=== PATIENT | male | born 1960 | race Caucasian/White ===

== ENCOUNTER 2021-05-17 10:43 | Outpatient (REF) | payer OTHER, SELFPAY ==
[2021-05-17 10:46] LABS: MANUAL DIFF FLAG NO
[2021-05-17 10:52] LABS: Basophils Percent Auto 0.8 % (0-2); Eosinophils Absolute Auto 0.2 X10*3/uL (0.0-0.4); Eosinophils Percent Auto 2.9 % (0-4); Hematocrit 44.5 % (42.0-52.0); Hemoglobin 14.9 g/dl (14.0-18.0); Imm Gran Abs Auto 0.01 X10*3/uL (0.00-0.03); Imm Gran Pct Auto 0.2 % (0.0-0.4); Lymphocytes Absolute Auto 1.5 X10*3/uL (1.2-4.9); Mean Corpuscular HGB Conc 33.5 g/dl (31.0-36.0); Mean Corpuscular Volume 86.6 fL (80.0-98.0); Monocytes Absolute Auto 0.5 X10*3/uL (0.1-1.2); Monocytes Percent Auto 9.7 % (2-11); Neutrophils Absolute Auto 2.9 x10*3/uL (2.0-8.3); Neutrophils Percent Auto 56.4 % (45-73); Platelet Count 217 X10*3/uL (160-400); Red Blood Count 5.14 X10*6/uL (4.60-5.80); Red Cell Distribution Width 12.1 % (11.0-16.0); White Blood Count 5.1 X10*3/uL (4.8-10.8)
[2021-05-17 11:00] LABS: Appearance Urine CLEAR; Color Urine YELLOW; Glucose Urine UA NEG (NEG); Leukocyte Esterase Urine NEG (NEG); Nitrite Urine NEG (NEG); Specific Gravity - Urine 1.025 (1.005-1.025); Urine Blood NEG (NEG); Urine Ketones NEG (NEG); Urine Protein NEG (NEG-TRACE)
[2021-05-17 11:36] LABS: Alanine Aminotransferase 26 U/L (0-40); Albumin Level 4.3 g/dL (3.5-5.0); Alkaline Phosphatase 67 U/L (39-117); Anion Gap 10 (12-20); Aspartate Amino Transferase 21 U/L (5-37); Bilirubin Total 0.9 mg/dL (0.0-1.0); Blood Urea Nitrogen 13 mg/dL (9-16); Calcium 9.3 mg/dL (8.4-10.2); Carbon Dioxide 29 mmol/L (22-29); Chloride 108 mmol/L (96-108); Cholesterol 242 mg/dL; Estimated Glomerular Filt Rate > 60; Glucose Fasting 98 mg/dL (60-99); HDL Cholesterol 54 mg/dL; LDL Cholesterol Calculated 166 mg/dl; Sodium 143 mmol/L (135-145); Total Protein 7.2 g/dL (6.5-8.0); Triglycerides 113 mg/dL
[2021-05-17 11:45] LABS: PSA,Total (Free>4and<10) 0.66 ng/mL (0.00-4.00)
== END 2021-05-17 10:44 | disposition home or self-care (01) ==
LOC: HO.LNP 10:43
PROVIDERS: Visit Provider Internal Medicine
DX: Z00.00 Encounter for general adult medical examination without abnormal findings (principal); Z12.5 Encounter for screening for malignant neoplasm of prostate; I10 Essential (primary) hypertension; E78.00 Pure hypercholesterolemia, unspecified
CPT/HCPCS: 80053; 80061; 81003; 84153; 85025

== ENCOUNTER 2021-12-17 10:46 | Day surgery (SDC) | payer OTHER, SELFPAY ==
[2021-12-10 15:34] VITALS: BMI 30.8
[2021-12-10 15:38] VITALS: BMI 30.4
--- NOTE | 2021-12-14 08:49 | HO.ANESPROP2 ---
Documented by User: Candice Lange NP 12/14/21 08:50 HPI - Anesthesia Eval Consult details Narrative: 61yo M for Colonoscopy [facility] Past Medical History Medical History Seasonal allergies Surgical History Surgical History (Updated 12/10/21 @ 15:32 by Celsa Forman RN) H/O colonoscopy Hx of left inguinal hernia repair Hx of right inguinal hernia repair Social History Social History (Updated 12/10/21 @ 15:33 by Celsa Forman RN) Household Members: Spouse Are you a primary child day care provider to a significant other at home: No Do you presently have visiting nurse or other home services: No Patient Tobacco Use Status: Former Tobacco user Quit Date: as teenager Tobacco use type: Cigarette Use of substances other than those prescribed or required for medical reasons: No Have you been hit, kicked, punched, or otherwise hurt by someone within the past year? If so, by whom?: No Are you DNR?: No Advance Directives: No Advance Directives Information Provided: Yes (brochure mailed) Advance Directives on File: No Recently lost weight without trying: No Eating poorly because of decreased appetite: No Nutrition Risks: No Nutritional Risk Poor oral hygiene: No Meds Allergies Allergy/AdvReac Type Severity Reaction Status Date / Time ENVIRONMENTAL Allergy Intermediate HAYFEVER Uncoded 01/20/20 15:42 Home Medications Medication Instructions Recorded Confirmed Last Taken Type omega 8-rqn-xmz-fish oil 1,200 mg 1 cap PO DAILY 12/10/21 12/10/21 12/10/21 History (144 mg-216 mg) capsule (Fish Oil) Exam Exam Date and Time: December 14, 2021 0849 Height,Weight and Vital Signs: Height 5 ft 9 in Weight 93.44 kg Pertinent Lab Results Pertinent Lab Results: Laboratory Tests 05/17/21 05/17/21 07:30 07:30 WBC 5.1 Hgb 14.9 Hct 44.5 Plt Count 217 Sodium 143 Potassium 4.0 Chloride 108 Carbon Dioxide 29 BUN 13 Creatinine 1.07 Assessment and Plan Assessment Anesthesia Assessment: Chart Reviewed Documented by User: Vince Peck MD 12/17/21 12:01 [facility] Past Medical History Medical History Seasonal allergies Family History Family history of problems with anesthesia: No Surgical History Surgical History (Updated 12/10/21 @ 15:32 by Celsa Forman RN) H/O colonoscopy Hx of left inguinal hernia repair Hx of right inguinal hernia repair History of Problems with Anesthesia: No Social History Social History (Updated 12/10/21 @ 15:33 by Celsa Forman RN) Household Members: Spouse Are you a primary child day care provider to a significant other at home: No Do you presently have visiting nurse or other home services: No Patient Tobacco Use Status: Former Tobacco user Quit Date: as teenager Tobacco use type: Cigarette Use of substances other than those prescribed or required for medical reasons: No Have you been hit, kicked, punched, or otherwise hurt by someone within the past year? If so, by whom?: No Are you DNR?: No Advance Directives: No Advance Directives Information Provided: Yes (brochure mailed) Advance Directives on File: No Recently lost weight without trying: No Eating poorly because of decreased appetite: No Nutrition Risks: No Nutritional Risk Poor oral hygiene: No Meds Allergies Allergy/AdvReac Type Severity Reaction Status Date / Time ENVIRONMENTAL Allergy Intermediate HAYFEVER Uncoded 01/20/20 15:42 Home Medications Medication Instructions Recorded Confirmed Last Taken Type omega 2-wcx-yzy-fish oil 1,200 mg 1 cap PO DAILY 12/10/21 12/10/21 12/10/21 History (144 mg-216 mg) capsule (Fish Oil) Exam Airway Mallampati Class: II TM Dist: >3cm Neck ROM: Full Loose/Missing/Broken Teeth: No Heart: rrr Lungs: clear Assessment and Plan Final Anesthetic Review Family History of Problems with Anesthesia: No History of Problems with Anesthesia: No NPO: Yes ASA Class: I Final Preanesthetic Review: No Changes in Pt Med Stat, Meds/Allgs Chart Reviewed, Consent Obtained/Reviewed and Anes Risks/Benef Reviewed Patient Risk: Low Procedure Risk: Low Anesthetic Plan Anesthetic Plan: MAC: Disposition: Standard PACU
[2021-12-17 11:03] VITALS: BP 148/85; PULSE 70; RESP 17; TEMP 36.6; O2SAT 97
[2021-12-17] MEDS: Lactated Ringers 1,000 ML 100 ML IVCONT (11:25)
[2021-12-17 12:13] VITALS: BP 128/74; PULSE 64; RESP 16; TEMP 36.9; O2SAT 97
--- NOTE | 2021-12-17 12:56 | PM.OP ---
Brief Operative Note Date of Service: 12/17/21 Pre-op diagnosis: Screening Post-op diagnosis: other (Diverticulosis) Procedure: Colonoscopy to the cecum and TI Surgeon: Chilo Bennett Anesthesia: MAC Was an Corporation Secretary used for this Procedure?: No Estimated blood loss (mL): 0 Pathology: none sent Condition: stable Disposition: PACU
[2021-12-17 12:58] VITALS: BP 119/72; PULSE 67; RESP 20; TEMP 36.9; O2SAT 97
--- NOTE | 2021-12-17 23:16 | OP_ITS ---
SURGEON: Chilo Bennett MD INDICATIONS: The patient presents for evaluation of personal history of tubular adenoma of the colon and colorectal cancer screening. Full consent obtained from him for this, including risks of bleeding and perforation. PREOPERATIVE DIAGNOSIS: POSTOPERATIVE DIAGNOSIS: PROCEDURE PERFORMED: Colonoscopy to cecum and terminal ileum. ESTIMATED BLOOD LOSS: COMPLICATIONS: ANESTHESIA: Monitored anesthesia care. ASSISTANTS: SPECIMENS: PREOPERATIVE DIAGNOSES: Colorectal cancer screening and personal history of tubular adenoma of the colon. POSTOPERATIVE DIAGNOSES: Colorectal cancer screening and personal history of tubular adenoma of the colon, diverticulosis, internal hemorrhoids. DESCRIPTION OF PROCEDURE: The patient was placed in the left lateral decubitus position. The digital rectal exam revealed no abnormalities. The Olympus video pediatric colonoscope was entered into the rectum and advanced easily to the cecum. Once in the cecum, I did identify normal-appearing cecal pouch with appendiceal orifice and a normal-appearing ileocecal valve. The terminal ileum was cannulated and appeared normal. Scope was withdrawn back in the colon. The entire cecum and ileocecal valve appeared normal. The scope was slowly withdrawn assessing all mucosal surfaces carefully. Preparation was excellent. I did not visualize any sign of polyps, colitis, nor angiodysplasia. There was a mild amount of sigmoid diverticulosis. In the rectum, scope was retroflexed visualizing internal hemorrhoids, but no other pathology. The rectal mucosa appeared normal. Scope was straightened and withdrawn from the patient. He tolerated the procedure well and was returned to recovery area in stable condition. IMPRESSION: 1. Mild sigmoid diverticulosis. 2. Internal hemorrhoids. PLAN: I would recommend a repeat colonoscopy in 5 years for further surveillance. He will, otherwise, see me on a p.r.n. basis. MD DORCAS Gallardo/YING / [id number]
== END 2021-12-17 13:43 | disposition home or self-care (01) ==
PROVIDERS: PCP Internal Medicine; Visit Provider Internal Medicine
PROC: 0DJD8ZZ Inspection of Lower Intestinal Tract, Via Natural or Artificial Opening Endoscopic (ICD-10-PCS; CPT 45378; principal; 2021-12-17 12:00)
DX: Z12.11 Encounter for screening for malignant neoplasm of colon (principal); Z86.010 Personal history of colon polyps; K57.30 Diverticulosis of large intestine without perforation or abscess without bleeding; K64.8 Other hemorrhoids; J30.2 Other seasonal allergic rhinitis; Z79.899 Other long term (current) drug therapy; Z87.891 Personal history of nicotine dependence
CPT/HCPCS: 45378

== ENCOUNTER → 2022-07-01 08:06 | Outpatient (BNVA) | payer SELFPAY | PROVIDERS: PCP Internal Medicine; Visit Provider Internal Medicine | DX: Z02.79 Encounter for issue of other medical certificate (principal) ==

== ENCOUNTER 2022-07-08 11:12 | Outpatient (REF) | payer SELFPAY ==
[2022-07-08 11:19] LABS: MANUAL DIFF FLAG NO
[2022-07-08 11:33] LABS: Basophils Absolute Auto 0.1 X10*3/uL (0.0-0.2); Basophils Percent Auto 0.9 % (0-2); Eosinophils Absolute Auto 0.2 X10*3/uL (0.0-0.4); Eosinophils Percent Auto 3.8 % (0-4); Hematocrit 45.8 % (42.0-52.0); Hemoglobin 15.1 g/dl (14.0-18.0); Imm Gran Abs Auto 0.01 X10*3/uL (0.00-0.03); Imm Gran Pct Auto 0.2 % (0.0-0.4); Lymphocytes Absolute Auto 1.7 X10*3/uL (1.2-4.9); Lymphocytes Percent Auto 30.5 % (20-40); Mean Corpuscular Hemoglobin 28.5 pg (27.0-33.0); Mean Corpuscular Volume 86.6 fL (80.0-98.0); Mean Platelet Volume 11.9 fL (9.4-12.4); Monocytes Absolute Auto 0.5 X10*3/uL (0.1-1.2); Monocytes Percent Auto 8.8 % (2-11); Neutrophils Absolute Auto 3.1 x10*3/uL (2.0-8.3); Neutrophils Percent Auto 55.8 % (45-73); Platelet Count 213 X10*3/uL (160-400); Red Blood Count 5.29 X10*6/uL (4.60-5.80); Red Cell Distribution Width 12.8 % (11.0-16.0); White Blood Count 5.5 X10*3/uL (4.8-10.8)
[2022-07-08 12:01] LABS: Alanine Aminotransferase 30 U/L (0-40); Albumin Level 4.2 g/dL (3.5-5.0); Alkaline Phosphatase 66 U/L (39-117); Anion Gap 11 (12-20); Aspartate Amino Transferase 22 U/L (5-37); Blood Urea Nitrogen 18 mg/dL (9-16); Calcium 8.9 mg/dL (8.4-10.2); Carbon Dioxide 26 mmol/L (22-29); Chloride 107 mmol/L (96-108); Cholesterol 266 mg/dL; Estimated Glomerular Filt Rate > 60; Glucose Fasting 98 mg/dL (60-99); HDL Cholesterol 54 mg/dL; LDL Cholesterol Calculated 196 mg/dl; Sodium 140 mmol/L (135-145); Total Protein 6.8 g/dL (6.5-8.0); Triglycerides 84 mg/dL
[2022-07-08 12:16] LABS: PSA,Total (Free>4and<10) 0.81 ng/mL (0.00-4.00)
== END 2022-07-08 11:13 | disposition home or self-care (01) ==
LOC: HO.LNP 11:12
PROVIDERS: Visit Provider Internal Medicine
DX: Z00.00 Encounter for general adult medical examination without abnormal findings (principal); Z12.5 Encounter for screening for malignant neoplasm of prostate; E78.00 Pure hypercholesterolemia, unspecified; I10 Essential (primary) hypertension
CPT/HCPCS: 80053; 80061; 84153; 85025

== ENCOUNTER 2023-01-13 10:39 | Outpatient (REF) | payer OTHER, SELFPAY ==
[2023-01-13 11:29] LABS: Cholesterol 227 mg/dL (<200); HDL Cholesterol 52 mg/dL (>40); LDL Cholesterol Calculated 157 mg/dL (<100); Triglycerides 94 mg/dL (<150)
[2023-01-13 11:31] LABS: Alanine Aminotransferase 17 U/L (0-40); Alkaline Phosphatase 60 U/L (39-117); Aspartate Amino Transferase 16 U/L (5-37); Bilirubin Direct 0.2 mg/dL (0.0-0.5); Bilirubin Total 0.6 mg/dL (0.0-1.0); Total Protein 6.8 g/dL (6.5-8.0)
[2023-01-13 11:57] LABS: Reflex LDLD? No
== END 2023-01-13 10:40 | disposition home or self-care (01) ==
LOC: HO.LNP 10:39
PROVIDERS: PCP Internal Medicine; Visit Provider Internal Medicine
DX: E78.00 Pure hypercholesterolemia, unspecified (principal)
CPT/HCPCS: 80061; 80076

== ENCOUNTER 2023-07-11 11:53 | Outpatient (REF) | payer OTHER, SELFPAY ==
[2023-07-11 11:57] LABS: MANUAL DIFF FLAG NO
[2023-07-11 12:27] LABS: Basophils Absolute Auto 0.1 X10*3/uL (0.0-0.2); Eosinophils Absolute Auto 0.2 X10*3/uL (0.0-0.4); Eosinophils Percent Auto 3.6 % (0-4); Hemoglobin 15.1 g/dl (14.0-18.0); Imm Gran Abs Auto 0.02 X10*3/uL (0.00-0.03); Imm Gran Pct Auto 0.4 % (0.0-0.4); Lymphocytes Absolute Auto 1.7 X10*3/uL (1.2-4.9); Lymphocytes Percent Auto 31.7 % (20-40); Mean Corpuscular HGB Conc 33.6 g/dl (31.0-36.0); Mean Corpuscular Volume 86.5 fL (80.0-98.0); Mean Platelet Volume 11.4 fL (9.4-12.4); Monocytes Absolute Auto 0.5 X10*3/uL (0.1-1.2); Monocytes Percent Auto 9.6 % (2-11); Neutrophils Absolute Auto 2.8 x10*3/uL (2.0-8.3); Neutrophils Percent Auto 53.7 % (45-73); Platelet Count 217 X10*3/uL (160-400); White Blood Count 5.2 X10*3/uL (4.8-10.8)
[2023-07-11 12:29] LABS: Appearance Urine Clear; Color Urine Yellow; Glucose Urine UA Negative (Negative); Leukocyte Esterase Urine Negative (Negative); Nitrite Urine Negative (Negative); PH 6.5 (5.0-9.0); Specific Gravity - Urine 1.015 (1.005-1.025); Urine Blood Negative (Negative); Urine Ketones Negative (Negative); Urine Protein Negative (Neg-Trace)
[2023-07-11 12:35] LABS: Bacteria Urine None Seen (None Seen); Hyaline Casts Urine 0-2 /LPF (0-2); RBC Urine 0-2 /HPF (0-2); Squamous Epithelial Cell Urine 0-2 /HPF (0-2); WBC Urine 0-5 /HPF (0-5)
[2023-07-11 12:39] LABS: Estimated Average Glucose 105 mg/dL; Hemoglobin A1c % 5.3 % (<6.0)
[2023-07-11 12:48] LABS: Alanine Aminotransferase 23 U/L (0-40); Albumin Level 4.2 g/dL (3.5-5.0); Alkaline Phosphatase 71 U/L (39-117); Anion Gap 10 (12-20); Aspartate Amino Transferase 21 U/L (5-37); Bilirubin Total 0.9 mg/dL (0.0-1.0); Blood Urea Nitrogen 11 mg/dL (9-16); Carbon Dioxide 27 mmol/L (22-29); Chloride 106 mmol/L (96-108); Cholesterol 246 mg/dL (<200); Estimated Glomerular Filt Rate > 60; Glucose Fasting 93 mg/dL (60-99); HDL Cholesterol 52 mg/dL (>40); LDL Cholesterol Calculated 170 mg/dL (<100); Potassium 3.7 mmol/L (3.3-5.1); Sodium 139 mmol/L (135-145); Total Protein 7.1 g/dL (6.5-8.0); Triglycerides 121 mg/dL (<150)
[2023-07-11 13:06] LABS: PSA,Total (Free>4and<10) 0.97 ng/mL (0.00-4.00)
[2023-07-11 13:09] LABS: Creatinine Urine 144.49 mg/dL; Microalbum/Creatinine Ratio Ur 5.5 ug/mg cr (<30)
== END 2023-07-11 11:54 | disposition home or self-care (01) ==
LOC: HO.LNP 11:53
PROVIDERS: Visit Provider Internal Medicine
DX: Z00.00 Encounter for general adult medical examination without abnormal findings (principal); Z12.5 Encounter for screening for malignant neoplasm of prostate; I10 Essential (primary) hypertension; E78.00 Pure hypercholesterolemia, unspecified
CPT/HCPCS: 80053; 80061; 81001; 82043; 82570; 83036; 84153; 85025

== ENCOUNTER 2023-10-08 20:52 | Inpatient (IN) | payer OTHER, SELFPAY ==
--- NOTE | 2023-10-08 | ECG_ITS ---
Test Reason : CHEST PAIN Blood Pressure : / mmHG Vent. Rate : 067 BPM Atrial Rate : 067 BPM P-R Int : 142 ms QRS Dur : 092 ms QT Int : 428 ms P-R-T Axes : 058 -25 003 degrees QTc Int : 452 ms Normal sinus rhythm Normal ECG No previous ECGs available Referred By: Generic ED Physician Electronically Signed By:ALISA MCKEON MD
--- NOTE | ~2023-10-08 | US_ITS ---
EXAMINATION: US ABDOMEN LIMITED CLINICAL INFORMATION: Epigastric pain. COMPARISON: None available. TECHNIQUE: Real-time imaging of the gallbladder and common bile duct. FINDINGS: GALLBLADDER: The gallbladder is distended, measuring approximately 12 cm in length. Gallbladder wall thickness is at the upper limits of normal measuring 0.3 cm. Proximal gallstone identified which appears impacted at the gallbladder neck. Sonographic Dia sign is reportedly positive. COMMON BILE DUCT: Normal in caliber measuring 0.5 cm in diameter. Incidentally noted right hepatic cyst measuring up to 1.8 cm. US/US abdomen limited IMPRESSION: Distended gallbladder with gallstone, which appears impacted at the gallbladder neck. Sonographic Dia sign is reportedly positive. Findings are suspicious for acute cholecystitis in the proper clinical setting.
--- NOTE | ~2023-10-08 | XR_ITS ---
EXAMINATION: XR CHEST CLINICAL INFORMATION: Chest pain COMPARISON: None available. TECHNIQUE: Frontal view of the chest was obtained. FINDINGS: The cardiac and mediastinal contours are normal. The lungs are clear. No pleural effusion or pneumothorax. Degenerative changes of the spine. XR/XR chest 1V IMPRESSION: No evidence for acute disease in the chest.
--- NOTE | ~2023-10-08 | CT_ITS ---
EXAMINATION: CT ABDOMEN AND PELVIS WITH CONTRAST CLINICAL INFORMATION: Abdominal pain COMPARISON: None available. TECHNIQUE: Multidetector volumetric images were obtained from the superior aspect of the liver through the pubic symphysis following administration 85 mL of Omnipaque 350 intravenous contrast. Sagittal and coronal reformatted images were obtained on the technologist's workstation. Oral contrast: No This CT examination was performed using dose optimization techniques as appropriate, variously including the following: *Automated exposure control *Adjustment of mA and/or kV according to patient size (this includes techniques or standardized protocols for targeted exams where dose is matched to indication/reason for exam; i.e. extremities or head) *Use of iterative reconstruction technique DLP: 598 mGy-cm FINDINGS: LUNG BASES: The visualized lung bases are unremarkable. LIVER, GALLBLADDER, AND BILIARY TREE: The liver is normal in size, shape, and attenuation. Several scattered hepatic cysts are present, measuring up to approximately 6.3 cm in the left lobe. No biliary ductal dilatation is present. Proximal gallstones are present, and there is slight pericholecystic stranding which could reflect mild sequelae of acute cholecystitis. PANCREAS: Unremarkable. SPLEEN: Unremarkable. ADRENAL GLANDS: Unremarkable. KIDNEYS AND URETERS: Bilateral nephrograms are symmetric. No hydronephrosis or obstructing calculus identified. BLADDER: Unremarkable. GASTROINTESTINAL TRACT: Assessment for wall thickening in some segments of the colon is limited due to luminal collapse, though no significant pericolonic stranding is seen to strongly suggest a colitis. No evidence of bowel obstruction. The appendix is unremarkable. No free fluid or free air is seen. ABDOMINAL WALL: No significant hernia is appreciated. LYMPH NODES: Normal. VASCULAR: Scattered atherosclerotic calcification. PELVIC VISCERA: Unremarkable. OSSEOUS STRUCTURES: Mild degenerative changes in the spine. CT/CT abdomen pelvis w IV con IMPRESSION: Cholelithiasis with slight pericholecystic stranding which could reflect mild sequelae of acute cholecystitis in the proper clinical setting. Consider further evaluation with ultrasound.
--- NOTE | 2023-10-08 20:54 | ED_ITS ---
HPI - General Adult General Chief complaint: Chest Pain Stated complaint: Chest pain Time Seen by Provider: 10/08/23 21:31 Related Data Home Medications ?Medication ?Instructions ?Recorded ?Confirmed omega 4-pxi-izz-fish oil 1,200 mg 1 cap PO DAILY 12/10/21 12/10/21 (144 mg-216 mg) capsule (Fish Oil) Allergies Allergy/AdvReac Type Severity Reaction Status Date / Time ENVIRONMENTAL Allergy Intermediate HAYFEVER Uncoded 10/08/23 21:03 [facility] Past Medical History Medical History Seasonal allergies Surgical History Hx of left inguinal hernia repair Hx of right inguinal hernia repair H/O colonoscopy Social History Social History Household Members: Spouse Are you a primary healthcare corporate account director to a significant other at home: No Do you presently have visiting nurse or other home services: No Patient Tobacco Use Status: Former Tobacco user Tobacco use type: Cigarette Smoked in Last 30 Days: No Use of substances other than those prescribed or required for medical reasons: No Advance Directives: No Advance Directives Information Provided: No Do you have a plan to hurt others: No Plan Physical Exam ED Vital Signs: Vital Signs - 24 hr 10/08/23 21:01 10/08/23 21:26 10/08/23 23:47 Temperature 97.2 F 98.2 F 98.1 F Pulse Rate 57 54 64 Respiratory Rate 24 H 16 18 Blood Pressure 177/96 H 163/73 H 187/87 H Pulse Oximetry 95 98 99 Oxygen Delivery Method Room Air Room Air 10/09/23 01:48 10/09/23 03:47 Temperature 98.1 F 98.3 F Pulse Rate 63 66 Respiratory Rate 14 15 Blood Pressure 175/86 H 173/79 H Pulse Oximetry 98 95 Oxygen Delivery Method Room Air Room Air BMI result Body Mass Index 28.1 Course Course Course Narrative: This is a rapid medical exam performed by Krunal Temple NP: Additional HPI, ROS, PE not included below will be deferred to primary provider. Patient is a 62-year-old male presenting to the ED with complaint of chest pain, states it starts in the front and radiates through to the back, felt lightheaded. Has had similar episodes before but this is the most severe. Started on his way home from work around 5pm. Actively vomiting in triage. Worse after mowing the lawn and eating dinner. BP 177/96 in triage. Plan: EKG, labs, CXR Medications Administered Discontinued Medications Generic Name Dose Route Start Last Admin Trade Name Robyn PRN Reason Stop Dose Admin Hydromorphone HCl 0.5 mg 10/08/23 23:42 10/08/23 23:48 Hydromorphone Hcl 0.5 Mg/0.5 Ml Syringe IVPUSH 10/08/23 23:43 0.5 mg ONCE ONE Administration Protocol Hydromorphone HCl 0.5 mg 10/09/23 01:32 10/09/23 01:40 Hydromorphone Hcl 0.5 Mg/0.5 Ml Syringe IVPUSH 10/09/23 01:33 0.5 mg ONCE ONE Administration Protocol Sodium Chloride 1,000 mls @ 999 mls/hr 10/08/23 22:15 10/08/23 23:50 Ns IV 10/08/23 23:15 Infused .Q1H1M MARIANNE Infusion Ceftriaxone Sodium 2 gm/ 50 mls @ 100 mls/hr 10/09/23 03:50 10/09/23 04:47 Sodium Chloride IV 10/09/23 04:19 Infused ONCE ONE Infusion Iohexol 85 ml 10/08/23 22:22 10/08/23 22:22 Iohexol 350 Mg/Ml 100 Ml Infus..Btl IV 10/08/23 22:23 85 ml ONCE ONE Administration Metoclopramide HCl 10 mg 10/09/23 01:32 10/09/23 01:40 Metoclopramide Hcl 10 Mg/2 Ml Vial IVPUSH 10/09/23 01:33 10 mg ONCE ONE Administration Ondansetron HCl 4 mg 10/08/23 22:07 10/08/23 22:11 Ondansetron Hcl 4 Mg/2 Ml Vial IVPUSH 10/08/23 22:08 4 mg ONCE ONE Administration Ondansetron HCl 4 mg 10/08/23 23:43 10/08/23 23:48 Ondansetron Hcl 4 Mg/2 Ml Vial IVPUSH 10/08/23 23:44 4 mg ONCE ONE Administration Medical Decision Making Lab Data 10/08/23 21:10 10/08/23 21:10 Labs: Lab Results 10/08/23 Range/Units 21:10 WBC 7.8 (4.8-10.8) X10*3/uL RBC 5.06 (4.60-5.80) X10*6/uL Hgb 14.9 (14.0-18.0) g/dl Hct 41.6 L (42.0-52.0) % MCV 82.2 (80.0-98.0) fL MCH 29.4 (27.0-33.0) pg MCHC 35.8 (31.0-36.0) g/dl RDW 12.4 (11.0-16.0) % Plt Count 227 (160-400) X10*3/uL MPV 11.0 (9.4-12.4) fL Immature Gran % (Auto) 0.1 (0.0-0.4) % Neut % (Auto) 61.7 (45-73) % Lymph % (Auto) 28.0 (20-40) % [place] % (Auto) 6.9 (2-11) % Eos % (Auto) 2.3 (0-4) % Baso % (Auto) 1.0 (0-2) % Lymph # (Auto) 2.2 (1.2-4.9) X10*3/uL [place] # (Auto) 0.5 (0.1-1.2) X10*3/uL Eos # (Auto) 0.2 (0.0-0.4) X10*3/uL Baso # (Auto) 0.1 (0.0-0.2) X10*3/uL Abs Immat Gran (auto) 0.01 (0.00-0.03) X10*3/uL Absolute Neuts (auto) 4.8 (2.0-8.3) x10*3/uL Absolute Nucleated RBC 0.000 (0.0-0.012) X10*3/uL Nucleated RBC % (auto) 0.0 (0.0-0.2) /100WBC PT 11.7 (11.1-13.3) SEC INR 1.0 (0.9-1.1) Sodium 142 (135-145) mmol/L Potassium 3.7 (3.3-5.1) mmol/L Chloride 109 H (96-108) mmol/L Carbon Dioxide 19 L (22-29) mmol/L Anion Gap 18 (12-20) BUN 14 (9-16) mg/dL Creatinine 1.26 (0.5-1.4) mg/dL Estim Creat Clear Calc 65.2 Estimated GFR 58 Random Glucose 163 H (60-115) mg/dL Calcium 9.4 (8.4-10.2) mg/dL Total Bilirubin 0.5 (0.0-1.0) mg/dL AST 18 (5-37) U/L ALT 21 (0-40) U/L Alkaline Phosphatase 70 (39-117) U/L Troponin I High Sens < 2.7 (<3.5-35.0) ng/L Total Protein 7.4 (6.5-8.0) g/dL Albumin 4.4 (3.5-5.0) g/dL Lipase 49 (8-78) U/L Discharge Plan Discharge Clinical Impression: Acute cholecystitis Patient Disposition: Admitted As Inpatient Print Language: Malawian
[2023-10-08 21:01] VITALS: BP 177/96; PULSE 57; RESP 24; TEMP 36.2; O2SAT 95; BMI 28.1
[2023-10-08 21:15] LABS: MANUAL DIFF FLAG NO
[2023-10-08 21:20] LABS: Basophils Absolute Auto 0.1 X10*3/uL (0.0-0.2); Eosinophils Absolute Auto 0.2 X10*3/uL (0.0-0.4); Eosinophils Percent Auto 2.3 % (0-4); Hematocrit 41.6 % (42.0-52.0); Hemoglobin 14.9 g/dl (14.0-18.0); Imm Gran Abs Auto 0.01 X10*3/uL (0.00-0.03); Imm Gran Pct Auto 0.1 % (0.0-0.4); Lymphocytes Absolute Auto 2.2 X10*3/uL (1.2-4.9); Mean Corpuscular HGB Conc 35.8 g/dl (31.0-36.0); Mean Corpuscular Hemoglobin 29.4 pg (27.0-33.0); Mean Corpuscular Volume 82.2 fL (80.0-98.0); Monocytes Absolute Auto 0.5 X10*3/uL (0.1-1.2); Monocytes Percent Auto 6.9 % (2-11); Neutrophils Absolute Auto 4.8 x10*3/uL (2.0-8.3); Neutrophils Percent Auto 61.7 % (45-73); Platelet Count 227 X10*3/uL (160-400); Red Blood Count 5.06 X10*6/uL (4.60-5.80); Red Cell Distribution Width 12.4 % (11.0-16.0); White Blood Count 7.8 X10*3/uL (4.8-10.8)
[2023-10-08 21:26] VITALS: BP 163/73; PULSE 54; RESP 16; TEMP 36.8; O2SAT 98
[2023-10-08 21:28] LABS: Prothrombin Time 11.7 SEC (11.1-13.3)
[2023-10-08 21:36] LABS: Alanine Aminotransferase 21 U/L (0-40); Albumin Level 4.4 g/dL (3.5-5.0); Alkaline Phosphatase 70 U/L (39-117); Anion Gap 18 (12-20); Aspartate Amino Transferase 18 U/L (5-37); Bilirubin Total 0.5 mg/dL (0.0-1.0); Blood Urea Nitrogen 14 mg/dL (9-16); Calcium 9.4 mg/dL (8.4-10.2); Carbon Dioxide 19 mmol/L (22-29); Chloride 109 mmol/L (96-108); Creatinine Clr Calc Pharmacy 65.2; Estimated Glomerular Filt Rate 58; Glucose Random 163 mg/dL (60-115); Potassium 3.7 mmol/L (3.3-5.1); Sodium 142 mmol/L (135-145); Total Protein 7.4 g/dL (6.5-8.0)
[2023-10-08 21:50] LABS: Troponin-I High Sensitivity < 2.7 ng/L (<3.5-35.0)
--- NOTE | 2023-10-08 22:06 | ED_ITS ---
HPI - Chest Pain General Chief Complaint: Chest Pain Stated Complaint: Chest pain Time Seen by Provider: 10/08/23 21:31 History of Present Illness HPI narrative: Patient is a 62 old presented today with having epigastric pain radiating to the back. The pain started at approximately 17:00 today. It got better got worse again there has no change with food positive nausea vomiting. No abdominal surgery in the past. Had a previous episode something similar a couple of months ago. No coughing or congestion or upper respiratory symptoms. No history of diabetes, hypertension. Positive history of borderline cholesterol. No history of [place] no family history of [place]. Related Data Home Medications ?Medication ?Instructions ?Recorded ?Confirmed omega 3-ndk-rno-fish oil 1,200 mg 1 cap PO DAILY 12/10/21 12/10/21 (144 mg-216 mg) capsule (Fish Oil) Allergies Allergy/AdvReac Type Severity Reaction Status Date / Time ENVIRONMENTAL Allergy Intermediate HAYFEVER Uncoded 10/08/23 21:03 Review of Systems 2 Review of Systems: Positive abdominal pain Yes all other systems are reviewed and are negative PMFSH Past Medical History Attestation statement: The following information was validated with the patient. Medical History Seasonal allergies Surgical History Hx of left inguinal hernia repair Hx of right inguinal hernia repair H/O colonoscopy Social History Social History Household Members: Spouse Are you a primary daycare worker to a significant other at home: No Do you presently have visiting nurse or other home services: No Patient Tobacco Use Status: Former Tobacco user Tobacco use type: Cigarette Smoked in Last 30 Days: No Use of substances other than those prescribed or required for medical reasons: No Advance Directives: No Advance Directives Information Provided: No Do you have a plan to hurt others: No Plan Physical Exam 2 Vital Signs: Vital Signs: Last Vital Signs Temp 98.3 F 10/09/23 03:47 Pulse 66 10/09/23 03:47 Resp 15 10/09/23 03:47 BP 173/79 H 10/09/23 03:47 Pulse Ox 95 10/09/23 03:47 O2 Del Method Room Air 10/09/23 03:47 BMI result Body Mass Index 28.1 Appearance: Alert. Oriented X3. No acute distress. Eyes: Pupils equal, round and reactive to light. ENT: Pharynx normal. Neck: Normal inspection. Neck supple. No lymph nodes noted. No crepitus CVS: Normal heart rate and rhythm. Pulses normal. Normal S1 and S2 Respiratory: No respiratory distress. Breath sounds normal. No Wheezing. No rales Abdomen: Positive epigastric tenderness no rebound or guarding. No rigidity. No distention. good BS x4 Skin: Skin warm and dry. Normal skin color. Normal skin turgor. Extremities: No lower extremity edema. Neurovascular intact to all extremities. No Lacerations. No Rash Neuro: Oriented X 3. No motor deficit. No sensory deficit. Moving all extermities. No slurred speech Medications Administered Discontinued Medications Generic Name Dose Route Start Last Admin Trade Name Freq PRN Reason Stop Dose Admin Hydromorphone HCl 0.5 mg 10/08/23 23:42 10/08/23 23:48 Hydromorphone Hcl 0.5 Mg/0.5 Ml Syringe IVPUSH 10/08/23 23:43 0.5 mg ONCE ONE Administration Protocol Hydromorphone HCl 0.5 mg 10/09/23 01:32 10/09/23 01:40 Hydromorphone Hcl 0.5 Mg/0.5 Ml Syringe IVPUSH 10/09/23 01:33 0.5 mg ONCE ONE Administration Protocol Sodium Chloride 1,000 mls @ 999 mls/hr 10/08/23 22:15 10/08/23 23:50 Ns IV 10/08/23 23:15 Infused .Q1H1M MARIANNE Infusion Ceftriaxone Sodium 2 gm/ 50 mls @ 100 mls/hr 10/09/23 03:50 10/09/23 04:47 Sodium Chloride IV 10/09/23 04:19 Infused ONCE ONE Infusion Iohexol 85 ml 10/08/23 22:22 10/08/23 22:22 Iohexol 350 Mg/Ml 100 Ml Infus..Btl IV 10/08/23 22:23 85 ml ONCE ONE Administration Metoclopramide HCl 10 mg 10/09/23 01:32 10/09/23 01:40 Metoclopramide Hcl 10 Mg/2 Ml Vial IVPUSH 10/09/23 01:33 10 mg ONCE ONE Administration Ondansetron HCl 4 mg 10/08/23 22:07 10/08/23 22:11 Ondansetron Hcl 4 Mg/2 Ml Vial IVPUSH 10/08/23 22:08 4 mg ONCE ONE Administration Ondansetron HCl 4 mg 10/08/23 23:43 10/08/23 23:48 Ondansetron Hcl 4 Mg/2 Ml Vial IVPUSH 10/08/23 23:44 4 mg ONCE ONE Administration Medical Decision Making Medical Decision Making [facility] Narrative: Patient has abdominal pain from the epigastric area radiating to the back. CT scan consistent with having cholecystitis. An ultrasound confirms that there is gallbladder wall thickening there is a stone at the neck of the gallbladder consistent with having cholecystitis. Antibiotic was started. Patient's case discussed with surgery. Will admit Differential Diagnosis Differential Diagnoses: The differential diagnosis associated with the presentation includes ACS, pancreatitis, cholecystitis Admission/Observation Consideration of admission/observation: Escalation of care including admission/observation considered Consult Healthcare Provider Management of the patient was discussed with: Concrete Block Maker (Surgery) Lab Data [facility] Lab Attestation statement: I reviewed the patient's lab results. 10/08/23 21:10 10/08/23 21:10 Labs: Lab Results 10/08/23 Range/Units 21:10 WBC 7.8 (4.8-10.8) X10*3/uL RBC 5.06 (4.60-5.80) X10*6/uL Hgb 14.9 (14.0-18.0) g/dl Hct 41.6 L (42.0-52.0) % MCV 82.2 (80.0-98.0) fL MCH 29.4 (27.0-33.0) pg MCHC 35.8 (31.0-36.0) g/dl RDW 12.4 (11.0-16.0) % Plt Count 227 (160-400) X10*3/uL MPV 11.0 (9.4-12.4) fL Immature Gran % (Auto) 0.1 (0.0-0.4) % Neut % (Auto) 61.7 (45-73) % Lymph % (Auto) 28.0 (20-40) % [place] % (Auto) 6.9 (2-11) % Eos % (Auto) 2.3 (0-4) % Baso % (Auto) 1.0 (0-2) % Lymph # (Auto) 2.2 (1.2-4.9) X10*3/uL [place] # (Auto) 0.5 (0.1-1.2) X10*3/uL Eos # (Auto) 0.2 (0.0-0.4) X10*3/uL Baso # (Auto) 0.1 (0.0-0.2) X10*3/uL Abs Immat Gran (auto) 0.01 (0.00-0.03) X10*3/uL Absolute Neuts (auto) 4.8 (2.0-8.3) x10*3/uL Absolute Nucleated RBC 0.000 (0.0-0.012) X10*3/uL Nucleated RBC % (auto) 0.0 (0.0-0.2) /100WBC PT 11.7 (11.1-13.3) SEC INR 1.0 (0.9-1.1) Sodium 142 (135-145) mmol/L Potassium 3.7 (3.3-5.1) mmol/L Chloride 109 H (96-108) mmol/L Carbon Dioxide 19 L (22-29) mmol/L Anion Gap 18 (12-20) BUN 14 (9-16) mg/dL Creatinine 1.26 (0.5-1.4) mg/dL Estim Creat Clear Calc 65.2 Estimated GFR 58 Random Glucose 163 H (60-115) mg/dL Calcium 9.4 (8.4-10.2) mg/dL Total Bilirubin 0.5 (0.0-1.0) mg/dL AST 18 (5-37) U/L ALT 21 (0-40) U/L Alkaline Phosphatase 70 (39-117) U/L Troponin I High Sens < 2.7 (<3.5-35.0) ng/L Total Protein 7.4 (6.5-8.0) g/dL Albumin 4.4 (3.5-5.0) g/dL Lipase 49 (8-78) U/L Radiology Impression Discussion of test interpretation with radiology: I have reviewed the radiologist's reading. Independent Historian Clinical information obtained from an independent historian. History obtained from or confirmed by: Spouse Discharge Plan Discharge Clinical Impression: Acute cholecystitis Patient Disposition: Admitted As Inpatient Prescriptions: No Action omega 3-eyl-qdc-fish oil [Fish Oil] 1,200 (144-216) mg Capsule 1 cap PO DAILY Print Language: Romansh
[2023-10-08] MEDS: ondansetron HCL 4 MG/2 ML VIAL IVPUSH ×2 (22:11→23:48)
[2023-10-08] MEDS: 0.9 % Sodium Chloride 1,000 ML 999 ML IV (22:13)
[2023-10-08 22:21] LABS: Lipase 49 U/L (8-78)
[2023-10-08] MEDS: iohexoL 350 MG/ML 100 ML INFUS..BTL 85 ML IV (22:22)
[2023-10-08 23:47] VITALS: BP 187/87; PULSE 64; RESP 18; TEMP 36.7; O2SAT 99
[2023-10-08] MEDS: HYDROmorphone HCl 0.5 MG/0.5 ML SYRINGE IVPUSH (23:48)
[2023-10-09] VITALS (15 sets, daily range): BP systolic 115–175; BP diastolic 58–87; PULSE 59–82; RESP 14–18; TEMP 36.2–37.7; O2SAT 93–98; BMI 29.5
--- NOTE | 2023-10-09 01:32 | PC.NURSE ---
pt vomitting 2x in ED, pain is increasing. MD aware
[2023-10-09] MEDS: Metoclopramide HCl 10 MG/2 ML VIAL IVPUSH (01:40)
[2023-10-09] MEDS: HYDROmorphone HCl 0.5 MG/0.5 ML SYRINGE IVPUSH ×2 (01:40→08:43)
--- NOTE | 2023-10-09 03:03 | PC.NURSE ---
pt able to rest after electromedical service engineer per MAR. denies MAR
[2023-10-09] MEDS: cefTRIAXone sodium 2 GM in 0.9 % Sodium Chloride 50 ML IV (04:04)
--- NOTE | 2023-10-09 05:22 | P.HPGS_ITS ---
History of Present Illness History of Present Illness Date of Service: 10/09/23 Chief complaint: Acute cholecystitis Narrative: Ross Barber is a 62 year old male presenting with complaints of abdominal pain in the lower abdomen extending into the back beginning at 17:00 last evening after eating dinner. He reports a proximally three-month history of intermittent abdominal pain of short duration which persisted despite changing in diet. Current episode was is most severe and was associated with nausea and vomiting. He subsequently presented to the emergency department for further evaluation. Workup revealed normal WBC and LFTs however CT abdomen pelvis and ultrasound revealed gallstones within the gallbladder in the neck of the gallbladder. There was also wall thickening and a sonographic Dia sign. Findings are suggestive of acute cholecystitis. He has admitted to the surgical service for further management. Review of Systems Review of Systems: Yes all other systems are reviewed and are negative Constitutional: Constitutional: Reports chills, Denies fever(s), Denies headache(s), Reports poor appetite and Denies weakness ENT: Denies headache(s) Cardiovascular: Cardiovascular: Reports chest pain, Denies irregular heart rhythm, Denies palpitations and Denies dyspnea Respiratory: Respiratory: Denies cough, Denies excessive phlegm production and Denies dyspnea Gastrointestinal: Gastrointestinal: Reports abdominal pain, Reports bloating, Denies change in bowel habits, Denies constipation, Denies heartburn, Denies diarrhea, Reports nausea and Reports vomiting Genitourinary: Genitourinary: Denies difficulty urinating and Denies urinary frequency Musculoskeletal: Musculoskeletal: Denies back pain, Denies muscle weakness and Denies numbness Integumentary/Breasts: Skin/Breast: Denies changing lesions and Denies unusual bruising Neurologic: Denies headache(s), Denies numbness, Denies paresthesias and Denies weakness Psychiatric: Psychiatric: Denies anxiety and Denies depression Endocrine: Endocrine: Denies palpitations Hematologic/Lymphatic: Hematologic/Lymphatic: Denies lymphadenopathy PMFSH Past Medical History Medical History Seasonal allergies Surgical History Surgical History Hx of left inguinal hernia repair Hx of right inguinal hernia repair H/O colonoscopy Social History Social History Household Members: Spouse Are you a primary home care physical therapist to a significant other at home: No Do you presently have visiting nurse or other home services: No Patient Tobacco Use Status: Former Tobacco user Tobacco use type: Cigarette Meds Allergies Allergy/AdvReac Type Severity Reaction Status Date / Time ENVIRONMENTAL Allergy Intermediate HAYFEVER Uncoded 10/08/23 21:03 Active Medications: Current Medications Hydromorphone HCl (Hydromorphone Hcl 0.5 Mg/0.5 Ml Syringe) 0.5 mg IVPUSH Q3H PRN; Protocol PRN Reason: Pain, Severe (Pain Scale 7-10) Acetaminophen (Ofirmev) 1,000 mg in 100 mls @ 400 mls/hr IV Q6H MARIANNE Stop: 10/09/23 23:29 Dextrose/Lactated Ringer's (D5lr) 1,000 mls @ 125 mls/hr IVCONT .Q8H MARIANNE Ondansetron HCl (Ondansetron Hcl 4 Mg/2 Ml Vial) 4 mg IVPUSH QID PRN PRN Reason: Nausea Sodium Chloride (0.9 % Sodium Chloride Flush 3 Ml Syringe) 3 ml IVFLUSH QSHIFT MARIANNE Zolpidem Tartrate (Zolpidem Tartrate 5 Mg Tablet) 5 mg PO BEDTIME PRN PRN Reason: Insomnia Home Medications ?Medication ?Instructions ?Recorded ?Confirmed ?Last Taken ?Type omega 3-xtc-umb-fish oil 1,200 mg 1 cap PO DAILY 12/10/21 12/10/21 12/10/21 History (144 mg-216 mg) capsule (Fish Oil) Physical Exam Vital Signs: Vital Signs: Last Vital Signs Temp 98.3 F 10/09/23 03:47 Pulse 66 10/09/23 03:47 Resp 15 10/09/23 03:47 BP 173/79 H 10/09/23 03:47 Pulse Ox 95 10/09/23 03:47 O2 Del Method Room Air 10/09/23 03:47 BMI result Body Mass Index 28.1 Const: General: cooperative and no acute distress Nutritional Appearance: well nourished Orientation/consciousness: patient oriented x3 Limitations: no limitations HEENT: Head: Yes normocephalic and Yes atraumatic Ears: hearing grossly normal bilaterally Resp: Effort & Inspection: normal respiratory effort, no audible wheezes, no cough and no respiratory distress Cardio: Jugular venous distension: no JVD GI: Inspection: Yes normal to inspection Palpation (GI): Soft to palpation, Tenderness to palpation present (GI) in the LLQ, in the RLQ, in the RUQ and Dia's sign positive, no guarding, not rigid and No hepatosplenomegaly present Skin: Other: Warm, dry, no rash Neuro: General: patient oriented x3 Extrem: General: Yes no clubbing, cyanosis or edema Results Results Labs: Short CBC 10/08/23 Range/Units 21:10 WBC 7.8 (4.8-10.8) X10*3/uL Hgb 14.9 (14.0-18.0) g/dl Hct 41.6 L (42.0-52.0) % Plt Count 227 (160-400) X10*3/uL BMP 10/08/23 21:10 Sodium 142 Potassium 3.7 Chloride 109 H Carbon Dioxide 19 L BUN 14 Creatinine 1.26 Calcium 9.4 Liver Function 10/08/23 Range/Units 21:10 Total Bilirubin 0.5 (0.0-1.0) mg/dL AST 18 (5-37) U/L ALT 21 (0-40) U/L Alkaline Phosphatase 70 (39-117) U/L Albumin 4.4 (3.5-5.0) g/dL Abdomen CT scan report/results: image reviewed CT scan - pelvis: image reviewed Abdominal ultrasound report/results: image reviewed Assessment and Plan (1) Acute cholecystitis: Status: Acute Plan 62-year-old male patient presenting with complaints of abdominal pain found on workup to have acute cholecystitis due to cholelithiasis. He has had multiple episodes of similar pain, the current episode being the worst. We discussed options including dietary change verses laparoscopic/open cholecystectomy. After discussion of the procedure, risks, and alternatives, he consents to the laparoscopic or possible open cholecystectomy. Been added onto the operative schedule for today. He denies eating or drinking since 17:00 yesterday. Quality Stroke Does the patient have a stroke diagnosis?: No VTE Prior VTE?: No VTE Risk Level:: Surgical - moderate VTE Device Contraindication: N/A - Device Ordered VTE Drug Contraindication: Treatment Not Indicated Procedures Date of Service Date of Service: 10/09/23
[2023-10-09] MEDS: Acetaminophen 1,000 MG/100 ML PIGGYBACK 400 MG IV ×2 (05:47→17:36)
[2023-10-09] MEDS: cefoTEtan disodium 2 GM in 0.9 % Sodium Chloride 50 ML IV (06:07)
[2023-10-09] MEDS: Dextrose 5 % and Lactated Ring 1,000 ML 125 ML IVCONT ×3 (06:40→21:17)
--- NOTE | 2023-10-09 07:13 | PC.NURSE ---
This RN assumed care. Pt alert and oriented, breathing even and unlabored, skin warm and dry. Pt reports pain is more controlled at this time after medications. No nausea or new complaints. Surgery at bedside.
--- NOTE | 2023-10-09 07:41 | PC.NURSE ---
Report given to JAZZY RN
[2023-10-09] MEDS: ondansetron HCL 4 MG/2 ML VIAL IVPUSH (08:41)
--- NOTE | 2023-10-09 09:16 | PHA.MEDREC ---
Addendum entered by Verónica Rodriguez RPh 10/09/23 09:21: Verified by [facility] Original Note: Pharmacy Consult ? Medication Reconciliation Pharmacy has completed the medication reconciliation.
--- NOTE | 2023-10-09 09:35 | HO.ANESPROP2 ---
[facility] Active Problems Active Problems: All Active Problems Acute cholecystitis (Acute) Past Medical History Medical History Seasonal allergies Family History Family history of problems with anesthesia: No Surgical History Surgical History Hx of left inguinal hernia repair Hx of right inguinal hernia repair H/O colonoscopy History of Problems with Anesthesia: No Social History Social History Household Members: Spouse Are you a primary career development coordinator/teacher to a significant other at home: No Do you presently have visiting nurse or other home services: No Patient Tobacco Use Status: Former Tobacco user Tobacco use type: Cigarette Meds Allergies Allergy/AdvReac Type Severity Reaction Status Date / Time ENVIRONMENTAL Allergy Intermediate HAYFEVER Uncoded 10/09/23 08:02 Active Medications: Current Medications Hydromorphone HCl (Hydromorphone Hcl 0.5 Mg/0.5 Ml Syringe) 0.5 mg IVPUSH Q3H PRN; Protocol PRN Reason: Pain, Severe (Pain Scale 7-10) Last Admin: 10/09/23 08:43 Dose: 0.5 mg Acetaminophen (Ofirmev) 1,000 mg in 100 mls @ 400 mls/hr IV Q6H MARIANNE Stop: 10/09/23 23:29 Last Infusion: 10/09/23 06:07 Dose: Infused Dextrose/Lactated Ringer's (D5lr) 1,000 mls @ 125 mls/hr IVCONT .Q8H [facility] Last Admin: 10/09/23 06:40 Dose: 125 mls/hr Ondansetron HCl (Ondansetron Hcl 4 Mg/2 Ml Vial) 4 mg IVPUSH QID PRN PRN Reason: Nausea Last Admin: 10/09/23 08:41 Dose: 4 mg Sodium Chloride (0.9 % Sodium Chloride Flush 3 Ml Syringe) 3 ml IVFLUSH QSHIFT [facility] Last Admin: 10/09/23 07:15 Dose: Not Given Zolpidem Tartrate (Zolpidem Tartrate 5 Mg Tablet) 5 mg PO BEDTIME PRN PRN Reason: Insomnia Home Medications ?Medication ?Instructions ?Recorded ?Confirmed ?Last Taken ?Type omega 8-hnx-qme-fish oil 1,200 mg 1 cap PO DAILY 12/10/21 10/09/23 10/08/23 History (144 mg-216 mg) capsule (Fish Oil) cetirizine 10 mg capsule (Zyrtec) 10 mg PO DAILY 10/09/23 10/09/23 10/08/23 History multivitamin 1 tab PO DAILY 10/09/23 10/09/23 10/08/23 History Exam Height,Weight and Vital Signs: Height 5 ft 9 in Weight 86.183 kg Last Vital Signs Temp 99.8 F 10/09/23 09:18 Pulse 59 10/09/23 09:18 Resp 18 10/09/23 09:18 BP 147/71 H 10/09/23 09:18 Pulse Ox 95 10/09/23 09:18 O2 Del Method Room Air 10/09/23 09:18 Pertinent Lab Results Pertinent Lab Results: Laboratory Tests 10/08/23 21:10 WBC 7.8 RBC 5.06 Hgb 14.9 Hct 41.6 L MCV 82.2 MCH 29.4 MCHC 35.8 RDW 12.4 Plt Count 227 MPV 11.0 Immature Gran % (Auto) 0.1 Neut % (Auto) 61.7 Lymph % (Auto) 28.0 [place] % (Auto) 6.9 Eos % (Auto) 2.3 Baso % (Auto) 1.0 Lymph # (Auto) 2.2 [place] # (Auto) 0.5 Eos # (Auto) 0.2 Baso # (Auto) 0.1 Abs Immat Gran (auto) 0.01 Absolute Neuts (auto) 4.8 Absolute Nucleated RBC 0.000 Nucleated RBC % (auto) 0.0 PT 11.7 INR 1.0 Sodium 142 Potassium 3.7 Chloride 109 H Carbon Dioxide 19 L Anion Gap 18 BUN 14 Creatinine 1.26 Estim Creat Clear Calc 65.2 Estimated GFR 58 Random Glucose 163 H Calcium 9.4 Total Bilirubin 0.5 AST 18 ALT 21 Alkaline Phosphatase 70 Troponin I High Sens < 2.7 Total Protein 7.4 Albumin 4.4 Lipase 49 Airway Mallampati Class: I TM Dist: >3cm Neck ROM: Full Loose/Missing/Broken Teeth: No Heart: rrr Lungs: cta Assessment and Plan Assessment Anesthesia Assessment: Anesthesia Plan Discussed and Chart Reviewed Final Anesthetic Review Family History of Problems with Anesthesia: No History of Problems with Anesthesia: No NPO: Yes ASA Class: I Final Preanesthetic Review: No Changes in Pt Med Stat, Meds/Allgs Chart Reviewed, Consent Obtained/Reviewed and Anes Risks/Benef Reviewed Patient Risk: Low Procedure Risk: Intermediate Anesthetic Plan Anesthetic Plan: GA Disposition: Standard PACU
--- NOTE | 2023-10-09 11:42 | W.PM.OPN ---
Operative Note Operative Note Date of Service: 10/09/23 Narrative: Preoperative diagnosis: Acute cholecystitis, cholelithiasis Postoperative diagnosis: Same Procedure: Laparoscopic cholecystectomy Surgeon: Raul Butler MD Peanut Vendor: None Anesthesia: General endotracheal Indications for procedure: 62-year-old male patient presenting with complaints of abdominal in the right upper quadrant and epigastrium found to have thickened gallbladder with multiple gallstones in the neck of the gallbladder consistent with acute cholecystitis. Operative findings: Acutely inflamed and obstructed gallbladder with dense adhesions from omentum consistent with prior cholecystitis. Multiple gallstones at the neck of the gallbladder. Specimen: gallbladder Estimated blood loss: 20 mL Complications: None Procedure details: Patient was brought to the OR and placed in a supine position. After administering general anesthesia the patient's abdomen was prepped with ChloraPrep and draped in a sterile fashion. A surgical time-out was called the consent confirmed. Patient received preoperative antibiotics and Venodyne boots were in place. Local anesthesia consisting of 0.5% Sensorcaine without epinephrine was infiltrated in a periumbilical region. A 5 mm incision was made above the umbilicus in a transverse fashion. The Veress needle was then inserted while elevating abdominal cavity with towel clips. After positive drop test the abdomen was insufflated to a pressure of 15 mm of mercury. The Veress needle was then removed and a 5 mm trocar inserted. The camera was inserted in the abdomen explored. A 12 mm trocar was then placed in the epigastrium. Two 5 mm trocars placed in the right upper quadrant by the therapeutic recreation assistant. The patient was placed in reverse Trendelenburg positioning and rotated to the left. Dense adhesions were taken down using electrocautery. An overriding cystic artery was noted at the neck of the gallbladder. This was dissected off of the neck of the gallbladder. The gallbladder was grasped with the fundus and retracted cephalad by the therapeutic recreation assistant. The infundibulum was then grasped and retracted away from the liver bed, also by the therapeutic recreation assistant. The Dolphin dissected was then used by the surgeon to dissect the peritoneum off the infundibulum to reveal the junction with the cystic duct. Cystic artery was noted slightly medial and posterior to the cystic duct as noted above. After obtaining a critical view the cystic duct was doubly clipped and divided. The cystic artery was then doubly clipped and divided. The gallbladder was then dissected off the liver bed using electrocautery with an L hook. Hemostasis was assured all times using the electrocautery. When the gallbladder is completely dissected off the liver bed was placed in an Endo-Catch bag and brought out through the epigastric incision. The gallbladder was sent to pathology for further examination. The abdomen was then re-examined. The liver bed was irrigated and suctioned dry. No bleeding or bile leak could be identified. CO2 was then evacuated and all trocars removed. Fascia was closed at the epigastric incision using a [id number] 0 Polysorb suture. Skin was closed in all incisions using a subcuticular 4 0 Polysorb suture by both the surgeon and therapeutic recreation assistant. Sterile dressings consisting of Steri-Strips, 2 x 2 gauze, and Tegaderm were then applied. The patient tolerated the procedure well. Sponge instrument and needle counts reported as correct. The patient was transferred to PACU in stable condition.
[2023-10-10] MEDS: Acetaminophen 1,000 MG/100 ML PIGGYBACK 400 MG IV (00:28)
[2023-10-10 00:58] VITALS: RESP 18
[2023-10-10 03:06] VITALS: BP 129/67; PULSE 56; RESP 16; TEMP 36.1; O2SAT 94
[2023-10-10] MEDS: Dextrose 5 % and Lactated Ring 1,000 ML 125 ML IVCONT (04:57)
[2023-10-10 07:37] VITALS: BP 138/67; PULSE 58; RESP 16; TEMP 36.2; O2SAT 94
--- NOTE | 2023-10-10 07:48 | P.PNGS_ITS ---
Subjective Subjective Date of Service: 10/10/23 Interval history: Patient feels improved. Denies nausea or vomiting. Was able to tolerate a diet yesterday. Physical Exam 2 Vital Signs: Vital Signs: Last Vital Signs Temp 97.1 F 10/10/23 07:37 Pulse 58 10/10/23 07:37 Resp 16 10/10/23 07:37 BP 138/67 10/10/23 07:37 Pulse Ox 94 10/10/23 07:37 O2 Del Method Room Air 10/10/23 07:37 O2 Flow Rate 2 10/09/23 12:23 BMI result Body Mass Index 29.5 Const: General: no acute distress Nutritional Appearance: well nourished Orientation/consciousness: patient oriented x3 Resp: Effort & Inspection: normal respiratory effort GI: Other: Soft, nondistended, wounds clean, dry, and intact without redness or discharge. Neuro: General: patient oriented x3 Extrem: Other: No edema Objective Data Active Medications Hydromorphone HCl (Hydromorphone Hcl 0.5 Mg/0.5 Ml Syringe) 0.5 mg IVPUSH Q3H PRN; Protocol PRN Reason: Pain, Severe (Pain Scale 7-10) Last Admin: 10/09/23 08:43 Dose: 0.5 mg Documented By: ISABELLA Dextrose/Lactated Ringer's (D5lr) 1,000 mls @ 125 mls/hr IVCONT .Q8H MARIANNE Last Admin: 10/10/23 04:57 Dose: 125 mls/hr Documented By: ADOLFO Ondansetron HCl (Ondansetron Hcl 4 Mg/2 Ml Vial) 4 mg IVPUSH QID PRN PRN Reason: Nausea Last Admin: 10/09/23 08:41 Dose: 4 mg Documented By: ISABELLA Oxycodone HCl (Oxycodone Hcl Immed Release 5 Mg Tablet) 5 mg PO Q6H PRN PRN Reason: Pain, Moderate(Pain Scale 4-6) Sodium Chloride (0.9 % Sodium Chloride Flush 3 Ml Syringe) 3 ml IVFLUSH QSHIFT MARIANNE Last Admin: 10/10/23 07:43 Dose: Not Given Documented By: URBAN Non-Admin Reason: IV Running Zolpidem Tartrate (Zolpidem Tartrate 5 Mg Tablet) 5 mg PO BEDTIME PRN PRN Reason: Insomnia Labs 10/08/23 21:10 10/08/23 21:10 Procedures Date of Service Date of Service: 10/10/23 Progress Note: A&P Assessment and plan (1) Acute cholecystitis: Status: Acute Plan 62-year-old male status post laparoscopic cholecystectomy pod 1. Patient tolerated the procedure well and his wounds are healing nicely. He was able to tolerate a regular diet without nausea or vomiting. He is ready for discharge to home. I recommended no lifting greater than 10 lb for 2 weeks. Should also avoid fatty/ fried foods for 1 month. I recommended follow-up in the office in 1 week for wound check. He is welcome to call sooner for any new concerns. Time Spent With Patient Time: Total time managing care of this patient today ____ minutes. Quality Stroke Does the patient have a stroke diagnosis?: No VTE Prior VTE?: No VTE Risk Level:: Surgical - moderate VTE Device Contraindication: N/A - Device Ordered VTE Drug Contraindication: Treatment Not Indicated
--- NOTE | 2023-10-10 09:20 | MHC.CM.PN ---
CM MET WITH PT AND SPOUSE AT BEDSIDE. PT IS INDEPENDENT AT BASELINE. +HCP AT PCP OFFICE. PCP DR. MELODY GODINEZ DP: PT HAS BEEN MEDICALLY CLEARED FOR DC HOME, NO SERVICES. SPOUSE WILL TRANSPORT
--- NOTE | 2023-10-10 14:32 | HO.POSTANES ---
Post Anesthesia Evaluation Post Anesthesia Evaluation Date of Service: 10/10/23 Vital Signs: Vital Signs Temp Pulse Resp BP Pulse Ox O2 Del Method 10/10/23 07:37 97.1 F 58 16 138/67 94 Room Air 10/10/23 03:06 97 F 56 16 129/67 94 Room Air Anesthesia: General Endotracheal-GETA Mental Status: Awake Pain Control: Satisfactory Nausea/Vomiting: None Hydration: Adequate Anesthesia-Related Issues: No Anes. Related Issues
--- NOTE | 2023-10-13 09:30 | PM.DS ---
DS: Providers Provider Date of Service: 10/13/23 Date of admission: 10/09/23 05:29 Date of discharge: 10/10/23 Primary care physician: Rory Tamez MD Admitting clinician: Raul Butler Discharging clinician: Raul Butler DS: Diagnosis Discharge Diagnosis (1) Acute cholecystitis: Status: Acute DS: Summary Hospital Course Hospital Course: Ross Barber is a 62 year old male presenting with complaints of abdominal pain in the lower abdomen extending into the back beginningon 10/08/2023 at 17:00 after eating dinner. He reported an approximally three-month history of intermittent abdominal pain of short duration which persisted despite changing in diet. Current episode was the most severe and associated with nausea and vomiting. He subsequently presented to the emergency department for further evaluation. Workup revealed normal WBC and LFTs however CT abdomen pelvis and ultrasound revealed gallstones within the gallbladder in the neck of the gallbladder. There was also wall thickening and a sonographic Dia sign. Findings are suggestive of acute cholecystitis. He has admitted to the surgical service for further management. He was made NPO and scheduled for a laparoscopic or possible open cholecystectomy. He subsequently underwent a laparoscopic cholecystectomy which was performed on 10/09/2023. Operative findings were consistent with acute cholecystitis due to cholelithiasis. He tolerated the procedure well and was started on a regular low-fat diet postoperatively. By postoperative day 1, he was tolerating regular diet and comfortable on oral pain medications. He was able to ambulate independently and felt radiation for discharge to home. He is discharged to home on 10/10/2023. Discharge instructions were to avoid fatty/fried foods for 1 month. He should avoid lifting greater than 10 lb for 2 weeks following the surgery. I have asked him to call the office for follow-up appointment in approximately 1 week for wound check. He is welcome to call sooner for any new concerns. Time spent discussing smoking cessation with patient: 3 to 10 minutes Status at Discharge Functional status at discharge: independent ambulation Overall status at discharge: patient is back to baseline Time Attestation Total time managing care of this patient today: 20 mintues. Discharge Coordination Time (in mins): 20 Quality: Safe Use of Opioids Does Pt have an Active Cancer Diagnosis on the Problem List?: No Quality: Stroke Does the patient have a stroke diagnosis?: No Physical Exam Vital Signs: Vital Signs: Last Vital Signs Temp 97.1 F 10/10/23 07:37 Pulse 58 10/10/23 07:37 Resp 16 10/10/23 07:37 BP 138/67 10/10/23 07:37 Pulse Ox 94 10/10/23 07:37 O2 Del Method Room Air 10/10/23 07:37 O2 Flow Rate 2 10/09/23 12:23 BMI result Body Mass Index 29.5 Const: General: no acute distress Nutritional Appearance: well nourished Orientation/consciousness: patient oriented x3 Resp: Effort & Inspection: normal respiratory effort GI: Other: Soft, nondistended, wounds clean, dry, and intact without redness or discharge. Neuro: General: patient oriented x3 Extrem: Other: No edema DS: Data Data Completed and Pending Completed studies during hospitalization [Text1]: Pending at discharge 10/09/23 11:12 Surgical [PTH] Routine Discharge Plan Discharge Anticipated Discharge Date/Time: 10/10/23 07:40 Patient Disposition: Home, Self-Care Discharge Diagnosis: Acute cholecystitis, cholelithiasis Referrals: Rory Tamez MD [Primary Care Provider] - 1 Week Raul Butler MD [Physician] - 1 Week Discharge Medications: New oxycodone 5 mg tablet 5 mg PO Q6H PRN (Reason: pain (scale score 7-10)) Qty: 15 0RF Rx Instructions: Partial Fill upon patient request. Continued omega 0-fgj-tnc-fish oil [Fish Oil] 1,200 (144-216) mg Capsule 1 cap PO DAILY multivitamin Tablet 1 tab PO DAILY Zyrtec 10 mg Capsule 10 mg PO DAILY Discharge Orders: Discharge Order (Routine); Ordered 10/10/23 Ordered By: Raul Butler Diet: Low fat, low cholesterol Activity on Discharge: No heavy lifting Stand Alone Forms: Patient Portal Discharge page Print Language: Latvian Activity Restrictions/Additional Instructions: No lifting > 10 pounds for 2 weeks Stay on low fat diet for 1 month No driving for one week Ice to the incision x 24 hours After 24 hours, use warm compress or heating pad on low as needed Take Tylenol Extra-strength 1-2 tabs every 6 hours as needed Oxycodone every 6-8 hours as needed for pain Colace 100 mg every day as needed for constipation Remove dressing in 3 days Follow up in office in one week (call office at [phone] for appointment). Care Plan Goals: Return to normal diet and activity Health Concerns: abdominal pain, upper abdomen Plan of Treatment: Laparoscopic cholecystectomy performed on 10/09/2023 Assessment: Acute cholecystitis due to cholelithiasis Discharge Date/Time: 10/10/23 09:59
== END 2023-10-10 09:59 | disposition home or self-care (01) | DRG 263 ==
LOC: HO.ED 10-09 05:06 → HO.EDOVER 10-09 05:31 → HO.S3 10-09 12:36
PROVIDERS: Registered Nurse Emergency; Admitting Provider Surgery; Emergency Provider Emergency Medicine Emergency Medical Services; PCP Internal Medicine; Visit Provider Surgery
PROC: 0FT44ZZ Resection of Gallbladder, Percutaneous Endoscopic Approach (ICD-10-PCS; CPT 47562; principal; 2023-10-09 10:00)
DX: K80.00 Calculus of gallbladder with acute cholecystitis without obstruction (principal); Z79.899 Other long term (current) drug therapy; Z87.891 Personal history of nicotine dependence
CPT/HCPCS: 36415; 71045; 74177; 76705; 80053; 83690; 84484; 85025; 85610; 88304; 93005; 99285; J0131; J0696; J1170; J2250; J2405; J2704; J2765; J2795; J3010; Q9967

== ENCOUNTER → 2023-10-08 20:55 | Outpatient (BNV) | payer OTHER, SELFPAY | PROVIDERS: Admitting Provider Surgery; Emergency Provider Emergency Medicine Emergency Medical Services; PCP Internal Medicine; Visit Provider Internal Medicine Cardiovascular Disease | DX: R07.9 Chest pain, unspecified (principal) | CPT/HCPCS: 93010 ==

== ENCOUNTER → 2023-10-09 05:29 | Outpatient (BNV) | payer OTHER, SELFPAY | PROVIDERS: Admitting Provider Surgery; Emergency Provider Emergency Medicine Emergency Medical Services; PCP Internal Medicine; Visit Provider Surgery | DX: K81.0 Acute cholecystitis (principal) | CPT/HCPCS: 47562; 99024; 99222 ==

== ENCOUNTER 2023-10-21 12:49 | Outpatient (AMB) | payer OTHER, SELFPAY ==
--- NOTE | 2023-10-21 13:09 | MHC.OFFVIS ---
Vital Signs 10/21/23 13:10 Height 5 ft 9 in Weight 192 lb 8 oz BMI 28.4 BP 130/75 Blood Pressure Location Lt brachial Position Sitting Pulse 69 Intake Visit Reasons: s/p lap cholecystectomy Intake Note: Patient is seen in office for post op assessment post laparoscopic cholecystectomy. Pt c/o: denies any concerns at the time of visit Op: 10/09/23 Torque Tester Required: No Accompanied by: Self / Same As Patient Allergies ENVIRONMENTAL Allergy (Intermediate, Uncoded 10/21/23 13:11) HAYFEVER HPI Comments Details: 62-year-old male patient status post laparoscopic cholecystectomy approximately 2 weeks ago for acute cholecystitis. He was found to have acutely inflamed gallbladder with gallstones in the neck of the gallbladder. He tolerated the procedure well and now feels much improved. He denies any abdominal pain, nausea or vomiting. His bowels are normal without diarrhea or constipation. [facility] Medical History Acute cholecystitis Seasonal allergies Surgical History Hx laparoscopic cholecystectomy (10/09/23) Hx of left inguinal hernia repair Hx of right inguinal hernia repair H/O colonoscopy Social History Household Members: Spouse Housing: House Are you a primary career development specialist to a significant other at home: No Do you presently have visiting nurse or other home services: No Patient Tobacco Use Status: Former Tobacco user Tobacco use type: Cigarette Second Hand Smoke Exposure: No service: No Physical Exam Vital Signs: Last Vital Signs Pulse 69 10/21/23 13:10 BP 130/75 10/21/23 13:10 BMI result Body Mass Index 28.4 Const General: no acute distress Nutritional Appearance: well nourished Orientation/consciousness: patient oriented x3 Resp Effort & Inspection: normal respiratory effort GI Other: Well-healed trocar incisions Inspection: Yes normal to inspection Palpation (GI): Soft to palpation, nontender, no guarding and not rigid Neuro General: patient oriented x3 Assessment & Plan Assessment & Plan (1) Acute cholecystitis: Code(s): K81.0 - Acute cholecystitis Category: Medical Plan Patient returns following laparoscopic cholecystectomy for acute cholecystitis. He is much improved with his wounds are healing nicely. He may resume normal activity without restrictions and should follow up as needed. Coding Level of Care Code Global (34469) Diagnoses Acute cholecystitis K81.0
[2023-10-21 13:10] VITALS: BP 130/75; PULSE 69; BMI 28.4
== END 2023-10-21 13:23 | disposition home or self-care (01) ==
PROVIDERS: PCP Internal Medicine; Visit Provider Surgery
DX: K81.0 Acute cholecystitis (principal)
CPT/HCPCS: 99024

== ENCOUNTER → 2023-10-21 12:49 | Outpatient (BNVA) | payer OTHER, SELFPAY | PROVIDERS: PCP Internal Medicine; Visit Provider Surgery | DX: Z09 Encounter for follow-up examination after completed treatment for conditions other than malignant neoplasm (principal); Z90.49 Acquired absence of other specified parts of digestive tract | CPT/HCPCS: 99212 ==

== ENCOUNTER 2024-01-19 10:44 | Outpatient (REF) | payer OTHER, SELFPAY ==
[2024-01-19 11:25] LABS: Cholesterol 231 mg/dL (<200); HDL Cholesterol 56 mg/dL (>40); LDL Cholesterol Calculated 156 mg/dL (<100); Triglycerides 98 mg/dL (<150)
== END 2024-01-19 10:45 | disposition home or self-care (01) ==
LOC: HO.LNP 10:44
PROVIDERS: Visit Provider Internal Medicine
DX: E78.00 Pure hypercholesterolemia, unspecified (principal)
CPT/HCPCS: 80061

== ENCOUNTER → 2024-03-26 13:50 | Outpatient (REF) | payer OTHER, SELFPAY ==
--- NOTE | 2024-03-26 13:53 | CA_ITS ---
Transthoracic Echocardiogram Patient (Last, First, Middle): Ross Barber, Gender: Male Date of : 1960 Age: 63 Procedure Date: 03/26/2024 Procedure Type: Transthoracic Echocardiogram Location: OP Height: 175.26 cm Weight: 85.73 kg BSA: 2.02 m2 Heart Rate: 61 bpm BP: 130 / 72 mmHg Continuous Improvement Facilitator: SAPNA Referring MD: Rory Tamez MD Medical Sales Associate: Enrrique Murphy MD Symptoms: G45.3 AMAUROSIS FUGAX Study Quality: Adequate w contrast ECG Rhythm: Sinus Conclusions: - 1. Normal LV ejection fraction of 65-70% 2. Mild aortic regurgitation noted 3. No gross pericardial effusion Findings Procedure Information Contrast agent, definity, is being given per protocol without apparent complications. The quality of the study was technically difficult. The study quality is limited by lung artifact. Left Ventricle Normal left ventricular size, thickness, and systolic function. The visually estimated ejection fraction is between 65-70%. Spectral Doppler is indicative of a normal filling pattern. Right Ventricle Normal right ventricular cavity size and systolic function. Atria Both atria are normal in size. There is no evidence of interatrial shunt by color Doppler and contrast. Aortic Valve Normal aortic valve structure and function. There is no aortic valve stenosis. There is mild aortic valve regurgitation. Mitral Valve Normal mitral valve structure and function. There is trace mitral valve regurgitation. There is no mitral valve stenosis. Pulmonic Valve The pulmonic valve is likely normal. Tricuspid Valve Likely normal tricuspid valve structure and function. Tricuspid regurgitation envelope is inadequate for calculation of right ventricular systolic pressure. Normal right atrial pressure. Great Vessels All visible segments of the aorta are normal in size. The pulmonary artery was not well visualized. There is no dilatation of the ascending aorta measuring 3.30 cm. Venous The inferior vena cava is normal in size and collapses greater than 50% with inspiration. Pericardium/Pleural There is no evidence of pericardial effusion. a large radiolucent structure seen in the liver suggestive of assist. Consider dedicated imaging Prior Study Comparison No prior study available for comparison. Measurements 2D Linear Measurements IVSd: 1.00 0.6-0.9/0.6-1.0 cm LVIDd: 5.58 3.9-5.3/4.2-5.9 cm LVIDd Index: 2.76 2.4-3.2/2.2-3.1 cm/m2 LVIDs: 3.99 2.0-3.6 cm LVPWd: 0.81 0.7-1.1 cm LA Diam: 3.80 2.7-3.8/3.0-4.0 cm LAIDs Index: 1.88 1.5-2.3 cm/m2 LV Mass: 238.87 67-162/88-224 g LV Mass Index: 118.25 43-95/49-115 g/m2 LVOT Diam: 2.20 3.0+(-)1.3 cm 2D Systolic Function EF 4C: 63.80 >55% EF 2C: 75.20 >55% EF BiP: 70.10 >55% Mitral Valve MV Pk E: 0.81 MV PK A: 0.90 MV Decel Time: 225.00 E/A: 0.90 E'Lateral: 7.40 E'Medial: 6.96 E/E' Med: 11.60 E/E' Lat: 10.90 PHT: 66.00 MVA PHT: 3.33 Decel Lassen: 3.57 Aortic Valve AoV Pk Gareth: 1.64 AoV Mn Gareth: 1.10 AoV VTI: 0.36 AoV Pk Grad: 11.00 Aov Mn Grad: 6.00 ARIANA Cont.VTI: 2.54 AI Pk Gareth: 4.57 AI Lassen: 2.53 LVOT LVOT Pk Gareth: 1.17 LVOT Mn Gareth: 0.78 LVOT VTI: 0.24 LVOT Pk Grad: 5.00 LVOT Mn Grad: 3.00 LVOT Diam: 2.20 LVOT Area: 3.80 Diastolic Function MV Pk E: 0.81 MV Pk A: 0.90 E/A: 0.90 E'Medial: 6.96 E/E' Med: 11.60 E' Laterial: 7.40 E/E' Lat: 10.90 Right Ventricle TAPSE (mm): 17.30 TVS' Gareth: 9.14 Tricuspid Valve RA Press: 3.00 Great Vessels Aorta Sinus of Valsalva: 3.00 2.0-3.5 cm Ao Asc: 3.30 2.1-3.4 cm Pulmonary Valve PV Pk Gareth: 0.91 Peak PV Grad: 3.00 Updated in Other Vendor System with Status of Final Enrrique Murphy MD electronically signed on 03/26/2024 4:12:24 PM with status of Final
== END ==
LOC: HO.CARD 13:50
PROVIDERS: PCP Internal Medicine; Visit Provider Internal Medicine
DX: G45.3 Amaurosis fugax (principal)
CPT/HCPCS: 93306; Q9957

== ENCOUNTER → 2024-03-26 13:53 | Outpatient (BNV) | payer OTHER, SELFPAY | PROVIDERS: PCP Internal Medicine; Visit Provider Internal Medicine Cardiovascular Disease | DX: I35.1 Nonrheumatic aortic (valve) insufficiency (principal); G45.3 Amaurosis fugax | CPT/HCPCS: 93306 ==

== ENCOUNTER 2024-07-16 10:39 | Outpatient (REF) | payer OTHER, SELFPAY ==
[2024-07-16 10:42] LABS: MANUAL DIFF FLAG NO
[2024-07-16 11:11] LABS: Basophils Absolute Auto 0.1 X10*3/uL (0.0-0.2); Eosinophils Absolute Auto 0.2 X10*3/uL (0.0-0.4); Eosinophils Percent Auto 2.9 % (0-4); Hematocrit 43.4 % (42.0-52.0); Hemoglobin 14.9 g/dl (14.0-18.0); Lymphocytes Absolute Auto 1.6 X10*3/uL (1.2-4.9); Lymphocytes Percent Auto 31.1 % (20-40); Mean Corpuscular HGB Conc 34.3 g/dl (31.0-36.0); Mean Corpuscular Hemoglobin 28.9 pg (27.0-33.0); Mean Corpuscular Volume 84.1 fL (80.0-98.0); Mean Platelet Volume 11.6 fL (9.4-12.4); Monocytes Absolute Auto 0.6 X10*3/uL (0.1-1.2); Monocytes Percent Auto 11.1 % (2-11); Neutrophils Absolute Auto 2.8 x10*3/uL (2.0-8.3); Neutrophils Percent Auto 53.9 % (45-73); Platelet Count 214 X10*3/uL (160-400); Red Blood Count 5.16 X10*6/uL (4.60-5.80); White Blood Count 5.1 X10*3/uL (4.8-10.8)
[2024-07-16 11:14] LABS: Appearance Urine Clear; Color Urine Yellow; Glucose Urine UA Negative (Negative); Leukocyte Esterase Urine Negative (Negative); Nitrite Urine Negative (Negative); PH 6.5 (5.0-9.0); Specific Gravity - Urine 1.015 (1.005-1.025); Urine Blood Negative (Negative); Urine Ketones Negative (Negative); Urine Protein Negative (Neg-Trace)
[2024-07-16 11:20] LABS: Bacteria Urine None Seen (None Seen); Hyaline Casts Urine 0-2 /LPF (0-2); RBC Urine 0-2 /HPF (0-2); Squamous Epithelial Cell Urine 0-2 /HPF (0-2); WBC Urine 0-5 /HPF (0-5)
[2024-07-16 11:34] LABS: Alanine Aminotransferase 32 U/L (0-40); Alkaline Phosphatase 67 U/L (39-117); Anion Gap 10 (12-20); Aspartate Amino Transferase 27 U/L (5-37); Bilirubin Total 0.8 mg/dL (0.0-1.0); Blood Urea Nitrogen 15 mg/dL (9-16); Calcium 8.8 mg/dL (8.4-10.2); Carbon Dioxide 25 mmol/L (22-29); Chloride 107 mmol/L (96-108); Cholesterol 211 mg/dL (<200); Estimated Glomerular Filt Rate > 60; Glucose Fasting 90 mg/dL (60-99); HDL Cholesterol 55 mg/dL (>40); LDL Cholesterol Calculated 143 mg/dL (<100); Potassium 4.2 mmol/L (3.3-5.1); Sodium 138 mmol/L (135-145); Total Protein 7.4 g/dL (6.5-8.0); Triglycerides 68 mg/dL (<150)
[2024-07-16 11:49] LABS: PSA,Total (Free>4and<10) 1.08 ng/mL (0.00-4.00)
--- OUTSIDE RECORDS SUMMARY | 2024-07-16 12:13 | XMS_ITS | Patient Health Record ---
Author Organization Rory Tamez MD Address [address] [place], [place] [phone] Care Team Providers Care Research Statistician Name Role Phone Rory Tamez Primary Care Provider Allergies No Known Allergies Results Component Value Reference Range Notes Occult Blood, Stool, Guaiac Reviewed date:07/18/2023 11:26:55 AM Interpretation:Negative Performing Lab: Notes/Report: Negative Occult Blood, Stool, Guaiac Neg Pathology Reviewed date:10/13/2023 12:40:13 PM Interpretation: Performing Lab:[facility], [address] [place] [phone] Notes/Report: --- Name: Ross Barber Age/Sex: 62/M : 1960 Unit#: [id number] Attend Dr: Raul Butler MD Re10/09/23 Status : DIS IN Location: [facility] 372-1 Disch: 10/10/23 --- SPEC : [id number] RECD : 10/09/23-9 STATUS: GELY LO NUM: [id number] DORA: 10/09/23-1112 [facility] DR: Raul Butler MD ENTERED: 10/09/23-12 33 SP TYPE: Surgical OTHR DR: Rory Tamez MD ORDERED: Gross Micro L3 Diagnosis Gallbladder, cholecystectomy: Acute cholecystitis with cholesterolosis and cholelithiasis. Clinical History Acute cholecystitis Microscopic Description Microscopic sections reviewed. Material Received Gallbladder Gross Description Received in formalin labeled ?gallbladder? is a previously incised, smooth and shaggy, congested, castaneda-pink and pink-purple gallbladder measuring 8.5 x 2.5 x 1.2 cm, resected in continuity with 0.4 cm of clipped yet patent cystic duct with an attached hemostat clip. Upon opening the gallbladder contains 3 moruloid, hard, yet, friable yellow-green choleliths lodged within the ne ck of the gallbladder immediately proximal to the margin of resection of the cystic duct. The mucosa is finely reticulated, velvety, diffusely congested and hemorrhagic red-ralf on with multiple diffuse opaque white-yellow superficial mucosal flecks giving the mucosa a ?strawberry appearance. On sectioning the wall is edematous, congested and hemorrhagic, pink-maroon and measures up to 0.25 cm in thickness. Animal Ride Attendant sections are submitt ed in a cassette labeled A1 to include the margin of resection of the cystic duct. CEDS Copies To: Rory Tamez MD [address] [id number] Raul Butler MD [address] [place] [address]. [place], [place] [address] CONTINUED ON NEXT PAGE --- Name: Ross Barber Age/Sex: 62/M : 1960 Unit#: [id number] Attend Dr: Raul Butler MD Re10/09/23 Status : DIS IN Location: [facility] 372-1 Disch: 10/10/23 --- SPEC : [id number] RECD : 10/09/23-1229 STATUS: GELY LO NUM: [id number] DORA: 10/09/23-[address] [facility] [address]: Ralu Butler MD ENTERED: 10/09/23-12 33 SP TYPE: Surgical OTHR DR: Rory Tamez MD ORDERED: Jasmyn Micro L3 --- Signed (signature on file) Bettina Brunswick 10/11/23 8649 --- END OF REPORT Lipid Panel Reviewed date:01/19/2024 12:43:42 PM Interpretation: Performing Lab:[facility], [address] [place] [phone] Notes/Report: Triglycerides 98 <150 mg/dL Desirable Triglyceride: less than 150 mg/dL Borderline High Triglyceride 150-199 mg/dL High Triglyceride: 200-499 mg/dL Very High Triglyceride: greater than or equal to 5OO mg/dL Cholesterol 231 <200 mg/dL Desirable Cholesterol: less than 200 mg/dL Borderline High Cholesterol: 200-239 mg/dL High Cholesterol: greater than 239 mg/dL LDL Cholesterol Calculated 156 <100 mg/dL Desirable LDL: less than 100 mg/dL Near Optimal/Above Optimal LDL: 110-129 mg/dL Borderline High LDL: 130-159 mg/dL High LDL: 160-189 mg/dL Very High LDL: greater than or equal to 190 mg/dL HDL Cholesterol 56 >40 mg/dL Desirable HDL: greater than 40 mg/dL Note: This HDL assay may give artificially low results in patients with liver disease. Complete Blood Count Auto Di ff (Not yet reviewed by provider) Interpretation: Performing Lab:[facility], [address] [place] [phone] Notes/Report: White Blood Count 5.1 4.8-10.8 X10*3/uL [...] NRBC Abs Auto 0.000 0.0-0.012 X10*3/uL Comprehensive [place]. Panel Fa st (Not yet reviewed by provider) Interpretation: Performing Lab:[facility], [address] [place] [phone] Notes/Report: Sodium 138 135-145 mmol/L Potassium 4.2 [...] Alkaline Phosphatase 67 39-117 U/L Lipid Panel (Not yet reviewe d by provider) Interpretation: Performing Lab:[facility], [address] [place] [phone] Notes/Report: Triglycerides 68 <150 mg/dL Desirable Triglyceride: [...] in patients with liver disease. PSA,Total (Free>4and<10) (No t yet reviewed by provider) Interpretation: Performing Lab:[facility], [address] [place] [phone] Notes/Report: PSA,Total (Free>4and<10) 1.08 0.00-4.00 ng/mL A [...] Immunoassay (CMIA) UA ClnCatch+Micro w/rflx Cul t (Not yet reviewed by provider) Interpretation: Performing Lab:[facility], [address] [place] [phone] Notes/Report: Urine, Clean Catch Color Urine Yellow Appearance Urine Clear PH 6.5 5.0-9.0 Glucose Urine UA Negative Negative mg/dL Urine Blood Negative Negative Specific [place] - Urine 1.015 1.005-1.025 Urine Protein Negative Neg-Trace mg/dL Urine Ketones Negative Negative mg/dL Nitrite Urine Negative Negative Leukocyte Esterase Urine Negative Negative RBC Urine 0-2 0-2 /HPF WBC Urine 0-5 0-5 /HPF Squamous Epithelial Cell Urine 0-2 0-2 /HPF Bacteria Urine None Seen None Seen Hyaline Casts Urine 0-2 0-2 /LPF Reason For Referral Reason VISION LOSS Diagnosis 1 Vision loss (H54.7) Referral Organization Rory Tamez MD Referring Provider First Name Rory Referring Provider Last Name Joi Referring Provider Speciality Internal M edicine Referred Provider Enrrique Murphy Referred Provider Specialty Cardiovascul ar Disease General Notes Elicia Miranda 05/27/2024 11:24:43 AM >THE REFERRAL HAS BEEN FAXED TO [facility] [place] [place] [facility], Elicia Miranda 07/09/2024 01:09:35 PM >patient has been scheduled for 09/23/24 at 10am , he has been informed Referral Priority Routine Referral Appointment Date 09/23/2024 Medications Medication SIG (Take, Route, Fr equency, Duration) Notes Start Date End Date Status Fish Oil 1000 MG 1 capsule Orally Once a day Active Claritin 10 MG 1 tablet Orally Once a day Active Aspirin 81 81 MG 1 tablet Orally Once a day Active Immunizations Vaccine Route Administration Date Status Comme nts Tetanus Unknown 02/23/2018 Administered SARS-COV-2 Moderna Unknown 08/13/2020 Administered SARS-COV-2 Moderna Unknown 09/10/2020 Administered Flu Vaccine Unknown 01/23/2015 Refused Flu Vaccine Unknown 01/30/2016 Refused Fluarix Quadrivalent Unknown 02/04/2017 Refused Fluarix Quadrivalent Unknown 02/16/2018 Refused Shingrix Unknown 02/23/2018 Refused TDaP Unknown 02/23/2018 Refused Fluarix Quadrivalent Unknown 02/23/2019 Refused Shingrix Unknown 03/04/2019 Refused Fluarix Quadrivalent Unknown 03/07/2020 Refused Prevnar 13 Unknown 03/13/2020 Refused Fluarix Quadrivalent Unknown 05/17/2021 Refused Fluarix Quadrivalent Unknown 01/20/2023 Refused Fluarix Quadrivalent - 150 Unknown 03/04/2024 Refused Social History Tobacco Use: Social History Observation Description Date Details (start date - stop date) Former Smoker NA - NA Tobacco Use/Smoking Question Answer Notes Patient is a former smoker How long has it been since y ou last smoked? 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 Problem Essential hypertension (08777015) Essential (primary) hypertension (I10) Active confirmed Problem 162024614 Tubular adenoma of colon (D12.6) Active confirmed Problem 444205839 Vision loss (H54.7) Active confirmed Problem High cholesterol (43338095) High cholesterol (E78.00) Active confirmed Problem 65761019 Hepatic cyst (K76.89) Active confirmed Problem 81887858326654 Lesion of tonsil (J35.9) Active confirmed Vital Signs Blood pressure diastolic 80 mm Hg 05/27/2024 Height 69.5 in 05/27/2024 Blood pressure systolic 128 mm Hg 05/27/2024 Weight 200 lbs 05/27/2024 BMI 29.11 kg/m2 05/27/2024 Encounters Encounter Location Date Provider Diagnosis Rory Tamez MD [address] [place] [id number] 01/19/2024 Rory Tamez High cholesterol E78.00 Rory Tamez MD [address] [place] [id number] 07/16/2024 Rory Tamez Blood tests for routine general physical examination Z00.00 ; Essential (primary) hypertension I10 and High cholesterol E78.00 Rory Tamez MD [address] [place] [id number] 07/18/2023 Rory Tamez High cholesterol E78.00 ; Annual physical exam Z00.00 ; Essential (primary) hypertension I10 ; Colon cancer screening Z12.11 and Depression screening Z13.31 Rory Tamez MD [address] [place] [id number] 03/04/2024 Rory Tamez Amaurosis fugax G45. 3 Rory Tamez MD [address] [place] [id number] 03/29/2024 Rory Tamez Hepatic cyst K76.89 and Vision loss H54.7 Rory Tamez MD [address] [place] [id number] 05/27/2024 Rory Tamez Vision loss H54.7 Rory Tamez MD [address] [place] [id number] 10/13/2023 Rory Tamez MD [address] [place] [id number] 03/11/2024 Rory Tamez Foreign body sensation, bilateral eyes H57.8A3 Assessments Encounter Date Diagnosis (ICD Code) Assessment Notes Treatment Notes Treatment Clinical Notes Section Notes 01/19/2024 High cholesterol (ICD-10 - E78.00) 07/16/2024 Blood tests for routine general physical examination (ICD-10 - Z00.00) 07/18/2023 High cholesterol (ICD-10 - E78.00) going to diet and recheck in 6 mo 07/18/2023 Annual physical exam (ICD-10 - Z00.00) labs reviewed and discussed with patient 03/04/2024 Amaurosis fugax (ICD-10 - G45.3) aspirin 81 mg daily MRA order faxed to [facility] / Echo order faxed to [facility] [place] [place] [facility] dept, pending diagnostic testing 03/29/2024 Hepatic cyst (ICD-10 - K76.89) there [...] echo for him to take to ophthalmonogist 05/27/2024 Vision loss (ICD-10 - H54.7) has had 2 episodes of this. sounds like a tia. never had a headache with it so am still concerned of embolic. will refer to dr murphy 07/16/2024 Essential (primary) hypertension (ICD-10 - I10) 07/18/2023 Essential (primary) hypertension (ICD-10 - I10) doing well on no meds, will continue to monitor 03/11/2024 Foreign body sensation, bilateral eyes (ICD-10 - H57.8A3) order faxed tp [facility] 07/16/2024 High cholesterol (ICD-10 - E78.00) 07/18/2023 Colon cancer screening (ICD-10 - Z12.11) guaiac negative 07/18/2023 Depression screening (ICD-10 - Z13.31) negative screen Plan Of Treatment Pending Test Test Name Order Date Electrocardiogram (EKG) 02/13/2017 Electrocardiogram (EKG) 03/04/2019 MRA BRAIN NO CONTRAST 03/04/2024 XR ORBITS FOR FOREIGN BODY 03/11/2024 ECHO 03/04/2024 Complete Blood Count Auto Diff Comprehensive [place]. Panel Fast 5 Lipid Panel 07/16/2024 PSA,Total (Free>4and<10) 07/16/2024 US abdomen limited 03/29/2024 UA ClnCatch+Micro w/rflx Cult 07/16/2024 Next Appt Details Provider Name:Rory Arias ier, 07/23/2024 08:00:00 AM, [address], [address], [place], [place], [phone], Insurance Providers Payer Name Payer Address Payer Phone Subscriber Number Group Number Insured Name Patient Relationship to Insured Coverage Start Date Coverage End Date [facility] Direct [address] [place] [address] [id number] ROSS BARBER Self - patient is the insured Medical (General) History Medical History History ICD Code colonoscopy done 08/07/15 w/Dr Kay Bennett - repeat either 5yrs due (2020); Colonoscopy 12/17/21 due 5yr( 2026) Surgical History Surgery Date(Month/Year) Repair Rt Inguinal Hernia w/Mesh 05/2017
--- OUTSIDE RECORDS SUMMARY | 2024-07-16 12:13 | XMS_ITS ---
Author Organization Rory Tamez MD Address [address] [place] [phone] Care Team Providers Care Clinical Research Nurse Coordinator Name Role Phone Rory Tamez Primary Care [...] Problem Status W/U Status Risk Notes Problem 65475591 Hepatic cyst (K76.89) Active confirmed Problem 271701484 Vision loss (H54.7) Active confirmed Vital Signs Blood pressure systolic 124 mm Hg 03/29/20 24 Blood pressure diastolic 78 mm Hg 024 Height 69.5 in 03/29/2024 Weight 198 lbs 03/29/2024 BMI 28.82 kg/m2 03/29/2024 Encounters Encounter Location Date Provider Diagnosis Rory Tamez MD [address] [place] [phone] 03/29/2024 Rory Tamez Hepatic cyst K76.89 and [...] Follow Up: 2 Months, Reason: Provider Name:Rory Arias ier, 07/23/2024 08:00:00 AM, [address] [place] [address], [address], [phone], Progress Notes * ALYSSA HILL RDOB: [birth year] (63 yo M)Acc No.[id number]:03/29/2024 Progress Notes Patient:?ALYSSA HILL Provider:?Rory Tamez MD :1960???Age:63 Y???Sex:Male Jamal e:03/29/2024 Address:[address] [place] [address] Subjective: * Chief Complaints: * ???4 week * HPI: ???Symptom(s):? patient is a 63 yo male here for 4 week follow up visit. * ROS:?General/Constitutional:?Denies?Chills.?Denies?Fatigue.?Denies?Fever.?Denies?Headache.?ENT:?Patient denies?decreased sense of smell , any loss of taste , sore throat.?Respiratory:?Denies?Cough.?Denies?Shortness of breath at rest.?Denies?Shortness of breath with exertion.?Gastrointestinal:?Denies?Diarrhea.?Denies?Nausea.?Musculoskeletal:?Patient denies?muscle aches.?Peripheral Vascular:?Patient denies?red and blue toes.? * Medical History:? * Surgical History:? * Hospitalization/Major Diagno stic Procedure:? * Medications:?TakingClaritin 10 MG Tablet 1 tablet Orally Once a dayFish Oil 1000 MG Capsule Delayed Release 1 capsule Orally Once a dayTaking Claritin 10 MG Tablet 1 tablet Orally Once a dayTaking Fish Oil 1000 MG Capsule Delayed Release 1 capsule Orally Once a day * Allergies:?N.K.D.A.yes[Aller gies Verified] Objective: * Vitals:?Ht: 69.5, Wt:198, BM I:28.82, BP:124/78, Wt-k.81. * Examination: ???General Examination: ?GENERAL APPEARANCE:?alert, well hydrated, in no distress.?SKIN:?good turgor.?HEART:?no murmurs, rubs, gallops , regular rate and rhythm.?LUNGS:?no wheezes, rales, rhonchi , good air movement , clear to auscultation bilaterally.? Assessment: * Assessment: 1.?Hepatic cyst - K76.89 (Pr imary)?2.?Vision loss - H54.7? Plan: * Treatment: 2.?Vision loss? Notes: has had this few. times and lasted only one minute has had this in last few weeks. discussed results of recent testing with patient, had negative echo and mra so doesn't sound emboloic. make copy of the mra and echo for him to take to ophthalmonogist?? * Procedure Codes:? * Follow Up:?2 Months * * Sign off status: Completed true * Provider:?Rory Tamez MD Date:?05/29/2023 Generated for Giuliana salcedo/Ally/eTransmitting on:?07/16/2024 12:13 PM EDT History and Physical Notes * [...]
--- OUTSIDE RECORDS SUMMARY | 2024-07-16 12:13 | XMS_ITS | Patient Health Record ---
Author Organization [facility] Address [address] [place] [address] Care Team Providers Care Technical Instructor Course Developer Name Role Phone Rory Tamez MD Primary Care Provider Chilo Adam [phone] Allergies Allergen (clinical drug ingredient) Drug/Non Drug Allergy documented on EMR Reaction Allergy Type Onset Date Status seasonal (uncoded) Unknown Allergy A ctive Reason For Referral No Information Medications Medication SIG (Take, Route, Fr equency, Duration) Notes Start Date End Date Status Allergy Decongestant Active Fish Oil Active Immunizations Vaccine Route Administration Date Status Comme nts Influenza Unknown 11/06/2021 Refused Problems Problem Type SNOMED Code ICD Code Onset Dates Problem Status W/U Status Risk Notes Problem 769928655 Encounter for screening for malignant neoplasm of colon (Z12.11) Active confirmed Problem History of adenomatous polyp of colon (499356943) History of adenomatous polyp of colon (Z86.010) Active confirmed Problem Screening for malignant neoplasm of rectum (615863097) Encounter for screening for malignant neoplasm of rectum (Z12.12) Active confirmed Problem 53574688 Preprocedural examination (Z01.818) Active confirmed Problem History of polyp of colon (251923302) History of colon polyps (Z86.010) Active confirmed Problem Diverticulosis of colon (566357566) Diverticulosis of colon (K57.30) Active confirmed Plan Of Treatment Future Test Test Name Order Date COLONOSCOPY 05/11/2015 COLONOSCOPY 11/06/2021 Insurance Providers Payer Name Payer Address Payer Phone Subscriber Number Group Number Insured Name Patient Relationship to Insured Coverage Start Date Coverage End Date [facility] [address] [place] [address] [id number] ALYSSA HILL Self - patient is the insured Medical (General) History Medical History History ICD Code Denies VA,DM,CVA,Lung disease,renal dise ase Colonoscopy 08/2015 with a small tubular aenoma removed Surgical History Surgery Date(Month/Year) Hernia repair-left inguinal 1987 Hernia repair - right inguinal
--- OUTSIDE RECORDS SUMMARY | 2024-07-16 12:13 | XMS_ITS ---
Author Organization Rory Tamez MD Address [address] [place], [place] [phone] Care Team Providers Care Chairman & Ceo Name Role Phone Rory Tamez Primary Care Provider [phone] Allergies No Known Allergies Reason For Referral Reason VISION LOSS Diagnosis 1 Vision loss (H54.7) Referral Organization Rory Tamez MD Referring Provider First Name Rory Referring Provider Last Name Joi Referring Provider Speciality Internal M edicine Referred Provider Enrrique Murphy Referred Provider Specialty Cardiovascul ar Disease General Notes Elicia Miranda 05/27/2024 11:24:43 AM >[facility] P[facility] A 07/09/2024 01:09:35 PM >patient has been scheduled [...] Date Provider Diagnosis Rory Tamez MD [address] [place], [place] [phone] 05/27/2024 Rory Tamez Vision loss H54.7 Assessments [...] Details 05/27/2024 05/27/2024, VISION L OSS, Enrrique Murphy Next Appt Details Provider Name:Rory Arias ier, 07/23/2024 08:00:00 AM, [address] [facility] [address] [facility], [address], [place], [place], [phone], Progress Notes * ALYSSA HILL RDOB: [birth year] (63 yo M)Acc No.[id number]:05/27/2024 Progress Notes Patient:?ALYSSA HILL R Provider:?Rory Tamez MD :1960???Age:63 Y???Sex:Male Jamal e:05/27/2024 Address:[address] [place] [address] Subjective: * Chief Complaints: * ???2 month * HPI: ???Symptom(s):?patienti is a 63 yo male here for 2 month follow up visit, had a black out of vision. went to retinal expert and she didn't find aything. * ROS:?General/Constitutional:?Denies?Chills.?Denies?Fatigue.?Denies?Fever.?Denies?Headache.?ENT:?Patient denies?decreased sense of smell, any loss of taste, sore throat.?Denies?Sore throat.?Respiratory:?Denies?Cough.?Denies?Shortness of breath at rest.?Denies?Shortness of breath with exertion.?Gastrointestinal:?Denies?Diarrhea.?Denies?Nausea.?Musculoskeletal:?Patient denies?muscle aches.?Peripheral Vascular:?Patient denies?red and blue toes.? * Medical History:? * Surgical History:? * Hospitalization/Major Diagno stic Procedure:? * Medications:?TakingAspirin 8 1 81 MG Tablet Delayed Release 1 tablet [...] reviewed and reconciled with the patient * Allergies:?N.K.D.A.yes[Aller gies Verified] Objective: * Vitals:?Ht: 69.5, Wt: 200, B TX:29.11, BP:128/80, Wt-k.72. * Examination: ???General Examination: ?GENERAL APPEARANCE:?well developed, well nourished.?HEAD:?normocephalic.?SKIN:?good turgor.?HEART:?regular rate and rhythm, no murmurs, rubs, gallops.? Assessment: * Assessment: 1.?Vision loss - H54.7 (Prim silviano)??? Plan: * Treatment: * Procedure Codes:? * * Sign off status: Completed true * Provider:?Rory Tamez MD Date:?0 05/27/2024 Generated for Giuliana matias/Ally/eTransmitting on:?07/16/2024 12:13 PM EDT History and Physical [...]
--- OUTSIDE RECORDS SUMMARY | 2024-07-16 12:13 | XMS_ITS ---
Author Organization Rory Tamez MD Address [address] [place], [place] [phone] Care Team Providers Care Rock Climbing Team Member Name Role Phone Rory Tamez Primary Care Provider Results Component Value Reference Range Notes Complete Blood Count Auto Di ff (Not yet reviewed by provider) Interpretation: Performing Lab:[facility], [address] [place] [phone] Notes/Report: White Blood Count 5.1 4.8-10.8 X10*3/uL [...] NRBC Abs Auto 0.000 0.0-0.012 X10*3/uL [facility] [place]. Panel Fa (Not yet reviewed by provider) Interpretation: Performing Lab:[address] [id number] Notes/Report: Sodium 138 135-145 mmol/L Potassium 4.2 [...] 67 39-117 U/L Lipid Panel (Not yet review ed by provider) Interpretation: Performing Lab:[address] [phone] Notes/Report: Triglycerides 68 <150 mg/dL Desirable Triglyceride: [...] t yet reviewed by provider) Interpretation: Performing Lab:[address] [phone] Notes/Report: PSA,Total (Free>4and<10) 1.08 0.00-4.00 ng/mL A [...] (Not yet reviewed by provider) Interpretation: Performing Lab:[facility], [address] [place] [phone] Notes/Report: Urine, Clean Catch Color Urine Yellow Appearance Urine Clear PH 6.5 5.0-9.0 Glucose Urine UA Negative Negative mg/dL Urine Blood Negative Negative Specific Lee - Urine 1.015 1.005-1.025 Urine Protein Negative [...] Date Provider Diagnosis Rory Tamez MD [address] [place], [place] [phone] 07/16/2024 Rory Tamez Blood tests for routine general physical examination Z00.00 ; Essential (primary) hypertension I10 and High cholesterol E78.00 Assessments Encounter Date Diagnosis (ICD Code) Assessment Notes Treatment Notes Treatment Clinical Notes Section Notes 07/16/2024 Blood tests for routine general physical examination (ICD-10 - Z00.00) 07/16/2024 Essential (primary) hypertension (ICD-10 - I10) 07/16/2024 High cholesterol (ICD-10 - E78.00) Plan Of Treatment Pending Test Test Name Order Date Complete Blood Count Auto Diff [facility] [place]. Panel Fast Lipid Panel 07/16/2024 PSA,Total (Free>4and<10) 07/16/2024 UA ClnCatch+Micro w/rflx Cult 07/16/2024 Next Appt Details Provider Name:Rory Arias ier, 07/23/2024 08:00:00 AM, [address] [place] [address], [address], [place], [place], [phone], Progress Notes * ALYSSA HILL RDOB: [birth year] (63 yo M)Acc No.[id number]:07/16/2024 Progress Note Patient:?ALYSSA HILL Provider:?Rory Tamez MD :1960???Age:63 Y???Sex:Male Jamal e:07/16/2024 Address:[address] [place], [place] [phone] Subjective: * Chief Complaints: * ???1. Yearly fasting labs. * Medical History:? Objective: * Vitals:? Assessment: * Assessment: 1.?Blood tests for routine g eneral physical examination - Z00.00 (Primary)???2.?Essential (primary) hypertension - I10???3.?High cholesterol - E78.00??? Plan: * Treatment: 2.?Essential (primary) hyper tension?LAB: Complete Blood Count Auto Diff (Collection Date & Time - 07/16/2024 07:00 AM) ?LAB: [facility] [place]. Panel Fast (Collection Date & Time - 07/16/2024 07:00 AM) ?LAB: Lipid Panel (Collection Date & Time - 07/16/2024 07:00 AM) ?LAB: PSA,Total (Free>4and<10) (Collection Date & Time - 07/16/2024 07:00 AM) ?LAB: UA ClnCatch+Micro w/rflx Cult (Collection Date & Time - 07/16/2024 07:00 AM) 3.?High cholesterol?LAB: Complete Blood Count Auto Diff (Collection Date & Time - 07/16/2024 07:00 AM) ?LAB: [facility] [place]. Panel Fast (Collection Date & Time - 07/16/2024 07:00 AM) ?LAB: Lipid Panel (Collection Date & Time - 07/16/2024 07:00 AM) ?LAB: PSA,Total (Free>4and<10) (Collection Date & Time - 07/16/2024 07:00 AM) ?LAB: UA ClnCatch+Micro w/rflx Cult (Collection Date & Time - 07/16/2024 07:00 AM) * Procedure Codes:?62181 VENIP UNCT, ROUTINE* * * The named appointment provid er may or may not be the originator of this progress note, and it is not deemed complete until electronically signed by the appointment provider. Sign off status: Pending * Provider:?Rory Tamez MD Date:?0 07/16/2024 Generated for Giuliana salcedo/Ally/eTransmitting on:?07/16/2024 12:13 PM EDT
== END 2024-07-16 10:40 | disposition home or self-care (01) ==
LOC: HO.LNP 10:39
PROVIDERS: Visit Provider Internal Medicine
DX: Z00.00 Encounter for general adult medical examination without abnormal findings (principal); I10 Essential (primary) hypertension; E78.00 Pure hypercholesterolemia, unspecified
CPT/HCPCS: 80053; 80061; 81001; 84153; 85025

== ENCOUNTER 2024-09-23 09:38 | Outpatient (AMB) | payer OTHER, SELFPAY ==
--- OUTSIDE RECORDS SUMMARY | 2024-09-23 09:55 | XMS_ITS | Patient Health Record ---
Author Organization [facility] Address [address] [place] [address] Care Team Providers Care Tech Ed Teacher Name Role Phone Rory Tamez MD Primary Care Provider Chilo Adam [phone] Allergies Allergen (clinical drug ingredient) Drug/Non Drug [...] Problem Status W/U Status Risk Notes Problem [id number] Encounter for screening for malignant neoplasm of colon (Z12.11) Active confirmed Problem History of adenomatous polyp of colon (723451012) History of adenomatous polyp of colon (Z86.010) Active confirmed Problem Screening for malignant neoplasm of rectum (570965176) Encounter for screening for malignant neoplasm of rectum (Z12.12) Active confirmed Problem 59306655 Preprocedural examination (Z01.818) Active confirmed Problem History of polyp of colon (situation) (633323030) History of colon polyps (Z86.010) Active confirmed Problem Diverticulosis of colon (844940354) Diverticulosis of colon (K57.30) Active confirmed Plan Of Treatment Future Test Test Name Order Date COLONOSCOPY 05/11/2015 COLONOSCOPY 11/06/2021 Insurance Providers Payer Name Payer Address Payer Phone Subscriber Number Group Number Insured Name Patient Relationship to Insured Coverage Start Date Coverage End Date [facility] [address] [place] [address] [id number] ALYSSA HILL Self - patient is the insured Medical (General) History Medical History History ICD Code Denies ID,DM,CVA,Lung disease,renal dise ase Colonoscopy 08/2015 with a small tubular aenoma removed Surgical History Surgery Date(Month/Year) Hernia repair-left inguinal 1987 Hernia repair - right inguinal
--- OUTSIDE RECORDS SUMMARY | 2024-09-23 09:56 | XMS_ITS | Patient Health Record ---
Author Organization Rory Tamez MD Address [address] [place], [place] [id number] Care Team Providers Care Department Traffic Freight Router Name Role Phone Rory Tamez Primary Care Provider [phone] Allergies No Known Allergies Results Component Value Reference Range Notes Pathology Reviewed date:10/13/2023 12:40:13 PM Interpretation: Performing Lab:[facility], [address] [place] [phone] Notes/Report: --- Name: Ross Barber Age/Sex: 62/M : 1960 Unit#: [id number] Attend Dr: Raul Butler MD Re10/09/23 Status : DIS IN Location: [facility] 372-1 Disch: 10/10/23 --- SPEC : [id number] RECD : 10/09/23 STATUS: GELY LO NUM: [id number] ODRA: 10/09/231112 [facility] DR: Raul Butler MD ENTERED: 10/09/23 33 SP TYPE: Surgical OTHR DR: Rory [...] measures up to 0.25 cm in thickness. Import Clerk sections are submitt ed in a cassette labeled A1 to include the margin of resection of the cystic duct. CEDS Copies To: Rory Tamez MD [address] [address] Raul Butler MD [address] [place] [address] [place] [address] CONTINUED ON NEXT PAGE --- Name: Ross Barber Age/Sex: 62/M : 1960 Unit#: [id number] Attend Dr: Raul Butler MD Re10/09/23 Status : DIS IN Location: [facility] 372-1 Disch: 10/10/23 --- SPEC : [id number] RECD : 10/09/23-1229 STATUS: GELY LO NUM: [id number] DORA: 10/09/23-[address] [facility] [address]: Raul Butler MD ENTERED: 10/09/23-12 33 SP TYPE: Surgical OTHR DR: Rory Tamez MD ORDERED: Jasmyn Micro L3 --- Signed (signature on file) Bettina [place] 10/11/23 1439 --- END OF REPORT Lipid Panel Reviewed date:01/19/2024 12:43:42 PM Interpretation: Performing Lab:[facility], [address] [place] [phone] Notes/Report: Triglycerides 98 <150 mg/dL Desirable Triglyceride: [...] disease. Complete Blood Count Auto Di ff Reviewed date:07/16/2024 05:17:22 PM Interpretation: Performing Lab:[facility], [address] [place] [phone] Notes/Report: White Blood Count 5.1 4.8-10.8 X10*3/uL [...] NRBC Abs Auto 0.000 0.0-0.012 X10*3/uL Comprehensive Dexter. Panel Fa st Reviewed date:07/16/2024 05:16:56 PM Interpretation: Performing Lab:[address] [phone] Notes/Report: Sodium 138 135-145 mmol/L Potassium 4.2 [...] Panel Reviewed date:07/16/2024 05:11:31 PM Interpretation: Performing Lab:[facility] [address] [phone] Notes/Report: Triglycerides 68 <150 mg/dL Desirable Triglyceride: [...] (Free>4and<10) Reviewed date:07/16/2024 05:12:50 PM Interpretation: Performing Lab:[address] [phone] Notes/Report: PSA,Total (Free>4and<10) 1.08 0.00-4.00 ng/mL A [...] t Reviewed date:07/16/2024 05:12:41 PM Interpretation: Performing Lab:[address] [phone] Notes/Report: Urine, Clean Catch Color Urine Yellow Appearance Urine Clear PH 6.5 5.0-9.0 Glucose Urine UA Negative Negative mg/dL Urine Blood Negative Negative Specific Olga - Urine 1.015 1.005-1.025 Urine Protein Negative Neg-Trace mg/dL Urine Ketones Negative Negative mg/dL Nitrite Urine Negative Negative Leukocyte Esterase Urine Negative Negative RBC Urine 0-2 0-2 /HPF WBC Urine 0-5 0-5 /HPF Squamous Epithelial Cell Urine 0-2 0-2 /HPF Bacteria Urine None Seen None Seen Hyaline Casts Urine 0-2 0-2 /LPF Occult Blood, Stool, Guaiac Reviewed date:07/23/2024 10:54:26 AM Interpretation:Negative Performing Lab: Notes/Report: Negative Occult Blood, Stool, Guaiac Neg Reason For Referral Reason VISION LOSS Diagnosis 1 Vision loss (H54.7) Referral Organization Rory Tamez MD Referring Provider First Name Rory Referring Provider Last Name Joi Referring Provider Speciality Internal M edicine Referred Provider Enrrique uMrphy Referred Provider Specialty Cardiovascul ar Disease General Notes Elicia Miranda 05/27/2024 11:24:43 AM >THE REFERRAL HAS BEEN FAXED TO [facility]ARDIOVASCUL[facility]uben Patti A 07/09/2024 01:09:35 PM >patient [...] smoker, currently using no form of tobacco Alcohol Screen Question Answer Notes Did you have a drink containing alcohol in the p ast year? No Points 0 Interpretation Negative AUDIT-C (Standard) Question Answer Notes Did you have a drink containing alcohol in the p ast year? 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 Problem Essential hypertension (34157191) Essential (primary) hypertension (I10) Active confirmed Problem 024489809 Tubular adenoma of colon (D12.6) Active confirmed Problem 301099025 Vision loss (H54.7) Active confirmed Problem High cholesterol (38129646) High cholesterol (E78.00) Active confirmed Problem 33850872 Hepatic cyst (K76.89) Active confirmed Problem 75369038557519 Lesion of tonsil (J35.9) Active confirmed Vital Signs Blood pressure diastolic 70 mm Hg 07/23/2024 Height 69.5 in 07/23/2024 Blood pressure systolic 132 mm Hg 07/23/2024 Weight 201 lbs 07/23/2024 BMI 29.25 kg/m2 07/23/2024 Encounters Encounter Location Date Provider Diagnosis Rory Tamez MD [address] [place] [id number] 01/19/2024 Rory Tamez High cholesterol E78.00 Rory Tamez MD [address] [place] [id number] 07/16/2024 Rory Tamez Blood tests for routine general physical examination Z00.00 ; Essential (primary) hypertension I10 and High cholesterol E78.00 Rory Tamez MD [address] [place] [id number] 03/04/2024 Rory Tamez Amaurosis fugax G45. 3 Rory Tamez MD [address] [place] [id number] 03/29/2024 Rory Tamez Hepatic cyst K76.89 and Vision loss H54.7 Rory Tamez MD [address] [place] [id number] 05/27/2024 Rory Tamez Vision loss H54.7 Rory Tamez MD [address] [place] [id number] 07/23/2024 Rory Tamez Essential (primary) hypertension I10 ; Annual physical exam Z00.00 ; High cholesterol E78.00 ; Amaurosis fugax G45.3 ; Colon cancer screening Z12.11 and Depression screening Z13.31 Rory Tamez MD [address] [place] [id number] 10/13/2023 Rory Tamez MD [address] [place] [id number] 03/11/2024 Rory Tamez Foreign body sensation, bilateral eyes H57.8A3 Assessments Encounter Date Diagnosis (ICD Code) Assessment Notes Treatment Notes Treatment Clinical Notes Section Notes 01/19/2024 High cholesterol (ICD-10 - E78.00) 07/16/2024 Blood tests for routine general physical examination (ICD-10 - Z00.00) 03/04/2024 Amaurosis fugax (ICD-10 - G45.3) aspirin 81 mg daily MRA order faxed to [facility] / Echo order faxed to [facility] CS dept, pending diagnostic testing 03/29/2024 Hepatic [...] of embolic. will refer to dr murphy 07/23/2024 Essential (primary) hypertension (ICD-10 - I10) doing well, will continue current regiment 07/23/2024 Annual physical exam (ICD-10 - Z00.00) labs reviewed and discussed with patient 07/16/2024 Essential (primary) hypertension (ICD-10 - I10) 07/23/2024 High cholesterol (ICD-10 - E78.00) not high enough to treat, will continue to monitor 03/11/2024 Foreign body sensation, bilateral eyes (ICD-10 - H57.8A3) order faxed tp [facility] 07/16/2024 High cholesterol (ICD-10 - E78.00) 07/23/2024 Amaurosis fugax (ICD-10 - G45.3) not having any episodes, will continue to monitor 07/23/2024 Colon cancer screening (ICD-10 - Z12.11) guaiac negative 07/23/2024 Depression screening (ICD-10 - Z13.31) negative screen Plan Of Treatment Pending Test Test Name Order Date Electrocardiogram (EKG) 02/13/2017 Electrocardiogram (EKG) 03/04/2019 MRA BRAIN NO CONTRAST 03/04/2024 XR ORBITS FOR FOREIGN BODY 03/11/2024 ECHO 03/04/2024 US abdomen limited 03/29/2024 Next Appt Details Provider Name:Rory hess, 07/21/2025 07:45:00 AM, [address] [place] [address], [address], [phone], Provider Name:Rory hess, 07/28/2025 08:00:00 AM, [address] [place] [address] Drive, [address], [place], [place], [phone], Insurance Providers Payer Name Payer Address Payer Phone Subscriber Number Group Number Insured Name Patient Relationship to Insured Coverage Start Date Coverage End Date [facility] [facility] [employer] Direct [address] [place] [address] [id number] ROSS BARBER Self - patient is the insured Medical (General) History Medical History History ICD Code colonoscopy done 08/07/15 w/Dr Kay Bennett - repeat either 5yrs due (2020); Colonoscopy 12/17/21 due 5yr( 2026) Surgical History Surgery Date(Month/Year) Repair Rt Inguinal Hernia w/Mesh 05/2017
--- OUTSIDE RECORDS SUMMARY | 2024-09-23 09:56 | XMS_ITS ---
Author Organization Rory Tamez MD Address [address] [place], [place] [phone] Care Team Providers Care Machinery Erector Name Role Phone Rory Tamez Primary Care [...] AM >THE REFERRAL HAS BEEN FAXED TO [facility] Patti A 07/09/2024 01:09:35 PM >patient [...] Location Date Provider Diagnosis Rory Tamez MD [address] [place] [address] [place] [id number] 05/27/2024 Rory Tamez Vision loss H54.7 Assessments [...] Next Appt Details Provider Name:Rory Arias ier, 07/21/2025 07:45:00 AM, [address] [place] [address], [place] [address], [place], [place], [phone], Provider Name:Rory Arias ier, 07/28/2025 08:00:00 AM, [address] [place] [address], [address] [place] [address], [phone], Progress Notes * ALYSSA HILL RDOB: [birth year] (63 yo M)Acc No.[id number]:05/27/2024 Progress Notes Patient:?ALYSSA HILL Provider:?Rory Tamez MD :1960???Age:63 Y???Sex:Male Jamal e:05/27/2024 Address:[address] [place], [place] [phone] Subjective: * Chief Complaints: * ???2 month [...] Objective: * Vitals:?Ht: 69.5, Wt: 200, B VT:29.11, BP:128/80, Wt-k.72. * Examination: ???General Examination: ?GENERAL APPEARANCE:?well developed, well nourished.?HEAD:?normocephalic.?SKIN:?good turgor.?HEART:?regular rate and rhythm, no murmurs, rubs, gallops.? Assessment: * Assessment: 1.?Vision loss - H54.7 (Prim silviano)??? Plan: * Treatment: * Procedure Codes:? * * Sign off status: Completed true * Provider:?Rory Tamez MD Date:?0 05/27/2024 [facility]/Ally/eTransmitting on:?09/23/2024 09:55 AM EDT History and Physical Notes * [...]
--- OUTSIDE RECORDS SUMMARY | 2024-09-23 09:56 | XMS_ITS ---
Author Organization Rory Tamez MD Address [address] [place], [place] [phone] Care Team Providers Care Tread Builder Name Role Phone Rory Tamez Primary Care [...] Location Date Provider Diagnosis Rory Tamez MD [address] [place] [address] Drive [address] [place] [id number] 07/23/2024 Rory Tamez Essential (primary) hypertension I10 [...] Reason: Provider Name:Rory hess, 07/21/2025 07:45:00 AM, [address] [place] [address], Suite [facility], [place], [place], [phone], Provider Name:Rory hess, 07/28/2025 08:00:00 AM, [address] [place] [address], Suite [facility], [place], [place], [phone], Progress Notes * ALYSSA HILL RDOB: [birth year] (63 yo M)Acc No.[id number]:07/23/2024 Progress Notes Patient:?ALYSSA HILL Provider:?Rory Tamez MD :1960???Age:63 Y???Sex:Male Jamal e:07/23/2024 Address:[address] [place] [address] Subjective: * Chief Complaints: * ???Annual visit * HPI: ???Depression Screening:?PHQ-9?Little interest or pleasure in doing things?Not at all,?Feeling down, depressed, or hopeless?Not at all,?Trouble falling or staying asleep, or sleeping too much?Not at all,?Feeling tired or having little energy?Not at all,?Poor appetite or overeating?Not at all,?Feeling bad about yourself or that you are a failure, or have let yourself or your family down?Not at all,?Trouble concentrating on things, such as reading the newspaper or watching television?Not at all,?Moving or speaking so slowly that other people could have noticed; or the opposite, being so fidgety or restless that you have been moving around a lot more than usual?Not at all,?Thoughts that you would be better off or of hurting yourself in some way?Not at all,?Total Score?0.?Interpretation and Intervention?Depression Screening Findings?Negative,?Follow-Up for Depression?: review of PHQ-9 found negative result, no follow-up needed.?Communication Needs:?Communication Needs?Does the patient have a hearing impairment?No,?Does the patient have a vision impairment??Yes,?If yes, what is the vision impairment??Glasses,?Does the patient have a cognition impairment??No.?SDOH Questions:?SDOH Questions?In the past year have you been worried about losing housing??No,?In the past year have you or any family members you live with been unable to get any of the following when it was really needed? Check all that apply:?None.?Symptom(s):? patient is a 63 yo male here for annual visit with review of recent labs and follow up of chronic issues.. doing well. has been lifting weight. * ROS:?General/Constitutional:?Change in appetite?denies.?Chills?denies.?Fever?denies.?Ophthalmologic:?Blurred vision?denies.?Discharge?denies.?Pain?denies.?ENT:?Decreased hearing?denies.?Sore throat?denies.?Swollen glands?denies.?Endocrine:?Cold intolerance?denies.?Excessive thirst?denies.?Heat intolerance?denies.?Weight loss?denies.?Respiratory:?Cough?denies.?Shortness of breath at rest?denies.?Shortness of breath with exertion?denies.?Wheezing?denies.?Cardiovascular:?Chest pain at rest?denies.?Chest pain with exertion?denies.?Irregular heartbeat?denies.?Shortness of breath?denies.?Gastrointestinal:?Abdominal pain?denies.?Change in bowel habits?denies.?Diarrhea?denies.?Nausea?denies.?Rectal bleeding?denies.?Vomiting?denies .?Genitourinary:?Blood in urine?denies.?Difficulty urinating?denies.?Frequent urination?denies.?Musculoskeletal:?Painful joints?denies.?Weakness?denies.?Skin:?Dry skin?denies.?Itching?denies.?Denies?Mole(s),? changes in moles, new moles or any lesions of concern.?Denies?Photosensitivity.?Rash?denies.?Neurologic:?Dizziness?denies.?Fainting?denies.?Headache?denies.? * Medical History:? * Surgical History:? * Hospitalization/Major Diagno stic Procedure:? * Family History:?Father: dece ased 67 yrs, diagnosed with CHF.?Mother: 78 yrs, diagnosed with Cancer.?2 brother(s) , 2 sister(s) . .? Denies mental health/substance abuse family history, Denies mental health/substance abuse family history, Denies mental health/substance abuse family history. * Social History:?Tobacco Use:?Tobacco Use/Smoking?Patient is a?former smoker,?How long has it been since you last smoked??> 10 years,?Additional Findings: Tobacco Non-User?Former smoker, currently using no form of tobacco.?Miscellaneous:?Caffeine: yes, 3-4 cups per day. Children: no. Community involvements: yes, belongs to [employer] group. Exercise: no. Housing: owning. Living with: spouse. Marital status: . Occupation: works full-time. Pets: dogs x3. Travel outside of the [place]: no. ???Drug/Alcohol:?AUDIT-C (Standard)?Did you have a drink containing alcohol in the past year??No,?Points?0,?Interpretation?Negative.? * Medications:?TakingAspirin 8 1 81 MG Tablet [...] gies Verified] Objective: * Vitals:?Ht: 69.5, Wt: 201, B TN:29.25, BP:132/70, Wt-k.17. * ???Past Orders: ???Lab:Complete Blood Count Auto Diff (Order Date - 07/16/2024) (Collection Date & Time - 07/16/2024 07:00 AM) ? Value Reference Range ?White Blood Count 5.1 4. 8-10.8 - X10*3/uL ?Red Blood Count 5.16 4.60 -5.80 - X10*6/uL ?Hemoglobin 14.9 14.0-18.0 - g/dl ?Hematocrit 43.4 42.0-52.0 - % ?Mean Corpuscular Volume 84.1 80.0-98.0 - fL ?Mean Corpuscular Hemoglobin 28.9 27.0-33.0 - pg ?Mean Corpuscular HGB Conc 34.3 31.0-36.0 - g/dl ?Red Cell Distribution Width 13.0 11.0-16.0 - % ?Platelet Count 214 160-4 00 - X10*3/uL ?Mean Platelet Volume 11.6 9.4-12.4 - fL ?Neutrophils Percent Auto 53.9 45-73 - % ?Imm Gran Pct Auto 0.0 0. 0-0.4 - % ?Lymphocytes Percent Auto 31.1 20-40 - % ?Monocytes Percent Auto 11.1 H 2-11 - % ?Eosinophils Percent Auto 2.9 0-4 - % ?Basophils Percent Auto 1.0 0-2 - % ?NRBC Pct Auto 0.0 0.0-0. 2 - /100WBC ?Neutrophils Absolute Auto 2.8 2.0-8.3 - x10*3/uL ?Imm Gran Abs Auto 0.00 0. 00-0.03 - X10*3/uL ?Lymphocytes Absolute Auto 1.6 1.2-4.9 - X10*3/uL ?Monocytes Absolute Auto 0.6 0.1-1.2 - X10*3/uL ?Eosinophils Absolute Auto 0.2 0.0-0.4 - X10*3/uL ?Basophils Absolute Auto 0.1 0.0-0.2 - X10*3/uL ?NRBC Abs Auto 0.000 0.0-0. 012 - X10*3/uL ???Lab:Comprehensive Ragan. P whit Fast (Order Date - 07/16/2024) (Collection Date & Time - 07/16/2024 07:00 AM) ? Value Reference Range ?Sodium 138 135-145 - mmo l/L ?Bilirubin Total 0.8 0.0- 1.0 - mg/dL ?Aspartate Amino Transferase 27 5-37 - U/L ?Alanine Aminotransferase 32 0-40 - U/L ?Total Protein 7.4 6.5-8. 0 - g/dL ?Albumin Level 4.0 3.5-5. 0 - g/dL ?Alkaline Phosphatase 67 39-117 - U/L ?Potassium 4.2 3.3-5.1 - mmol/L ?Chloride 107 96-108 - mm ol/L ?Carbon Dioxide 25 22-29 - mmol/L ?Anion Gap 10 L 12-20 - ?Blood Urea Nitrogen 15 9-16 - mg/dL ?Creatinine 0.88 0.5-1.4 - mg/dL ?Estimated Glomerular Filt Rate > 60 - ?Glucose Fasting 90 60-9 9 - mg/dL ?Calcium 8.8 8.4-10.2 - m g/dL ???Lab:Lipid Panel (Order Da te - 07/16/2024) (Collection Date & Time - 07/16/2024 07:00 AM) ? Value Reference Range ?Triglycerides 68 <150 - mg/dL ?Cholesterol 211 H <200 - m g/dL ?LDL Cholesterol Calculated 143 H <100 - mg/dL ?HDL Cholesterol 55 >40 - mg/dL ???Lab:PSA,Total (Free>4and< 10) (Order Date - 07/16/2024) (Collection Date & Time - 07/16/2024 07:00 AM) ? Value Reference Range ?PSA,Total (Free>4and<10) 1.08 0.00-4.00 - ng/mL ???Lab:UA ClnCatch+Micro w/r flx Cult (Order Date - 07/16/2024) (Collection Date & Time - 07/16/2024 07:00 AM) ? Value Reference Range ?Color Urine Yellow - ?Appearance Urine Clear - ?PH 6.5 5.0-9.0 - ?Glucose Urine UA Negative Neg ative - mg/dL ?Urine Blood Negative Negative - ?Specific Cuervo - Urine 1.015 1.005-1.025 - ?Urine Protein Negative Neg-Tr michael - mg/dL ?Urine Ketones Negative Negati ve - mg/dL ?Nitrite Urine Negative Negati ve - ?Leukocyte Esterase Urine Negative Negative - ?RBC Urine 0-2 0-2 - /HPF ?WBC Urine 0-5 0-5 - /HPF ?Squamous Epithelial Cell Urine 0-2 0-2 - /HPF ?Bacteria Urine None Seen None Seen - ?Hyaline Casts Urine 0-2 0-2 - /LPF * Examination: ???General Examination: ?GENERAL APPEARANCE:?well developed, well nourished, in no acute distress.?HEAD:?normocephalic, atraumatic.?EYES:?pupils equal, round, reactive to light and accommodation, sclera non-icteric.?EARS:?normal.?ORAL CAVITY:?mucosa moist.?THROAT:?clear.?NECK/THYROID:?neck supple, full range of motion, no cervical lymphadenopathy, no bruits.?SKIN:?warm and dry, no suspicious lesions.?HEART:?regular rate and rhythm, S1, S2 normal, no murmurs.?LUNGS:?clear to auscultation bilaterally.?ABDOMEN:?soft, nontender, nondistended, bowel sounds present, normal, no organomegaly , no masses palpable.?RECTAL EXAM:?normal tone, no external hemorrhoids, no masses palpable, prostate normal, stool guaiac negative.?MALE GENITOURINARY:?not examined, uncircumcised, testes descended bilaterally, no testicular mass.?EXTREMITIES:?no clubbing, cyanosis, or edema.?NEUROLOGIC:?nonfocal, motor strength normal upper and lower extremities, sensory exam intact.? Assessment: * Assessment: 1.?Annual physical exam - Z0 0.00 (Primary)???2.?Essential (primary) hypertension - I10???3.?High cholesterol - E78.00???4.?Amaurosis fugax - G45.3???5.?Colon cancer screening - Z12.11???6.?Depression screening - Z13.31??? Plan: * Treatment: 2.?Essential (primary) hyper tension? Notes: doing well, will continue current regiment?? 3.?High cholesterol? Notes: not high enough to treat, will continue to monitor?? 4.?Amaurosis fugax? Notes: not having any episodes, will continue to monitor?? 5.?Colon cancer screening?LAB: Occult Blood, Stool, Guaiac (Collection Date & Time - 07/23/2024)?Negative ? Value Reference Range ?Occult Blood, Stool, Guaiac Neg Notes: guaiac negative??6.?Depression screening? Notes: negative screen?? * Procedure Codes:?72997 TEST FOR BLOOD, FECES * Preventive Medicine:? ??Counseling:?Care goal follow-up plan:?Counseling for abnormal BMI provided?Yes,?Above Normal BMI Follow-up?Giving encouragement to exercise.? * Follow Up:?1 Year * * Sign off status: Completed true * Provider:?Rory Tamez MD Date:?0 07/23/2024 Generated for Giuliana salcedo/Ally/eTransmitting on:?09/23/2024 09:55 AM EDT History and Physical [...] patient have a vision impairmen t?: Yes ?If yes, what is the vision impairment?: Glasses Does the patient have a cognition impair ment?: No Examination Category Sub-Category Detail Notes Category Not es General Examination GENERAL APPEARANCE: well dev eloped, well nourished, in no acute distress HEAD: normocephalic, atrau matic EYES: pupils equal, round, reactive to light and accommodation, sclera non- icteric EARS: normal THROAT: clear NECK/THYROID: neck supple, [...]
--- OUTSIDE RECORDS SUMMARY | 2024-09-23 09:56 | XMS_ITS ---
Author Organization Rory Tamez MD Address [address] [place], [place] [id number] Care Team Providers Care Industrial Psychology Teacher Name Role Phone Rory Tamez Primary Care Provider Results Component Value Reference Range Notes Complete Blood Count Auto Di ff Reviewed date:07/16/2024 05:17:22 PM Interpretation: Performing Lab:[facility], [address] [place] [phone] Notes/Report: White Blood Count 5.1 4.8-10.8 X10*3/uL [...] NRBC Abs Auto 0.000 0.0-0.012 X10*3/uL Comprehensive Alder. Panel Fa st Reviewed date:07/16/2024 05:16:56 PM Interpretation: Performing Lab:[facility], [address] [place] [phone] Notes/Report: Sodium 138 135-145 mmol/L Potassium 4.2 [...] Panel Reviewed date:07/16/2024 05:11:31 PM Interpretation: Performing Lab:[facility], [address] [place] [phone] Notes/Report: Triglycerides 68 <150 mg/dL Desirable Triglyceride: [...] (Free>4and<10) Reviewed date:07/16/2024 05:12:50 PM Interpretation: Performing Lab:[facility], [address] [place] [phone] Notes/Report: PSA,Total (Free>4and<10) 1.08 0.00-4.00 ng/mL A [...] t Reviewed date:07/16/2024 05:12:41 PM Interpretation: Performing Lab:[facility], [address] [place] [phone] Notes/Report: Urine, Clean Catch Color Urine Yellow Appearance Urine Clear PH 6.5 5.0-9.0 Glucose Urine UA Negative Negative mg/dL Urine Blood Negative Negative Specific Eldridge - Urine 1.015 1.005-1.025 Urine Protein Negative [...] Date Provider Diagnosis Rory Tamez MD [address] [place] [address] Drive [address] [place], [place] [id number] 07/16/2024 Rory Tamez Blood tests for routine [...] Details Provider Name:Rory hess, 07/21/2025 07:45:00 AM, [address] [place] [address], Suite [facility], [place], [place], [id number], Provider Name:Rory hess, 07/28/2025 08:00:00 AM, [address] [place] [address], Suite [facility], [place], [place], [phone], Progress Notes * ALYSSA HILL RDOB: [birth year] (63 yo M)Acc No.[id number]:07/16/2024 Progress Note Patient:?ALYSSA HILL Provider:?Rory Tamez MD :1960???Age:63 Y???Sex:Male Jamal e:07/16/2024 Address:[address] [place] [address] Subjective: * Chief Complaints: * ???1. Yearly fasting labs. * Medical History:? Objective: * Vitals:? Assessment: * Assessment: 1.?Blood tests for routine g eneral physical examination - Z00.00 (Primary)???2.?Essential (primary) hypertension - I10???3.?High cholesterol - E78.00??? Plan: * Treatment: 2.?Essential (primary) hyper tension?LAB: Complete Blood Count Auto Diff (Collection Date & Time - 07/16/2024 07:00 AM) ?LAB: Comprehensive Alder. Panel Fast (Collection Date & Time - 07/16/2024 07:00 AM) ?LAB: Lipid Panel (Collection Date & Time - 07/16/2024 07:00 AM) ?LAB: PSA,Total (Free>4and<10) (Collection Date & Time - 07/16/2024 07:00 AM) ?LAB: UA ClnCatch+Micro w/rflx Cult (Collection Date & Time - 07/16/2024 07:00 AM) 3.?High cholesterol?LAB: Complete Blood Count Auto Diff (Collection Date & Time - 07/16/2024 07:00 AM) ?LAB: Comprehensive [place]. Panel Fast (Collection Date & Time - 07/16/2024 07:00 AM) ?LAB: Lipid Panel (Collection Date & Time - 07/16/2024 07:00 AM) ?LAB: PSA,Total (Free>4and<10) (Collection Date & Time - 07/16/2024 07:00 AM) ?LAB: UA ClnCatch+Micro w/rflx Cult (Collection Date & Time - 07/16/2024 07:00 AM) * Procedure Codes:?45723 VENIP UNCT, ROUTINE* * * The named appointment provid er may or may not be the originator of this progress note, and it is not deemed complete until electronically signed by the appointment provider. Sign off status: Pending * Provider:?Rory Tamez MD Date:?0 07/16/2024 Generated for Lilai ng/Fabrennang/eTransmitting on:?09/23/2024 09:56 AM EDT
--- NOTE | 2024-09-23 10:00 | A.OFFVIS_ITS ---
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 He said he had a complete vision loss for about 5 minutes and then vision returned. Since then he had has partial vision losses for few minutes and they have all subsided. 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 Subsequently saw retina specialist am at that time he mentioned about this vision loss and that led to further workup. He has been since started on aspirin therapy. He also had a MRI/MRA at up facility in [place], do not have a copy of the report of the same. Will obtain the same. He had an echocardiogram here which showed overall normal LV function wi th mild aortic regurgitation. The echo was limited for evaluation of PFO. Patient is also noted to have mild hyperlipidemia with LDL of to 143. He has never had any prior cardiovascular events. No other risk factors including hypertension or diabetes. Does have strong family history of atherosclerotic disease in his sister who at age 49 had a stroke and both father and mother have had cardiovascular/cerebrovascular disease. Patient otherwise remains active and runs [employer] and has no symptoms related to with his exertional activity. [facility] Medical History Acute cholecystitis Seasonal allergies Surgical History Hx laparoscopic cholecystectomy (10/09/23) Hx of left inguinal hernia repair Hx of right inguinal hernia repair H/O colonoscopy Social History Household Members: Spouse Housing: House Are you a primary customer care team coach to a significant other at home: No Do you presently have visiting nurse or other home services: No Patient Tobacco Use Status: Former Tobacco user Tobacco use type: Cigarette Second Hand Smoke Exposure: No service: No Review of Systems Const Denies chills, Denies daytime sleepiness, Denies fatigue, Denies fever(s), Denies frequent falls, Denies poor appetite, Denies snoring, Denies stops breathing during sleep, Denies weakness, Denies weight gain and Denies weight loss Eyes Denies loss of vision ENT Denies dizziness and Denies hearing loss Card Denies chest pain, Denies claudication, Denies leg edema, Denies lightheadedness, Denies palpitations, Denies dyspnea, Denies dyspnea on exertion and Denies orthopnea Resp Denies cough, Denies excessive phlegm production, Denies dyspnea, Denies dyspnea on exertion, Denies snoring and Denies wheezing GI Denies abdominal pain, Denies hematochezia, Denies change in bowel habits, Denies nausea and Denies vomiting Denies dysuria and Denies urinary frequency Musc Denies arthralgias, Denies muscle weakness, Denies numbness and Denies other (frequent falls) Skin/Breast Denies nail changes and Denies rash Neuro Denies Abnormal speech present, Denies dizziness, Denies frequent falls, Denies loss of vision, Denies memory loss, Denies numbness and Denies weakness Psych Denies depression and Denies memory loss Endo Denies fatigue and Denies palpitations Jarrod/Lymph Reports easy bruising and Reports other (anemia) Aller/Immun Denies wheezing Physical Exam Vital Signs: Last Vital Signs Pulse 61 09/23/24 10:01 BP 120/76 09/23/24 10:01 BMI result Body Mass Index 30.6 Const General: cooperative, comfortable, no acute distress, well developed, alert, awake and Physically active Nutritional Appearance: well nourished and overweight Orientation/consciousness: patient oriented x3 Limitations: no limitations HEENT Head: Yes normocephalic and Yes atraumatic Neck Neck: Yes trachea midline, Yes supple and Yes no JVD Carotids: no bruits Resp Effort & Inspection: normal respiratory effort Auscultation: clear to auscultation bilaterally Cardio Jugular venous distension: no JVD Palpation: normal PMI Rate: regular rate Rhythm: regular rhythm Heart sounds: S1 normal heart sound present, S2 normal heart sound present, no click, no gallops, no murmurs and no rubs GI Auscultation: normal bowel sounds Skin General skin exam: no rashes or lesions noted Neuro General: patient oriented x3 and no focal motor deficits Speech: No Abnormal speech present Extrem General: Yes no clubbing, cyanosis or edema Psych Appearance: grossly normal Office Procedures EKG Details: EKG shows normal sinus rhythm normal EKG 87047-Trsbfmbzlbgwrlyvn, Complete Assessment & Plan Assessment & Plan (1) Amaurosis fugax: Code(s): G45.3 - Amaurosis fugax Category: Medical Plan: Amaurosis fugax in this middle-aged man with history of hyperlipidemia and strong family history of cerebrovascular as well as cardiovascular disease. He has been appropriately started on aspirin therapy. His echocardiogram, appeared benign. However I would recommend him to undergo transesophageal echocardiogram to further evaluate for etiologies of embolic CVA either from aortic or cardiac origin. The risks, benefits, alternatives were discussed with him. This will help us with evaluation of PFO, intracardiac thrombus masses and/or significant thoracic aortic sclerosis. Given his TIA sounding event I would strongly suggest him to be started on statin therapy. I have taken the liberty to start him on atorvastatin 40 mg daily and follow-up lipid panel in 3 months time. Also strongly recommend him to undergo coronary calcium score to assess for presence of significant coronary atherosclerosis she guide treatment and prognosis. Also low likelihood but possibility of atrial fibrillation would suggest 1 month monitor to assess for any arrhythmias from that perspective that would change treatment. Will follow-up MRI/MRA done on outpatient facility as well. Will follow up in the clinic in 3 months time, sooner p.r.n.. 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 Discontinued Reason: Patient Completed Course 5 mg PO Q6H PRN 15 tabs 0RF pain (scale score 7-10) Coding Level of Care Code New Pt Level 4 (31041) Complex EM visit Add On G2211 Diagnoses Amaurosis fugax G45.3 CPT Codes EKG - CPT: 40168-Gxuglgbwrzugcpmrd, Complete ([id number])
[2024-09-23 10:01] VITALS: BP 120/76; PULSE 61; BMI 30.6
== END 2024-09-23 11:12 | disposition home or self-care (01) ==
LOC: HO.HCS 09:39
PROVIDERS: PCP Internal Medicine; Visit Provider Internal Medicine Cardiovascular Disease
DX: G45.3 Amaurosis fugax (principal)
CPT/HCPCS: 93010; 99214; G2211

== ENCOUNTER → 2024-09-23 09:38 | Outpatient (BNVA) | payer OTHER, SELFPAY | PROVIDERS: PCP Internal Medicine; Visit Provider Internal Medicine Cardiovascular Disease | DX: G45.3 Amaurosis fugax (principal); E78.5 Hyperlipidemia, unspecified; I25.10 Atherosclerotic heart disease of native coronary artery without angina pectoris; Z87.891 Personal history of nicotine dependence | CPT/HCPCS: 93005; 99212 ==

== ENCOUNTER → 2024-09-30 13:43 | Outpatient (REF) | payer OTHER, SELFPAY ==
--- OUTSIDE RECORDS SUMMARY | 2024-09-30 13:50 | XMS_ITS | Patient Health Record ---
Author Organization [facility] Address [address] [place] [address] Care Team Providers Care Director Of Retail Name Role Phone Rory Tamez MD Primary Care Provider Chilo Adam [phone] Allergies Allergen (clinical drug ingredient) Drug/Non Drug [...] Problem Status W/U Status Risk Notes Problem 413150470 Encounter for screening for malignant neoplasm of colon (Z12.11) Active confirmed Problem History of adenomatous polyp of colon (249045275) History of adenomatous polyp of colon (Z86.010) Active confirmed Problem Screening for malignant neoplasm of rectum (194386369) Encounter for screening for malignant neoplasm of rectum (Z12.12) Active confirmed Problem 65897013 Preprocedural examination (Z01.818) Active confirmed Problem History of polyp of colon (situation) (252043136) History of colon polyps (Z86.010) Active confirmed Problem Diverticulosis of colon (337268122) Diverticulosis of colon (K57.30) Active confirmed Plan Of Treatment Future Test Test Name Order Date COLONOSCOPY 05/11/2015 COLONOSCOPY 11/06/2021 Insurance Providers Payer Name Payer Address Payer Phone Subscriber Number Group Number Insured Name Patient Relationship to Insured Coverage Start Date Coverage End Date [facility] [address] [place] [address] [id number] ALYSSA HILL Self - patient is the insured Medical (General) History Medical History History ICD Code Denies [place],DM,CVA,Lung disease,renal dise ase Colonoscopy 08/2015 with a small tubular aenoma removed Surgical History Surgery Date(Month/Year) Hernia repair-left inguinal 1987 Hernia repair - right inguinal
== END ==
LOC: HO.CARD 13:43
PROVIDERS: PCP Internal Medicine; Visit Provider Internal Medicine Cardiovascular Disease
DX: G45.3 Amaurosis fugax (principal)
CPT/HCPCS: 93270

== ENCOUNTER → 2024-09-30 13:45 | Outpatient (BNV) | payer OTHER, SELFPAY | PROVIDERS: PCP Internal Medicine; Visit Provider Internal Medicine Cardiovascular Disease | DX: I48.91 Unspecified atrial fibrillation (principal); I49.1 Atrial premature depolarization; I49.3 Ventricular premature depolarization | CPT/HCPCS: 93272 ==

== ENCOUNTER 2024-10-15 07:57 | Day surgery (SDC) | payer OTHER, SELFPAY ==
[2024-10-13 11:29] VITALS: BMI 30.6
[2024-10-13 12:33] VITALS: BMI 28.8
--- NOTE | 2024-10-14 09:08 | P.CONAN_ITS ---
Documented by User: Candice Lange NP 10/14/24 09:13 HPI - Anesthesia Eval Consult details Narrative: 63yo M for Transesophageal Echocardiogram Work up for Amaurosis fugax with strong fam hx of cerebrovascular ds Eliquis for afib (new seen on 30 day monitor) PMFSH Active Problems Active Problems: All Active Problems Hyperlipidemia (Acute) Amaurosis fugax (Acute) Past Medical History Medical History Wears dentures Arthritis Mild heartburn A-fib Acute cholecystitis Seasonal allergies Family History Family history of problems with anesthesia: No Surgical History Surgical History Hx laparoscopic cholecystectomy (10/09/23) Hx of left inguinal hernia repair Hx of right inguinal hernia repair H/O colonoscopy History of Problems with Anesthesia: No Social History Social History Household Members: Spouse Housing: House Are you a primary primary care pediatrician to a significant other at home: No Do you presently have visiting nurse or other home services: No Patient Tobacco Use Status: Former Tobacco user Tobacco use type: Cigarette Second Hand Smoke Exposure: No Use of substances other than those prescribed or required for medical reasons: No Have you been hit, kicked, punched, or otherwise hurt by someone within the past year? If so, by whom?: No Are you DNR?: No Advance Directives: No Advance Directives Information Provided: Yes Advance Directives on File: No service: No Meds Allergies Allergy/AdvReac Type Severity Reaction Status Date / Time ENVIRONMENTAL Allergy Intermediate HAYFEVER Uncoded 10/15/24 08:06 Home Medications ?Medication ?Instructions ?Recorded ?Confirmed ?Last Taken ?Type omega 9-esg-cew-fish oil 1,200 mg 1 cap PO DAILY 12/10/21 10/15/24 10/14/24 History (144 mg-216 mg) capsule (Fish Oil) multivitamin 1 tab PO DAILY 10/09/23 10/15/24 10/08/23 History loratadine 10 mg tablet (Claritin) 10 mg PO DAILY PRN Allergy Symptoms 10/13/24 10/15/24 10/15/24 06:45 History Exam Height,Weight and Vital Signs: Height 5 ft 9 in Weight 88.451 kg Pertinent Lab Results Pertinent Lab Results: Laboratory Tests 07/16/24 07:00 WBC 5.1 Hgb 14.9 Hct 43.4 Plt Count 214 Sodium 138 Potassium 4.2 Chloride 107 Carbon Dioxide 25 BUN 15 Creatinine 0.88 Narrative Narrative: EKG 09/2024 Details: EKG shows normal sinus rhythm normal EKG ECHO 2023 Conclusions: - 1. Normal LV ejection fraction of 65-70% 2. Mild aortic regurgitation noted 3. No gross pericardial effusion Assessment and Plan Assessment Anesthesia Assessment: Chart Reviewed Final Anesthetic Review Family History of Problems with Anesthesia: No History of Problems with Anesthesia: No Documented by User: Joelle Salter MD 10/15/24 09:32 PMFSH Past Medical History Medical History Wears dentures Arthritis Mild heartburn A-fib Acute cholecystitis Seasonal allergies Surgical History Surgical History Hx laparoscopic cholecystectomy (10/09/23) Hx of left inguinal hernia repair Hx of right inguinal hernia repair H/O colonoscopy Social History Social History Household Members: Spouse Housing: House Are you a primary primary care pediatrician to a significant other at home: No Do you presently have visiting nurse or other home services: No Patient Tobacco Use Status: Former Tobacco user Tobacco use type: Cigarette Second Hand Smoke Exposure: No Use of substances other than those prescribed or required for medical reasons: No Have you been hit, kicked, punched, or otherwise hurt by someone within the past year? If so, by whom?: No Are you DNR?: No Advance Directives: No Advance Directives Information Provided: Yes Advance Directives on File: No service: No Meds Allergies Allergy/AdvReac Type Severity Reaction Status Date / Time ENVIRONMENTAL Allergy Intermediate HAYFEVER Uncoded 10/15/24 08:06 Home Medications ?Medication ?Instructions ?Recorded ?Confirmed ?Last Taken ?Type omega 3-ahc-feg-fish oil 1,200 mg 1 cap PO DAILY 12/10/21 10/15/24 10/14/24 History (144 mg-216 mg) capsule (Fish Oil) multivitamin 1 tab PO DAILY 10/09/23 10/15/24 10/08/23 History loratadine 10 mg tablet (Claritin) 10 mg PO DAILY PRN Allergy Symptoms 10/13/24 10/15/24 10/15/24 06:45 History Exam Airway Mallampati Class: II TM Dist: <=3cm Neck ROM: Limited Denture: Upper Partial: Lower Heart: rrr Lungs: cta Assessment and Plan Assessment Anesthesia Assessment: Anesthesia Plan Discussed Final Anesthetic Review NPO: Yes ASA Class: II Final Preanesthetic Review: No Changes in Pt Med Stat, Meds/Allgs Chart Rev iewed, Consent Obtained/Reviewed and Anes Risks/Benef Reviewed Patient Risk: Intermediate Procedure Risk: Low Anesthetic Plan Anesthetic Plan: MAC: Disposition: Standard PACU
[2024-10-15 08:14] VITALS: BMI 29.3
[2024-10-15 08:16] VITALS: BP 133/77; PULSE 59; RESP 17; TEMP 36.6; O2SAT 97
[2024-10-15] MEDS: Lactated Ringers 1,000 ML 100 ML IVCONT (08:22)
--- NOTE | 2024-10-15 08:29 | CA_ITS ---
Transesophageal Echocardiogram Patient (Last, First, Middle): Ross Barber, Gender: Male Date of : 1960 Age: 63 Procedure Date: 10/15/2024 Procedure Type: Transesophageal Echocardiogram Location: OP Height: 175. cm Weight: 85.01 kg BSA: 2.01 m2 Heart Rate: 63 bpm BP: 124 / 74 mmHg Extruding Department Supervisor: SAPNA Referring MD: Enrrique Murphy MD Computational Geneticist: Enrrique Murphy MD Symptoms: Amaurosis fugax Conclusion: ??? 1. No evidence of intracardiac shunting 2. Normal LV ejection fraction of 60 65% 3. Mild aortic regurgitation 4. Severe atherosclerotic protruding plaque noted in the arch of the aorta 5. No pericardial effusion Findings Procedure Information Consent was obtained prior to the procedure. Pre BRYNN oral cavity was checked and revealed no overcrowding. The adult 3D probe was passed with no difficulty. Left Ventricle Normal left ventricular size, thickness, and systolic function. The visually estimated ejection fraction is between 60-65%. There is no evidence of a mass in the left ventricle. Right Ventricle Normal right ventricular cavity size and systolic function. Atria The left atrium is likely dilated. There is lipomatous hypertrophy of the interatrial septum. There is no evidence of interatrial shunt by color Doppler. There is no evidence of thrombus or mass in the left atrium. significant lipomatous hypertrophy noted of the intra-atrial septum. The fossa was relatively spared without any evidence of significant shunting. The left atrium appendage was identified multiple views. No thrombus noted within the left atrial appendage. The left atrial appendage ejection velocities within normal limits. Left upper, right upper and right lower pulmonary vein draining normally into the left atrium. The right atrium is normal in size. There is no evidence of thrombus or mass in the right atrium. IVC and SVC drain normally into the right atrium. Aortic Valve Normal aortic valve structure and function. There is no aortic valve stenosis. There is mild aortic valve regurgitation. Mitral Valve Normal mitral valve structure and function. There is trace mitral valve regurgitation. There is no mitral valve stenosis. Pulmonic Valve The pulmonic valve is likely normal. There is trace pulmonic valve regurgitation. Tricuspid Valve Normal tricuspid valve structure. There is trace tricuspid valve regurgitation. The right ventricular systolic pressure is not calculated. Great Vessels All visible segments of the aorta are normal in size. The pulmonary artery was not well visualized. Large plaque is seen in the arch. Venous The inferior vena cava is normal in size. Pericardium/Pleural There is no evidence of pericardial effusion. Updated by Enrrique Murphy on 03:12 PM with Status of Final Enrrique Murphy MD electronically signed on 10/15/2024 3:12:05 PM with status of Final
--- NOTE | 2024-10-15 08:29 | MHC.SHP ---
Pre-Procedural Eval Section A - 24 Hr Update-Section A only Date of Service: 10/15/24 The patient is an INPATIENT: No Changes since office visit: Yes Changes in Medication and Yes Patient answered all questions; No Cold of Flu in the past 2 weeks and No New Medical Problems The patient has been examined within 24 hours of the surgical procedure. The History & Physical has been completed within 30 days and I have reviewed it.: Yes Section B - Complete if H&P > 30 days Chief Complaint: Amaurosis fugax Allergies: Allergies Allergy/AdvReac Type Severity Reaction Status Date / Time ENVIRONMENTAL Allergy Intermediate HAYFEVER Uncoded 10/15/24 08:06 Plan I have reviewed the history and physical and performed a pertinent physical examination on my patient. No changes have occurred unless specified. Time Spent With Patient Time: Total time managing care of this patient today ____ minutes.
[2024-10-15 10:24] VITALS: BP 114/66; PULSE 61; RESP 19; TEMP 36.4; O2SAT 98
[2024-10-15 10:25] VITALS: BP 120/65; PULSE 56; RESP 19; O2SAT 98
[2024-10-15 10:30] VITALS: BP 122/75; PULSE 63; RESP 19; O2SAT 96
[2024-10-15 10:35] VITALS: BP 122/75; PULSE 56; RESP 19; O2SAT 96
[2024-10-15 10:49] VITALS: BP 124/72; PULSE 56; RESP 18; TEMP 36.6; O2SAT 96
== END 2024-10-15 11:09 | disposition home or self-care (01) ==
PROVIDERS: PCP Internal Medicine; Visit Provider Internal Medicine Cardiovascular Disease
PROC: (CPT 93312; principal; 2024-10-15 09:30)
DX: G45.3 Amaurosis fugax (principal); I48.91 Unspecified atrial fibrillation; Z87.891 Personal history of nicotine dependence; E78.5 Hyperlipidemia, unspecified; Z82.3 Family history of stroke; J30.2 Other seasonal allergic rhinitis; R12 Heartburn; Z79.01 Long term (current) use of anticoagulants; Z79.82 Long term (current) use of aspirin; Z79.899 Other long term (current) drug therapy; Z98.890 Other specified postprocedural states; I35.1 Nonrheumatic aortic (valve) insufficiency
CPT/HCPCS: 93312; J2003; J2250; J2704

== ENCOUNTER → 2024-10-15 08:29 | Outpatient (BNV) | payer OTHER, SELFPAY | PROVIDERS: PCP Internal Medicine; Visit Provider Internal Medicine Cardiovascular Disease | DX: I35.1 Nonrheumatic aortic (valve) insufficiency (principal); I70.0 Atherosclerosis of aorta; I42.2 Other hypertrophic cardiomyopathy | CPT/HCPCS: 76376; 93312; 93320; 93325 ==

== ENCOUNTER → 2024-12-29 08:18 | Outpatient (REF) | payer MEDICARE, OTHER, SELFPAY ==
--- OUTSIDE RECORDS SUMMARY | 2024-05-27 06:45 | XMS_ITS ---
Author Organization Rory Tamez MD Address [address] [place], [place] [phone] Care Team Providers Care Tnt Powder Worker Name Role Phone Rory Tamez Primary Care Provider Allergies No Known Allergies Reason For Referral Reason VISION LOSS Diagnosis 1 Vision loss (H54.7) Referral Organization Rory Tamez MD Referring Provider First Name Rory Referring Provider Last Name Joi Referring Provider Speciality Internal M edicine Referred Provider Enrrique Murphy Referred Provider Specialty Cardiovascul ar Disease General Notes Elicia Miranda 05/27/2024 11:24:43 AM >THE REFERRAL HAS BEEN FAXED TO [facility] [place] [facility], Elicia Miranda 07/09/2024 01:09:35 PM >patient has been scheduled for 09/23/24 at 10am , he has been informed, Elicia Miranda 09/24/2024 11:32:12 AM >OFFICE NOTE HAS BEEN RECD Referral Priority Routine Referral Appointment Date 09/23/2024 REASON FOR VISIT 2 month Medications Medication SIG (Take, Route, Fr equency, Duration) Notes Start Date End Date Status Fish Oil 1000 MG 1 capsule Orally Once a day Active Claritin 10 MG 1 tablet Orally Once a day Active Aspirin 81 81 MG 1 tablet Orally Once a day Active Vital Signs Blood pressure systolic 128 mm Hg 05/27/19 25 Blood pressure diastolic 80 mm Hg 025 Height 69.5 in 05/27/2024 Weight 200 lbs 05/27/2024 BMI 29.11 kg/m2 05/27/2024 Encounters Encounter Location Date Provider Diagnosis Rory Tamez MD [address] [place] [address] [place] [phone] 05/27/2024 Rory Tamez Vision loss H54.7 Assessments Encounter Date Diagnosis (ICD Code) Assessment Notes Treatment Notes Treatment Clinical Notes Section Notes 05/27/2024 Vision loss (ICD-10 - H54.7) has had 2 episodes of this. sounds like a tia. never had a headache with it so am still concerned of embolic. will refer to dr murphy Plan Of Treatment Treatment Notes Assessment Notes Vision loss has had 2 episodes o f this. sounds like a tia. never had a headache with it so am still concerned of embolic. will refer to dr murphy Referrals Referral Date Details 05/27/2024 05/27/2024, V[facility] L [facility], Enrrique Katherine Next Appt Details Provider Name:Rory hess, 07/21/2025 07:45:00 AM, [address] [place] [address], [address] [place] [address], [phone], Provider Name:Rory hess, 07/28/2025 08:00:00 AM, [address] [place] [address], [place] [address], [place], [place], [phone], Progress Notes * ALYSSA HILL RDOB: [birth year] (63 yo M)Acc No.[id number]:05/27/2024 Progress Notes Patient: Kaden MARKDAVIDALYSSA Dela Cruz Provider: Yani Tamez MD :1960 A ge:63 Y S ex:Male Date:05/27/2024 Address:[address] [place] [address] Subjective: * Chief Complaints: * 2 month * HPI: S ymptom(s): patienti is a 63 yo male here for 2 month follow up visit, had a black out of vision. went to retinal expert and she didn't find aything. * ROS: G eneral/Constitutional: Denies C hills. D enies F atigue. D enies F ever. D enies H eadache. E NT: Patient denies d ecreased sense of smell, any loss of taste, sore throat. D enies S ore throat. R espiratory: Denies C ough. D enies S hortness of breath at rest. D enies S hortness of breath with exertion. G astrointestinal: Denies D iarrhea. D enies N ausea. M usculoskeletal: Patient denies m uscle aches. P eripheral Vascular: Patient denies r ed and blue toes. * Medical History: * Surgical History: * Hospitalization/Major Diagno stic Procedure: * Medications: T akingAspirin 81 81 MG Tablet Delayed Release 1 tablet Orally Once a day Claritin 10 MG Tablet 1 tablet Orally Once a day Fish Oil 1000 MG Capsule Delayed Release 1 capsule Orally Once a day Medication List reviewed and reconciled with the patientTaking Aspirin 81 81 MG Tablet Delayed Release 1 tablet Orally Once a day Taking Claritin 10 MG Tablet 1 tablet Orally Once a day Taking Fish Oil 1000 MG Capsule Delayed Release 1 capsule Orally Once a day Medication List reviewed and reconciled with the patient * Allergies: N .K.D.A.yes[Allergies Verified] Objective: * Vitals: H t: 69.5, Wt: 200, BMI:29.11, BP:128/80, Wt-k.72. * Examination: G eneral Examination: GENERAL APPEARANCE: w ell developed, well nourished. HEAD: n ormocephalic. SKIN: g ood turgor. HEART: r egular rate and rhythm, no murmurs, rubs, gallops.? Assessment: * Assessment: 1. V ision loss - H54.7 (Primary) Plan: * Treatment: * Procedure Codes: * * Sign off status: Completed true * Provider: Yani Tamez MD Date: 0 05/27/2024 Generated for Giuliana matias/Ally/eTransmitting on: 0 12/29/2024 08:39 AM EDT History and Physical Notes * HPI (History of Present Illness) Category Sub-Category Detail Notes Category Not es Symptom(s) patienti is a [age] yo male here for 2 month follow up visit, had a black out of vision. went to retinal expert and she didn't find aything Examination Category Sub-Category Detail Notes Category Not es General Examination GENERAL APPEARANCE: well developed , well nourished HEAD: normocephalic HEART: regular rate and rhy thm, no murmurs, rubs, gallops SKIN: good turgor Consultation Request Notes Referral Date Referring Provider Referred Provider Not es 05/27/2024 Rory Tamez Nirav VISION LOSS
--- OUTSIDE RECORDS SUMMARY | 2024-07-16 03:00 | XMS_ITS ---
Author Organization Rory Tamez MD Address [address] [place], [place] [id number] Care Team Providers Care Barrel Rib Matting Machine Operator Name Role Phone Rory Tamez Primary Care Provider [phone] Results Component Value Reference Range Notes Complete Blood Count Auto Di ff Reviewed date:07/16/2024 05:17:22 PM Interpretation: Performing Lab:[facility] [place], [address] [place] [phone] Notes/Report: White Blood Count 5.1 4.8-10.8 X10*3/uL [...] NRBC Abs Auto 0.000 0.0-0.012 X10*3/uL Comprehensive [place]. Panel Fa st Reviewed date:07/16/2024 05:16:56 PM Interpretation: Performing Lab:[facility] [place], [address] [place] [phone] Notes/Report: Sodium 138 135-145 mmol/L Potassium 4.2 [...] Panel Reviewed date:07/16/2024 05:11:31 PM Interpretation: Performing Lab:[facility] [place], [address] [place] [phone] Notes/Report: Triglycerides 68 <150 mg/dL Desirable Triglyceride: [...] (Free>4and<10) Reviewed date:07/16/2024 05:12:50 PM Interpretation: Performing Lab:[facility] [place], [address] [place] [phone] Notes/Report: PSA,Total (Free>4and<10) 1.08 0.00-4.00 ng/mL A [...] t Reviewed date:07/16/2024 05:12:41 PM Interpretation: Performing Lab:[facility] [place], [address] [place] [phone] Notes/Report: Urine, Clean Catch Color Urine Yellow Appearance Urine Clear PH 6.5 5.0-9.0 Glucose Urine UA Negative Negative mg/dL Urine Blood Negative Negative Specific [place] - Urine 1.015 1.005-1.025 Urine Protein Negative [...] Location Date Provider Diagnosis Rory Tamez MD [address] [place] [address] Drive [address] [place] [phone] 07/16/2024 Rory Tamez Blood tests for routine [...] Details Provider Name:Rory hess, 07/21/2025 07:45:00 AM, [address] [place] [address], [address] [place] [address], [phone], Provider Name:Rory hess, 07/28/2025 08:00:00 AM, [address] [place] [address], [address] [place] [address], [phone], Progress Notes * ALYSSA HILL RDOB: [birth year] (64 yo M)Acc No.[id number]:07/16/2024 Progress Note Patient: ALYSSA FLANAGAN Ketty Provider: Yani Tamez MD :1960 A ge:63 Y S ex:Male Date:07/16/2024 Address:[address] [place] [address] Subjective: * Chief Complaints: * 1 . [...] - 07/16/2024 07:00 AM) L AB: Comprehensive [place]. Panel Fast (Collection Date & Time - [...] - 07/16/2024 07:00 AM) L AB: Comprehensive [place]. Panel Fast (Collection Date & Time - [...] 07/16/2024 Generated for Giuliana salcedo/Ally/Vyitting on: 0 12/29/2024 08:39 AM EDT
--- OUTSIDE RECORDS SUMMARY | 2024-07-23 04:00 | XMS_ITS ---
Author Organization Rory Tamez MD Address [address] [place], [place] [id number] Care Team Providers Care Caustic Plant Worker Name Role Phone Rory Tamez Primary Care Provider [phone] Allergies No Known Allergies Results Component Value [...] Location Date Provider Diagnosis Rory Tamez MD [address] [place] [address] Drive [address] [place] [phone] 07/23/2024 Rory Tamez Essential (primary) hypertension I10 [...] Reason: Provider Name:Rory hess, 07/21/2025 07:45:00 AM, [address] [place] [address], Suite [facility], [place], [place], [phone], Provider Name:Rory hess, 07/28/2025 08:00:00 AM, [address] [place] [address], Suite [facility], [place], [place], [phone], Progress Notes * ALYSSA HILL RDOB: [birth year] (63 yo M)Acc No.[id number]:07/23/2024 Progress Notes Patient: ALYSSA FLANAGAN Provider: Yani Tamez MD :1960 A ge:63 Y S ex:Male Date:07/23/2024 Address:[address] [place] [address] Subjective: * Chief Complaints: * A nnual [...] Children: no. Community involvements: yes, belongs to [employer]. Exercise: no. Housing: owning. Living with: [...] Auto 0.000 0.0-0.012 - X10*3/uL L ab:Comprehensive [place]. Panel Fast (Order Date - 07/16/2024) (Collection [...] mg/dL Urine Blood Negative Negative - Specific [place] - Urine 1.015 1.005-1.025 - Urine Protein [...] 07/23/2024 Generated for Giuliana salcedo/Ally/Horace on: 0 12/29/2024 08:39 AM EDT History [...]
--- NOTE | 2024-12-29 08:23 | CA_ITS ---
Acquisition Time: 2024-12-29 08:48:18 Total Exercise Time: 00:10:00 Test Indications: FAMILY HX CAD TRANSIENT VISION LOSS+ Medications: ASA CETIRIZINE ATORVASTATIN Protocol: YOU Max HR: 166 BPM 107% of Pred: 155 BPM Max BP: 158/70 mmHG Max Work Load: 11.7 METS Exercise stress test with exercise 10 mins of You Protocol, achieving 95% MPHR, with reports of SOB, no chest pain, with frequent PACs and brief atrial runs - max 3 beats, with 2 vent couplets, with normotensive response to exercise. Without any EKG changes meeting criteria for ischemia. In recovery, breathing returned to baseline. Echo images obtained by rest and post peak exercise. Definity contrast utilized. Upon sitting up after images from layoimg down, pt reported some dizziness, no change in BP. Dizziness resolved. Test reviewed with Dr. Bar. Referred By: Enrrique Murphy Electronically Signed By: Dread Marcus
--- OUTSIDE RECORDS SUMMARY | 2024-12-29 08:39 | XMS_ITS | Patient Health Record ---
Author Organization [facility] Address [address] [place] [address] Care Team Providers Care Radiophone Operator Name Role Phone Rory Tamez MD Primary Care Provider Chilo Adam [phone] Allergies Allergen (clinical drug ingredient) Drug/Non Drug [...] Problem Status W/U Status Risk Notes Problem 893066085 Encounter for screening for malignant neoplasm of colon (Z12.11) Active confirmed Problem History of adenomatous polyp of colon (Z86.010) Active confirmed Problem Screening for malignant neoplasm of rectum (815643724) Encounter for screening for malignant neoplasm of rectum (Z12.12) Active confirmed Problem 30581327 Preprocedural examination (Z01.818) Active confirmed Problem History of colon polyps (Z86.010) Active confirmed Problem Diverticulosis of colon (222761903) Diverticulosis of colon (K57.30) Active confirmed Plan Of Treatment Future Test Test Name Order Date COLONOSCOPY 05/11/2015 COLONOSCOPY 11/06/2021 Insurance Providers Payer Name Payer Address Payer Phone Subscriber Number Group Number Insured Name Patient Relationship to Insured Coverage Start Date Coverage End Date [address] [address] [phone] [id number] ALYSSA HILL Self - patient is the insured Medical (General) History Medical History History ICD Code Denies [place],DM,CVA,Lung disease,renal dise ase Colonoscopy 08/2015 with a small tubular aenoma removed Surgical History Surgery Date(Month/Year) Hernia repair-left inguinal 1987 Hernia repair - right inguinal
--- OUTSIDE RECORDS SUMMARY | 2024-12-29 08:40 | XMS_ITS | Patient Health Record ---
Author Organization Rory Tamez MD Address [address] [place], [place] [id number] Care Team Providers Care Records Custodian Name Role Phone Rory Tamez Primary Care Provider Allergies No Known Allergies Results Component Value Reference Range Notes Lipid Panel Reviewed date:01/19/2024 12:43:42 PM Interpretation: Performing Lab:[facility], [address] [place] [phone] Notes/Report: Triglycerides 98 <150 mg/dL Desirable Triglyceride: [...] ff Reviewed date:07/16/2024 05:17:22 PM Interpretation: Performing Lab:[facility], [address] [place] [phone] Notes/Report: White Blood Count 5.1 4.8-10.8 X10*3/uL [...] NRBC Abs Auto 0.000 0.0-0.012 X10*3/uL Comprehensive [place]. Panel Fa st Reviewed date:07/16/2024 05:16:56 PM Interpretation: Performing Lab:[facility], [address] [place] [phone] Notes/Report: Sodium 138 135-145 mmol/L Potassium 4.2 [...] Panel Reviewed date:07/16/2024 05:11:31 PM Interpretation: Performing Lab:[facility], [address] [place] [phone] Notes/Report: Triglycerides 68 <150 mg/dL Desirable Triglyceride: [...] (Free>4and<10) Reviewed date:07/16/2024 05:12:50 PM Interpretation: Performing Lab:[facility], [address] [place] [phone] Notes/Report: PSA,Total (Free>4and<10) 1.08 0.00-4.00 ng/mL A [...] t Reviewed date:07/16/2024 05:12:41 PM Interpretation: Performing Lab:[facility], [address] [place] [phone] Notes/Report: Urine, Clean Catch Color Urine Yellow Appearance Urine Clear PH 6.5 5.0-9.0 Glucose Urine UA Negative Negative mg/dL Urine Blood Negative Negative Specific [place] - Urine 1.015 1.005-1.025 Urine Protein Negative [...] AM >THE REFERRAL HAS BEEN [place] [facility], Elicia Miranda 07/09/2024 01:09:35 PM >patient [...] Problem Status W/U Status Risk Notes Problem 57254517 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 Problem Essential hypertension (99186756) Essential (primary) hypertension (I10) Active confirmed Problem 452108557 Tubular adenoma of colon (D12.6) Active confirmed Problem 239477673 Vision loss (H54.7) Active confirmed Problem High cholesterol (E78.00) Active confirmed Problem 03811112 Hepatic cyst (K76.89) Active confirmed Problem 42233303638884 Lesion of tonsil (J35.9) Active confirmed Vital Signs Blood pressure diastolic 70 mm Hg 07/23/2024 Height 69.5 in 07/23/2024 Blood pressure systolic 132 mm Hg 07/23/2024 Weight 201 lbs 07/23/2024 BMI 29.25 kg/m2 07/23/2024 Encounters Encounter Location Date Provider Diagnosis Rory Tamez MD [address] [place] [id number] 01/19/2024 Rory Tamez High cholesterol E78.00 Rory Tamez MD [address] [place] [address] [id number] 07/16/2024 Rory Tamez Blood tests for routine general physical examination Z00.00 ; Essential (primary) hypertension I10 and High cholesterol E78.00 Rory Tamez MD [address] [facility] [address] [id number] 03/04/2024 Rory Tamez Amaurosis fugax G45. [address] Tame[address] [place] [id number] 03/29/2024 Rory Tamez Hepatic cyst K76.89 and Vision loss H54.7 Rory Tamez MD [address] [place] [address] [address] [id number] 05/27/2024 Rory Tamez Vision loss H54.7 Rory Tamez MD [address] [place] [address] [id number] 07/23/2024 Rory Tamez Essential (primary) hypertension I10 ; Annual physical exam Z00.00 ; High cholesterol E78.00 ; Amaurosis fugax G45.3 ; Colon cancer screening Z12.11 and Depression screening Z13.31 Rory Tamez MD [address] [place] [address] [place] [id number] 03/11/2024 Rory Tamez Foreign body sensation, bilateral eyes H57.8A3 Assessments Encounter Date Diagnosis (ICD Code) Assessment Notes Treatment Notes Treatment Clinical Notes Section Notes 01/19/2024 High cholesterol (ICD-10 - E78.00) 07/16/2024 Blood tests for routine general physical examination (ICD-10 - Z00.00) 03/04/2024 Amaurosis fugax (ICD-10 - G45.3) aspirin 81 mg daily MRA order faxed to [facility] / Echo order faxed [place] [facility] [place], pending diagnostic testing 03/29/2024 Hepatic [...] limited 03/29/2024 Next Appt Details Provider Name:Rory Arias ier, 07/21/2025 07:45:00 AM, [address], [address], [place], [place], [id number], Provider Name:Rory Arias ier, 07/28/2025 08:00:00 AM, [address], [address], [place], [place], [id number], Insurance Providers Payer Name Payer Address Payer Phone Subscriber Number Group Number Insured Name Patient Relationship to Insured Coverage Start Date Coverage End Date [facility] [employer] [facility] [employer] [facility] [place] [address] [place] [address] [id number] ALYSSA HILL Self - patient is the insured Medical (General) History Medical History History ICD Code colonoscopy done 08/07/15 w/Dr Kay Bennett - repeat either 5yrs due (2020); Colonoscopy 12/17/21 due 5yr( 2026) Surgical History Surgery Date(Month/Year) Repair Rt Inguinal Hernia w/Mesh 05/2017
== END ==
LOC: HO.CARD 08:18
PROVIDERS: PCP Internal Medicine; Visit Provider Internal Medicine Cardiovascular Disease
DX: I25.10 Atherosclerotic heart disease of native coronary artery without angina pectoris (principal)
CPT/HCPCS: 93350; Q9957

== ENCOUNTER → 2024-12-29 08:23 | Outpatient (BNV) | payer MEDICARE, OTHER, SELFPAY | PROVIDERS: PCP Internal Medicine | DX: R06.02 Shortness of breath (principal); I49.1 Atrial premature depolarization | CPT/HCPCS: 93016; 93018; 93350; 93352 ==

== ENCOUNTER 2025-01-19 11:13 | Outpatient (AMB) | payer OTHER, SELFPAY ==
--- OUTSIDE RECORDS SUMMARY | 2024-03-11 06:43 | XMS_ITS ---
Author Organization Rory Tamez MD Address [address] [place], [place] [phone] Care Team Providers Care Plant Technician/Control Room Operator Name Role Phone Rory Tamez Primary Care Provider [phone] REASON FOR VISIT pt needs Obits x-ray Encounters Encounter Location Date Provider Diagnosis Rory Tamez MD [address] [place] [phone] 03/11/2024 Rory Tamez Foreign body sensation, bilateral eyes H57.8A3 Assessments Encounter Date Diagnosis (ICD Code) Assessment Notes Treatment Notes Treatment Clinical Notes Section Notes 03/11/2024 Foreign body sensation, bilateral eyes (ICD-10 - H57.8A3) order faxed tp [facility] Plan Of Treatment Treatment Notes Assessment Notes Foreign body sensation, bilateral eyes o rder faxed tp [facility] Pending Test Test Name Order Date XR ORBITS FOR FOREIGN BODY 03/11/2024 Next Appt Details Provider Name:Rory hess, 07/21/2025 07:45:00 AM, [address], [address], [place], [place], [phone], Provider Name:Rory hess, 07/28/2025 08:00:00 AM, [address], [address], [place], [place], [phone], Progress Notes * ALYSSA HILL RDOB: [birth year] (63 yo M)Acc No.[id number]:03/11/2024 Patient: ALYSSA FLANAGAN :1960 A ge:63 Y S ex:Male Address:[address] [place] [address], [place] [address] Subjective: * Chief Complaints: * p t needs Obits x-ray * Medical History: * Surgical History: * Hospitalization/Major Diagno stic Procedure: * Medications: Objective: Assessment: * Assessment: 1. F oreign body sensation, bilateral eyes - H57.8A3 Plan: * Treatment: * Procedure Codes: * true * Date: Generated for Giuliana salcedo/Ally/Jessicasmitting on: 0 01/19/2025 02:26 PM EDT
--- OUTSIDE RECORDS SUMMARY | 2024-03-29 07:15 | XMS_ITS ---
Author Organization Rory Tamez MD Address [address] [place] [phone] Care Team Providers Care Fnp Name Role Phone Rory Tamez Primary Care Provider Allergies No Known Allergies REASON FOR VISIT 4 week Medications Medication SIG (Take, Route, Fr equency, Duration) Notes Start Date End Date Status Fish Oil 1000 MG 1 capsule Orally Once a day Active Claritin 10 MG 1 tablet Orally Once a day Active Problems Problem Type SNOMED Code ICD Code Onset Dates Problem Status W/U Status Risk Notes Problem [id number] Hepatic cyst (K76.89) Active confirmed Problem [id number] Vision loss (H54.7) Active confirmed Vital Signs Blood pressure systolic 124 mm Hg 03/29/20 24 Blood pressure diastolic 78 mm Hg 024 Height 69.5 in 03/29/2024 Weight 198 lbs 03/29/2024 BMI 28.82 kg/m2 03/29/2024 Encounters Encounter Location Date Provider Diagnosis Rory Tamez MD [address] [place] [phone] 03/29/2024 Rory Tamez Hepatic cyst K76.89 and Vision loss H54.7 Assessments Encounter Date Diagnosis (ICD Code) Assessment Notes Treatment Notes Treatment Clinical Notes Section Notes 03/29/2024 Hepatic cyst (ICD-10 - K76.89) there was no mention of a cyst on the cat scan preop in october. need the results of that please/ ABD US order faxed to [facility]/ report scanned in chart/ per provider no need for test to be done. 03/29/2024 Vision loss (ICD-10 - H54.7) has had this few. times and lasted only one minute has had this in last few weeks. discussed results of recent testing with patient, had negative echo and mra so doesn't sound emboloic. make copy of the mra and echo for him to take to ophthalmonogist Plan Of Treatment Treatment Notes Assessment Notes Hepatic cyst there was no mention of a cyst on the cat scan preop in october. need the results of that please/ ABD US order faxed to [facility]/ report scanned in chart/ per provider no need for test to be done. Vision loss has had this few. ti mes and lasted only one minute has had this in last few weeks. discussed results of recent testing with patient, had negative echo and mra so doesn't sound emboloic. make copy of the mra and echo for him to take to ophthalmonogist Pending Test Test Name Order Date US abdomen limited 03/29/2024 Next Appt Details Follow Up: 2 Months, Reason: Provider Name:Rory hess, 07/21/2025 07:45:00 AM, [address] [place] [address], [address], [phone], Provider Name:Rory hess, 07/28/2025 08:00:00 AM, [address] [place] [address], Suite [facility], [place], [place], [phone], Progress Notes * ALYSSA HILL RDOB: [birth year] (63 yo M)Acc No.[id number]:03/29/2024 Progress Notes Patient: ALYSSA FLANAGAN Provider: Yani Tamez MD :1960 A ge:63 Y S ex:Male Date:03/29/2024 Address:[address] [place] [address] [id number] Subjective: * Chief Complaints: * 4 week * HPI: S ymptom(s): patient is a 63 yo male here for 4 week follow up visit. * ROS: G eneral/Constitutional: Denies C hills. D enies F atigue. D enies F ever. D enies H eadache. E NT: Patient denies d ecreased sense of smell , any loss of taste , sore throat. R espiratory: Denies C ough. D enies S hortness of breath at rest. D enies S hortness of breath with exertion. G astrointestinal: Denies D iarrhea. D enies N ausea. M usculoskeletal: Patient denies m uscle aches. P eripheral Vascular: Patient denies r ed and blue toes. * Medical History: * Surgical History: * Hospitalization/Major Diagno stic Procedure: * Medications: T akingClaritin 10 MG Tablet 1 tablet Orally Once a dayFish Oil 1000 MG Capsule Delayed Release 1 capsule Orally Once a dayTaking Claritin 10 MG Tablet 1 tablet Orally Once a dayTaking Fish Oil 1000 MG Capsule Delayed Release 1 capsule Orally Once a day * Allergies: N .K.D.A.yes[Allergies Verified] Objective: * Vitals: H t: 69.5, Wt:198, BMI:28.82, BP:124/78, Wt-k.81. * Examination: G eneral Examination: GENERAL APPEARANCE: a lert, well hydrated, in no distress.? SKIN: g ood turgor. HEART: n o murmurs, rubs, gallops , regular rate and rhythm. LUNGS: n o wheezes, rales, rhonchi , good air movement , clear to auscultation bilaterally. Assessment: * Assessment: 1. H epatic cyst - K76.89 (Primary) 2 . V ision loss - H54.7 Plan: * Treatment: 2. V ision loss Notes: has had this few. times and lasted only one minute has had this in last few weeks. discussed results of recent testing with patient, had negative echo and mra so doesn't sound emboloic. make copy of the mra and echo for him to take to ophthalmonogist * Procedure Codes: * Follow Up: 2 Months * * Sign off status: Completed true * Provider: Yani Tamez MD Date: 05/29/2023 Generated for Giuliana salcedo/Ally/Vyitting on: 0 01/19/2025 02:26 PM EDT History and Physical Notes * HPI (History of Present Illness) Category Sub-Category Detail Notes Category Not es Symptom(s) patient is a 63 yo male here for 4 week follow up visit. Examination Category Sub-Category Detail Notes Category Not es General Examination GENERAL APPEARANCE: alert, w ell hydrated, in no distress HEART: no murmurs, rubs, ga llops , regular rate and rhythm LUNGS: no wheezes, rales, r honchi , good air movement , clear to auscultation bilaterally SKIN: good turgor
--- OUTSIDE RECORDS SUMMARY | 2024-05-27 06:45 | XMS_ITS ---
Author Organization Rory Tamez MD Address [address] [place], [place] [phone] Care Team Providers Care Dental Claims Processor Name Role Phone Rory Tamez Primary Care [...] AM >THE REFERRAL HAS BEEN FAXED TO [facility] [place] [place] [facility], Elicia Miranda 07/09/2024 01:09:35 PM >patient [...] Location Date Provider Diagnosis Rory Tamez MD [address] [place] [address] [place] [phone] 05/27/2024 Rory Tamez Vision loss H54.7 Assessments [...] Details Provider Name:Rory hess, 07/21/2025 07:45:00 AM, [address] [place] [address], [address] [place] [address], [phone], Provider Name:Rory hess, 07/28/2025 08:00:00 AM, [address] [place] [address], [place] [address], [place], [place], [phone], Progress Notes * ALYSSA HILL RDOB: [birth year] (63 yo M)Acc No.[id number]:05/27/2024 Progress Notes Patient: Kaden MARKDAVIDALYSSA Dela Cruz Provider: Yani Tamez MD :1960 A ge:63 Y S ex:Male Date:05/27/2024 Address:[address] [place] [address] Subjective: * Chief Complaints: * 2 month [...] 05/27/2024 Generated for Giuliana matias/Ally/eTransmitting on: 0 01/19/2025 02:26 PM EDT History [...]
--- OUTSIDE RECORDS SUMMARY | 2024-07-16 03:00 | XMS_ITS ---
Author Organization Rory Tamez MD Address [address] [place], [place] [id number] Care Team Providers Care Shipping Agent Name Role Phone Rory Tamez Primary Care Provider Results Component Value Reference Range Notes Complete Blood Count Auto Di ff Reviewed date:07/16/2024 05:17:22 PM Interpretation: Performing Lab:[facility], [address] [place] [phone] Notes/Report: White Blood Count 5.1 4.8-10.8 X10*3/uL Red Blood Count 5.16 4.60-5.80 X10*6/uL Hemoglobin 14.9 14.0-18.0 g/dl Hematocrit 43.4 42.0-52.0 % Mean Corpuscular Volume 84.1 80.0-98.0 fL Mean Corpuscular Hemoglobin 28.9 27.0-33.0 pg Mean Corpuscular HGB Conc 34.3 31.0-36.0 g/dl Red Cell Distribution Width 13.0 11.0-16.0 % Platelet Count 214 160-400 X10*3/uL Mean Platelet Volume 11.6 9.4-12.4 fL Neutrophils Percent Auto 53.9 45-73 % Imm Gran Pct Auto 0.0 0.0-0.4 % Lymphocytes Percent Auto 31.1 20-40 % Monocytes Percent Auto 11.1 2-11 % Eosinophils Percent Auto 2.9 0-4 % Basophils Percent Auto 1.0 0-2 % NRBC Pct Auto 0.0 0.0-0.2 /100WBC Neutrophils Absolute Auto 2.8 2.0-8.3 x10*3/u L Imm Gran Abs Auto 0.00 0.00-0.03 X10*3/uL Lymphocytes Absolute Auto 1.6 1.2-4.9 X10*3/u L Monocytes Absolute Auto 0.6 0.1-1.2 X10*3/uL Eosinophils Absolute Auto 0.2 0.0-0.4 X10*3/u L Basophils Absolute Auto 0.1 0.0-0.2 X10*3/uL NRBC Abs Auto 0.000 0.0-0.012 X10*3/uL Comprehensive [place]. Panel Fa st Reviewed date:07/16/2024 05:16:56 PM Interpretation: Performing Lab:[facility], [address] [place] [phone] Notes/Report: Sodium 138 135-145 mmol/L Potassium 4.2 3.3-5.1 mmol/L Chloride 107 96-108 mmol/L Carbon Dioxide 25 22-29 mmol/L Anion Gap 10 12-20 Blood Urea Nitrogen 15 9-16 mg/dL Creatinine 0.88 0.5-1.4 mg/dL Estimated Glomerular Filt Rate > 60 Chronic Kidney Disease: Estimated GFR < 60 mL/min/1.73m2 Severe Kidney Disease: Estimated GFR < 15 mL/min/1.73m2 Glucose Fasting 90 60-99 mg/dL Calcium 8.8 8.4-10.2 mg/dL Bilirubin Total 0.8 0.0-1.0 mg/dL Aspartate Amino Transferase 27 5-37 U/L Alanine Aminotransferase 32 0-40 U/L Total Protein 7.4 6.5-8.0 g/dL Albumin Level 4.0 3.5-5.0 g/dL Alkaline Phosphatase 67 39-117 U/L Lipid Panel Reviewed date:07/16/2024 05:11:31 PM Interpretation: Performing Lab:[facility], [address] [place] [phone] Notes/Report: Triglycerides 68 <150 mg/dL Desirable Triglyceride: less than 150 mg/dL Borderline High Triglyceride 150-199 mg/dL High Triglyceride: 200-499 mg/dL Very High Triglyceride: greater than or equal to 5OO mg/dL Cholesterol 211 <200 mg/dL Desirable Cholesterol: less than 200 mg/dL Borderline High Cholesterol: 200-239 mg/dL High Cholesterol: greater than 239 mg/dL LDL Cholesterol Calculated 143 <100 mg/dL Desirable LDL: less than 100 mg/dL Near Optimal/Above Optimal LDL: 110-129 mg/dL Borderline High LDL: 130-159 mg/dL High LDL: 160-189 mg/dL Very High LDL: greater than or equal to 190 mg/dL HDL Cholesterol 55 >40 mg/dL Desirable HDL: greater than 40 mg/dL Note: This HDL assay may give artificially low results in patients with liver disease. PSA,Total (Free>4and<10) Reviewed date:07/16/2024 05:12:50 PM Interpretation: Performing Lab:[facility], [address] [place] [phone] Notes/Report: PSA,Total (Free>4and<10) 1.08 0.00-4.00 ng/mL A Free PSA was not performed: The percentage of Free PSA can be used to enhance the differentiation of prostate cancer from benign prostatic disease in subjects whose PSA levels are between 4.0 and 10.0 ng/mL. For subjects whose PSA levels are below 4.0 or above 10.0 ng/mL, the risk of prostate cancer is determined on the basis of the PSA alone. Therefore the % Free PSA is recommended only for those subjects whose PSA levels are between 4.0 and 10.0 ng/mL. PSA methodology: Méndez Alinity i Chemiluminescent Microparticle Immunoassay (CMIA) UA ClnCatch+Micro w/rflx Cul t Reviewed date:07/16/2024 05:12:41 PM Interpretation: Performing Lab:[facility], [address] [place] [phone] Notes/Report: Urine, Clean Catch Color Urine Yellow Appearance Urine Clear PH 6.5 5.0-9.0 Glucose Urine UA Negative Negative mg/dL Urine Blood Negative Negative Specific [place] - Urine 1.015 1.005-1.025 Urine Protein Negative Neg-Trace mg/dL Urine Ketones Negative Negative mg/dL Nitrite Urine Negative Negative Leukocyte Esterase Urine Negative Negative RBC Urine 0-2 0-2 /HPF WBC Urine 0-5 0-5 /HPF Squamous Epithelial Cell Urine 0-2 0-2 /HPF Bacteria Urine None Seen None Seen Hyaline Casts Urine 0-2 0-2 /LPF REASON FOR VISIT yearly fasting labs Encounters Encounter Location Date Provider Diagnosis Rory Tamez MD [address] [place] [address] Drive [address] [place] [phone] 07/16/2024 Rory Tamez Blood tests for routine general physical examination Z00.00 ; Essential (primary) hypertension I10 and High cholesterol E78.00 Assessments Encounter Date Diagnosis (ICD Code) Assessment Notes Treatment Notes Treatment Clinical Notes Section Notes 07/16/2024 Blood tests for routine general physical examination (ICD-10 - Z00.00) 07/16/2024 Essential (primary) hypertension (ICD-10 - I10) 07/16/2024 High cholesterol (ICD-10 - E78.00) Plan Of Treatment Next Appt Details Provider Name:Rory hess, 07/21/2025 07:45:00 AM, [address] [place] [address], [address] [place] [address], [phone], Provider Name:Rory hess, 07/28/2025 08:00:00 AM, [address] [place] [address], [address] [place] [address], [phone], Progress Notes * ALYSSA HILL RDOB: [birth year] (64 yo M)Acc No.[id number]:07/16/2024 Progress Note Patient: ALYSSA FLANAGAN Ketty Provider: Yani Tamez MD :1960 A ge:63 Y S ex:Male Date:07/16/2024 Address:[address] [place] [address] Subjective: * Chief Complaints: * 1 . Yearly fasting labs. * Medical History: Objective: * Vitals: Assessment: * Assessment: 1. B lood tests for routine general physical examination - Z00.00 (Primary) 2 .?Essential (primary) hypertension - I10 3 . H igh cholesterol - E78.00 Plan: * Treatment: 2. E ssential (primary) hypertension L AB: Complete Blood Count Auto Diff (Collection Date & Time - 07/16/2024 07:00 AM) L AB: Comprehensive [place]. Panel Fast (Collection Date & Time - 07/16/2024 07:00 AM) L AB: Lipid Panel (Collection Date & Time - 07/16/2024 07:00 AM) L AB: PSA,Total (Free>4and<10) (Collection Date & Time - 07/16/2024 07:00 AM) L AB: UA ClnCatch+Micro w/rflx Cult (Collection Date & Time - 07/16/2024 07:00 AM) 3. H igh cholesterol L AB: Complete Blood Count Auto Diff (Collection Date & Time - 07/16/2024 07:00 AM) L AB: Comprehensive [place]. Panel Fast (Collection Date & Time - 07/16/2024 07:00 AM) L AB: Lipid Panel (Collection Date & Time - 07/16/2024 07:00 AM) L AB: PSA,Total (Free>4and<10) (Collection Date & Time - 07/16/2024 07:00 AM) L AB: UA ClnCatch+Micro w/rflx Cult (Collection Date & Time - 07/16/2024 07:00 AM) * Procedure Codes: 3 6415 VENIPUNCT, ROUTINE* * * The named appointment provid er may or may not be the originator of this progress note, and it is not deemed complete until electronically signed by the appointment provider. Sign off status: Pending * Provider: Yani Tamez MD Date: 0 07/16/2024 Generated for Giuliana salcedo/Ally/Vyitting on: 0 01/19/2025 02:27 PM EDT
--- OUTSIDE RECORDS SUMMARY | 2024-07-23 04:00 | XMS_ITS ---
Author Organization Rory Tamez MD Address [address] [place], [place] [address] Care Team Providers Care Ink Technician Name Role Phone Rory Tamez Primary Care Provider [phone] Allergies No Known Allergies Results Component Value Reference Range Notes Occult Blood, Stool, Guaiac Reviewed date:07/23/2024 10:54:26 AM Interpretation:Negative Performing Lab: Notes/Report: Negative Occult Blood, Stool, Guaiac Neg REASON FOR VISIT annual visit Medications Medication SIG (Take, Route, Fr equency, Duration) Notes Start Date End Date Status Fish Oil 1000 MG 1 capsule Orally Once a day Active Aspirin 81 81 MG 1 tablet Orally Once a day Active Claritin 10 MG 1 tablet Orally Once a day Active Social History Tobacco Use: Social History Observation Description Date Details (start date - stop date) Former Smoker NA - NA Tobacco Use/Smoking Question Answer Notes Patient is a former smoker How long has it been since y ou last smoked? > 10 years Additional Findings: Tobacco Non-User Fo rmer smoker, currently using no form of tobacco AUDIT-C (Standard) Question Answer Notes Did you have a drink containing alcohol in the p ast year? No Points 0 Interpretation Negative Vital Signs Blood pressure systolic 132 mm Hg 03/21/20 25 Blood pressure diastolic 70 mm Hg 025 Height 69.5 in 07/23/2024 Weight 201 lbs 07/23/2024 BMI 29.25 kg/m2 07/23/2024 Encounters Encounter Location Date Provider Diagnosis Rory Tamez MD [address] [place] [address] Drive [address] [place] [id number] 07/23/2024 Rory Tamez Essential (primary) hypertension I10 ; Annual physical exam Z00.00 ; High cholesterol E78.00 ; Amaurosis fugax G45.3 ; Colon cancer screening Z12.11 and Depression screening Z13.31 Assessments Encounter Date Diagnosis (ICD Code) Assessment Notes Treatment Notes Treatment Clinical Notes Section Notes 07/23/2024 Essential (primary) hypertension (ICD-10 - I10) doing well, will continue current regiment 07/23/2024 Annual physical exam (ICD-10 - Z00.00) labs reviewed and discussed with patient 07/23/2024 High cholesterol (ICD-10 - E78.00) not high enough to treat, will continue to monitor 07/23/2024 Amaurosis fugax (ICD-10 - G45.3) not having any episodes, will continue to monitor 07/23/2024 Colon cancer screening (ICD-10 - Z12.11) guaiac negative 07/23/2024 Depression screening (ICD-10 - Z13.31) negative screen Plan Of Treatment Treatment Notes Assessment Notes Essential (primary) hypertension doing w ell, will continue current regiment Annual physical exam labs reviewed and d iscussed with patient High cholesterol not high enough to t reat, will continue to monitor Amaurosis fugax not having any episo jesus manuel, will continue to monitor Colon cancer screening guaiac negative Depression screening negative screen Next Appt Details Follow Up: 1 Year, Reason: Provider Name:Rory hess, 07/21/2025 07:45:00 AM, [address] [place] [address], Suite [facility], [place], [place], [phone], Provider Name:Rory hess, 07/28/2025 08:00:00 AM, [address] [place] [address], Suite [facility], [place], [place], [phone], Progress Notes * ALYSSA HILL RDOB: [birth year] (63 yo M)Acc No.[id number]:07/23/2024 Progress Notes Patient: ALYSSA FLANAGAN Provider: Yani Tamez MD :1960 A ge:63 Y S ex:Male Date:07/23/2024 Address:[address] [place] [address] Subjective: * Chief Complaints: * A nnual visit * HPI: D epression Screening: PHQ-9 L ittle interest or pleasure in doing things N ot at all, F eeling down, depressed, or hopeless N ot at all, T rouble falling or staying asleep, or sleeping too much N ot at all, F eeling tired or having little energy N ot at all, P oor appetite or overeating N ot at all, F eeling bad about yourself or that you are a failure, or have let yourself or your family down N ot at all, T rouble concentrating on things, such as reading the newspaper or watching television N ot at all, M oving or speaking so slowly that other people could have noticed; or the opposite, being so fidgety or restless that you have been moving around a lot more than usual N ot at all, T houghts that you would be better off or of hurting yourself in some way N ot at all, T otal Score 0 . I nterpretation and Intervention D epression Screening Findings N egative, F ollow-Up for Depression : review of PHQ-9 found negative result, no follow-up needed. C ommunication Needs: Communication Needs D oes the patient have a hearing impairment N o, D oes the patient have a vision impairment? Y es, I f yes, what is the vision impairment? G lasses, D oes the patient have a cognition impairment? N o. S YONI Questions: SDOH Questions I n the past year have you been worried about losing housing? N o, I n the past year have you or any family members you live with been unable to get any of the following when it was really needed? Check all that apply: N one. S ymptom(s): patient is a 63 yo male here for annual visit with review of recent labs and follow up of chronic issues.. doing well. has been lifting weight. * ROS: G eneral/Constitutional: Change in appetite d enies. C hills d enies. F ever d enies. O phthalmologic: Blurred vision d enies. D ischarge d enies. P ain d enies. E NT: Decreased hearing d enies. S ore throat d enies.?Swollen glands d enies. E ndocrine: Cold intolerance d enies. E xcessive thirst d enies. H eat intolerance d enies. W eight loss d enies. R espiratory: Cough d enies. S hortness of breath at rest d enies. S hortness of breath with exertion d enies. W heezing d enies. C ardiovascular: Chest pain at rest d enies. C hest pain with exertion?denies. I rregular heartbeat d enies. S hortness of breath d enies. ? G astrointestinal: Abdominal pain d enies. C hange in bowel habits d enies. D iarrhea d enies. N ausea d enies. R ectal bleeding d enies. V omiting d enies . G enitourinary: Blood in urine d enies. D ifficulty urinating d enies. F requent urination d enies. M usculoskeletal: Painful joints d enies. W eakness d enies. ? S kin: Dry skin d enies. I tching d enies. D enies?Mole(s), changes in moles, new moles or any lesions of concern. D enies P hotosensitivity. R estefanía d enies. N eurologic: Dizziness d enies. F ainting d enies. H eadache?denies. * Medical History: * Surgical History: * Hospitalization/Major Diagno stic Procedure: * Family History: F ather: 67 yrs, diagnosed with CHF. M other: 78 yrs, diagnosed with Cancer. 2 brother(s) , 2 sister(s) . . Denies mental health/substance abuse family history, Denies mental health/substance abuse family history, Denies mental health/substance abuse family history. * Social History: T obacco Use: T obacco Use/Smoking P atient is a f ormer smoker, H ow long has it been since you last smoked? > 10 years, A dditional Findings: Tobacco Non-User F ormer smoker, currently using no form of tobacco. M iscellaneous: C affeine: yes, 3-4 cups per day. Children: no. Community involvements: yes, belongs to [employer]. Exercise: no. Housing: owning. Living with: spouse. Marital status: . Occupation: works full-time. Pets: dogs x3. Travel outside of the [place]: no. D rug/Alcohol: A ARGELIA-C (Standard) D id you have a drink containing alcohol in the past year? N o, P oints 0 , I nterpretation N egative. * Medications: T akingAspirin 81 81 MG [...] Objective: * Vitals: H t: 69.5, Wt: 201, BMI:29.25, BP:132/70, Wt-k.17. * P ast Orders: L ab:Complete Blood Count Auto Diff (Order Date - 07/16/2024) (Collection Date & Time - 07/16/2024 07:00 AM) Value Reference Range White Blood Count 5.1 4.8-10.8 - X10*3/uL Red Blood Count 5.16 4.60-5.80 - X10*6/uL Hemoglobin 14.9 14.0-18.0 - g/dl Hematocrit 43.4 42.0-52.0 - % Mean Corpuscular Volume 84.1 80.0-98.0 - fL Mean Corpuscular Hemoglobin 28.9 27.0-33.0 - pg Mean Corpuscular HGB Conc 34.3 31.0-36.0 - g/ dl Red Cell Distribution Width 13.0 11.0-16.0 - % Platelet Count 214 160-400 - X10*3/uL Mean Platelet Volume 11.6 9.4-12.4 - fL Neutrophils Percent Auto 53.9 45-73 - % Imm Gran Pct Auto 0.0 0.0-0.4 - % Lymphocytes Percent Auto 31.1 20-40 - % Monocytes Percent Auto 11.1 H 2-11 - % Eosinophils Percent Auto 2.9 0-4 - % Basophils Percent Auto 1.0 0-2 - % NRBC Pct Auto 0.0 0.0-0.2 - /100WBC Neutrophils Absolute Auto 2.8 2.0-8.3 - x10* 3/uL Imm Gran Abs Auto 0.00 0.00-0.03 - X10*3/uL Lymphocytes Absolute Auto 1.6 1.2-4.9 - X10* 3/uL Monocytes Absolute Auto 0.6 0.1-1.2 - X10*3/ uL Eosinophils Absolute Auto 0.2 0.0-0.4 - X10* 3/uL Basophils Absolute Auto 0.1 0.0-0.2 - X10*3/ uL NRBC Abs Auto 0.000 0.0-0.012 - X10*3/uL L ab:Comprehensive [place]. Panel Fast (Order Date - 07/16/2024) (Collection Date & Time - 07/16/2024 07:00 AM) Value Reference Range Sodium 138 135-145 - mmol/L Bilirubin Total 0.8 0.0-1.0 - mg/dL Aspartate Amino Transferase 27 5-37 - U/L Alanine Aminotransferase 32 0-40 - U/L Total Protein 7.4 6.5-8.0 - g/dL Albumin Level 4.0 3.5-5.0 - g/dL Alkaline Phosphatase 67 39-117 - U/L Potassium 4.2 3.3-5.1 - mmol/L Chloride 107 96-108 - mmol/L Carbon Dioxide 25 22-29 - mmol/L Anion Gap 10 L 12-20 - Blood Urea Nitrogen 15 9-16 - mg/dL Creatinine 0.88 0.5-1.4 - mg/dL Estimated Glomerular Filt Rate > 60 - Glucose Fasting 90 60-99 - mg/dL Calcium 8.8 8.4-10.2 - mg/dL L ab:Lipid Panel (Order Date - 07/16/2024) (Collection Date & Time - 07/16/2024 07:00 AM) Value Reference Range Triglycerides 68 <150 - mg/dL Cholesterol 211 H <200 - mg/dL LDL Cholesterol Calculated 143 H <100 - mg/dL HDL Cholesterol 55 >40 - mg/dL L ab:PSA,Total (Free>4and<10) (Order Date - 07/16/2024) (Collection Date & Time - 07/16/2024 07:00 AM) Value Reference Range PSA,Total (Free>4and<10) 1.08 0.00-4.00 - ng/ mL L ab:UA ClnCatch+Micro w/rflx Cult (Order Date - 07/16/2024) (Collection Date & Time - 07/16/2024 07:00 AM) Value Reference Range Color Urine Yellow - Appearance Urine Clear - PH 6.5 5.0-9.0 - Glucose Urine UA Negative Negative - mg/dL Urine Blood Negative Negative - Specific [place] - Urine 1.015 1.005-1.025 - Urine Protein Negative Neg-Trace - mg/dL Urine Ketones Negative Negative - mg/dL Nitrite Urine Negative Negative - Leukocyte Esterase Urine Negative Negative - RBC Urine 0-2 0-2 - /HPF WBC Urine 0-5 0-5 - /HPF Squamous Epithelial Cell Urine 0-2 0-2 - /HP F Bacteria Urine None Seen None Seen - Hyaline Casts Urine 0-2 0-2 - /LPF * Examination: G eneral Examination: GENERAL APPEARANCE: w ell developed, well nourished, in no acute distress. HEAD: n ormocephalic, atraumatic. EYES: p upils equal, round, reactive to light and accommodation, sclera non-icteric. EARS: n ormal. ORAL CAVITY: m ucosa moist. THROAT: c lear. NECK/THYROID: n maggie supple, full range of motion, no cervical lymphadenopathy, no bruits. SKIN: w arm and dry, no suspicious lesions. HEART: r egular rate and rhythm, S1, S2 normal, no murmurs.? LUNGS: c lear to auscultation bilaterally. ABDOMEN: s oft, nontender, nondistended, bowel sounds present, normal, no organomegaly , no masses palpable. RECTAL EXAM: n ormal tone, no external hemorrhoids, no masses palpable, prostate normal, stool guaiac negative. MALE GENITOURINARY: n ot examined, uncircumcised, testes descended bilaterally, no testicular mass. EXTREMITIES: n o clubbing, cyanosis, or edema. NEUROLOGIC: n onfocal, motor strength normal upper and lower extremities, sensory exam intact. Assessment: * Assessment: 1. A nnual physical exam - Z00.00 (Primary) 2 . E ssential (primary) hypertension - I10 3 . H igh cholesterol - E78.00 4 . A maurosis fugax - G45.3 5 . C olon cancer screening - Z12.11 6 . D epression screening - Z13.31 Plan: * Treatment: 2. E ssential (primary) hypertension Notes: doing well, will continue current regiment 3. H igh cholesterol Notes: not high enough to treat, will continue to monitor 4. A maurosis fugax Notes: not having any episodes, will continue to monitor 5. C olon cancer screening L AB: Occult Blood, Stool, Guaiac (Collection Date & Time - 07/23/2024) N egative Value Reference Range O ccult Blood, Stool, Guaiac Neg Notes: guaiac negative??6.?Depression screening? Notes: negative screen?? * Procedure Codes: 8 2270 TEST FOR BLOOD, FECES * Preventive Medicine: Counseling: C are goal follow-up plan: C ounseling for abnormal BMI provided?Yes, A francisco Normal BMI Follow-up G lj encouragement to exercise. * Follow Up: 1 Year * * Sign off status: Completed true * Provider: Yani Tamez MD Date: 0 07/23/2024 Generated for Giuliana salcedo/Ally/Horace on: 0 01/19/2025 02:25 PM EDT History and Physical Notes * HPI (History of Present Illness) Category Sub-Category Detail Notes Category Not es Symptom(s) patient is a 63 yo male here for annual visit with review of recent labs and follow up of chronic issues.. doing well. has been lifting weight. Depression Screening PHQ-9 Little inte rest or pleasure in doing things: Not at all Feeling down, depressed, or hopeless: No t at all Trouble falling or staying asleep, or sl eeping too much: Not at all Feeling tired or having little energy: N ot at all Poor appetite or overeating: Not at all Feeling bad about yourself o r that you are a failure, or have let yourself or your family down: Not at all Trouble concentrating on thi ngs, such as reading the newspaper or watching television: Not at all Moving or speaking so slowly that other people could have noticed; or the opposite, being so fidgety or restless that you have been moving around a lot more than usual: Not at all Thoughts that you would be b miguel off or of hurting yourself in some way: Not at all Total Score: 0 Interpretation and Intervention Depression Yanet fry Findings: Negative Follow-Up for Depression: : review of PH Q-9 found negative result, no follow-up needed SDOH Questions SDOH Questions In the past year have you been worried about losing housing?: No In the past year have you or any family members you live with been unable to get any of the following when it was really needed? Check all that apply:: None Communication Needs Communication Needs Does the patient have a hearing impairment: No Does the patient have a vision impairmen t?: Yes If yes, what is the vision impairment?: Glasses Does the patient have a cognition impair ment?: No Examination Category Sub-Category Detail Notes Category Not es General Examination GENERAL APPEARANCE: well dev eloped, well nourished, in no acute distress HEAD: normocephalic, atrau matic EYES: pupils equal, round, reactive to light and accommodation, sclera non-icteric EARS: normal THROAT: clear NECK/THYROID: neck supple, full ra nge of motion, no cervical lymphadenopathy, no bruits HEART: regular rate and rhy thm, S1, S2 normal, no murmurs LUNGS: clear to auscultatio n bilaterally ABDOMEN: soft, nontender, non distended, bowel sounds present, normal, no organomegaly , no masses palpable NEUROLOGIC: nonfocal, motor stre ngth normal upper and lower extremities, sensory exam intact SKIN: warm and dry, no marlene picious lesions EXTREMITIES: no clubbing, cyanosi s, or edema MALE GENITOURINARY: not examined, uncirc umcised, testes descended bilaterally, no testicular mass RECTAL EXAM: normal tone, no exte rnal hemorrhoids, no masses palpable, prostate normal, stool guaiac negative ORAL CAVITY: mucosa moist
--- NOTE | 2025-01-19 11:15 | A.OFFVIS_ITS ---
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 This was done because his coronary calcium score is significantly elevated at 517. His stress echocardiogram at high workload was negative for ischemia. He is currently taking Eliquis without any complications. Also taking high-intensity statin therapy. He had another visual episode which was not complete loss of vision in his left eye but felt like a curtain that lasted for few sec. he has been seeing by electrician apprentice powerhouse. Denies any significant prolonged palpitation irregular heartbeat. Occasional lightheadedness otherwise takes all his medications. No syncopal episodes. No exertional chest pain or shortness of breath. [facility] Medical History Wears dentures Arthritis Mild heartburn A-fib Acute cholecystitis Seasonal allergies Surgical History Hx laparoscopic cholecystectomy (10/09/23) Hx of left inguinal hernia repair Hx of right inguinal hernia repair H/O colonoscopy Social History Household Members: Spouse Housing: House Are you a primary rehab care assistant to a significant other at home: No Do you presently have visiting nurse or other home services: No Patient Tobacco Use Status: Former Tobacco user Tobacco use type: Cigarette Second Hand Smoke Exposure: No service: No Review of Systems Const Denies chills, Denies fatigue, Denies fever(s), Denies frequent falls, Denies weakness, Denies weight gain and Denies weight loss ENT Denies dizziness Card Denies chest pain, Denies leg edema, Denies lightheadedness, Denies palpitations, Denies dyspnea, Denies dyspnea on exertion, Denies orthopnea and Denies other (loss of consciousness) Resp Denies cough, Denies dyspnea and Denies dyspnea on exertion GI Denies hematochezia and Denies change in stool character Musc Denies abnormal gait, Denies muscle weakness, Denies numbness, Denies radiating pain into limb and Denies tingling Neuro Denies Abnormal speech present, Denies abnormal gait, Denies dizziness, Denies frequent falls, Denies numbness, Denies tingling and Denies weakness Endo Denies fatigue and Denies palpitations Physical Exam Vital Signs: Last Vital Signs Pulse 75 01/19/25 11:17 BP 126/70 01/19/25 11:17 BMI result Body Mass Index 29.6 Const General: cooperative, comfortable, no acute distress, well developed, alert, awake and Physically active Nutritional Appearance: well nourished and overweight Orientation/consciousness: patient oriented x3 Limitations: no limitations HEENT Head: Yes normocephalic and Yes atraumatic Neck Neck: Yes trachea midline, Yes supple and Yes no JVD Carotids: no bruits Resp Effort & Inspection: normal respiratory effort Auscultation: clear to auscultation bilaterally Cardio Jugular venous distension: no JVD Palpation: normal PMI Rate: regular rate Rhythm: regular rhythm Heart sounds: S1 normal heart sound present, S2 normal heart sound present, no click, no gallops, no murmurs and no rubs GI Auscultation: normal bowel sounds Skin General skin exam: no rashes or lesions noted Neuro General: patient oriented x3 and no focal motor deficits Speech: No Abnormal speech present Extrem General: Yes no clubbing, cyanosis or edema Psych Appearance: grossly normal Assessment & Plan Assessment & Plan (1) CAD (coronary artery disease): Code(s): I25.10 - Atherosclerotic heart disease of [place] coronary artery without angina pectoris Category: Medical Plan: Coronary artery disease with significant calcium score in all 3 coronary distribution with negative stress echocardiogram with no current cardiac sym ptoms. Mostly suggestive of nonobstructive atherosclerotic disease. However given his calcium score requires aggressive risk factor modification. Also has significant atherosclerotic changes noted in the aorta. He has significant family history for atherosclerotic disease. Continue high-intensity statin therapy. Advised lipid panel in near future to assess for adequate optimized lipid levels. Target goal LDL less than 60 mg/dL. Continue full oral anticoagulation Eliquis and avoid antiplatelet regimen due to bleeding risk. (2) Paroxysmal atrial fibrillation: Code(s): I48.0 - Paroxysmal atrial fibrillation Category: Medical Plan: Patient with prior history of amaurosis fugax with paroxysmal atrial fibrillation noted on Holter monitor. Continue Eliquis therapy. Risk factors and benefits were discussed. Semi annual renal function test should be pursued. Currently not having any symptoms related to atrial fibrillation. Advised to call me with any symptoms of palpitations. Avoidance of stimulants was discussed. Follow up in the clinic in 1 year's time, sooner PRN. Thank you for allowing me to partake in his care Orders: Orders Lipid Panel Today I25.10 - Atherosclerotic heart disease of [place] coronary artery without angina pectoris Coding Level of Care Code Est Pt Level 4 (92497) Complex EM visit Add On G2211 Diagnoses CAD (coronary artery disease) I25.10 Paroxysmal atrial fibrillation I48.0
[2025-01-19 11:17] VITALS: BP 126/70; PULSE 75; BMI 29.6
--- OUTSIDE RECORDS SUMMARY | 2025-01-19 14:25 | XMS_ITS | Patient Health Record ---
Author Organization [facility] Address [address] [place] [address] Care Team Providers Care Hybrid Tester Name Role Phone Rory Tamez MD Primary Care Provider Chilo Adam [phone] Allergies Allergen (clinical drug ingredient) Drug/Non Drug [...] Problem Status W/U Status Risk Notes Problem 045927879 Encounter for screening for malignant neoplasm of colon (Z12.11) Active confirmed Problem History of adenomatous polyp of colon (597194784) History of adenomatous polyp of colon (Z86.010) Active confirmed Problem Screening for malignant neoplasm of rectum (821358977) Encounter for screening for malignant neoplasm of rectum (Z12.12) Active confirmed Problem 22818755 Preprocedural examination (Z01.818) Active confirmed Problem History of polyp of colon (situation) (068676683) History of colon polyps (Z86.010) Active confirmed Problem Diverticulosis of colon (083322506) Diverticulosis of colon (K57.30) Active confirmed Plan Of Treatment Future Test Test Name Order Date COLONOSCOPY 05/11/2015 COLONOSCOPY 11/06/2021 Insurance Providers Payer Name Payer Address Payer Phone Subscriber Number Group Number Insured Name Patient Relationship to Insured Coverage Start Date Coverage End Date [facility] [address] [place] [address] [id number] ALYSSA HILL Self - patient is the insured Medical (General) History Medical History History ICD Code Denies ND,DM,CVA,Lung disease,renal dise ase Colonoscopy 08/2015 with a small tubular aenoma removed Surgical History Surgery Date(Month/Year) Hernia repair-left inguinal 1987 Hernia repair - right inguinal
--- OUTSIDE RECORDS SUMMARY | 2025-01-19 14:26 | XMS_ITS | Patient Health Record ---
Author Organization Rory Tamez MD Address [address] [place], [place] [phone] Care Team Providers Care Special Education Administrator Name Role Phone Rory Tamez Primary Care Provider [phone] Allergies No Known Allergies Results Component Value Reference Range Notes Complete Blood Count Auto Di ff Reviewed date:07/16/2024 05:17:22 PM Interpretation: Performing Lab:[facility], [address] [place] [phone] Notes/Report: White Blood Count 5.1 4.8-10.8 X10*3/uL [...] NRBC Abs Auto 0.000 0.0-0.012 X10*3/uL Comprehensive [place]. Panel Fa st Reviewed date:07/16/2024 05:16:56 PM Interpretation: Performing Lab:[facility], [address] [place] [phone] Notes/Report: Sodium 138 135-145 mmol/L Potassium 4.2 [...] Panel Reviewed date:07/16/2024 05:11:31 PM Interpretation: Performing Lab:[facility], [address] [place] [phone] Notes/Report: Triglycerides 68 <150 mg/dL Desirable Triglyceride: [...] (Free>4and<10) Reviewed date:07/16/2024 05:12:50 PM Interpretation: Performing Lab:[facility], [address] [place] [phone] Notes/Report: PSA,Total (Free>4and<10) 1.08 0.00-4.00 ng/mL A [...] t Reviewed date:07/16/2024 05:12:41 PM Interpretation: Performing Lab:[facility], [address] [place] [phone] Notes/Report: Urine, Clean Catch Color Urine Yellow Appearance Urine Clear PH 6.5 5.0-9.0 Glucose Urine UA Negative Negative mg/dL Urine Blood Negative Negative Specific [place] - Urine 1.015 1.005-1.025 Urine Protein Negative [...] >THE REFERRAL HAS BEEN FAXED TO [facility], Elicia Miranda 07/09/2024 01:09:35 PM >patient [...] Problem Status W/U Status Risk Notes Problem 55257138 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 Problem Essential hypertension (27446720) Essential (primary) hypertension (I10) Active confirmed Problem 240902126 Tubular adenoma of colon (D12.6) Active confirmed Problem 166871601 Vision loss (H54.7) Active confirmed Problem High cholesterol (42851560) High cholesterol (E78.00) Active confirmed Problem 71908173 Hepatic cyst (K76.89) Active confirmed Problem 73396275337110 Lesion of tonsil (J35.9) Active confirmed Vital Signs Blood pressure diastolic 70 mm Hg 07/23/2024 Height 69.5 in 07/23/2024 Blood pressure systolic 132 mm Hg 07/23/2024 Weight 201 lbs 07/23/2024 BMI 29.25 kg/m2 07/23/2024 Encounters Encounter Location Date Provider Diagnosis Rory Tamez MD [address] [place] [id number] 07/16/2024 Rory Tamez Blood tests for routine general physical examination Z00.00 ; Essential (primary) hypertension I10 and High cholesterol E78.00 Rory Tamez MD [address] [place] [id number] 03/04/2024 Rory Tamez Amaurosis fugax G45. 3 Rory Tamez MD [address] [place] [id number] 03/29/2024 Rory Tamez Hepatic cyst K76.89 and Vision loss H54.7 Rory Tamez MD [address] [place], [place] [id number] 05/27/2024 Rory Tamez Vision loss H54.7 Rory Tamez MD [address] [place], [place] [id number] 07/23/2024 Rory Tamez Essential (primary) hypertension I10 ; Annual physical exam Z00.00 ; High cholesterol E78.00 ; Amaurosis fugax G45.3 ; Colon cancer screening Z12.11 and Depression screening Z13.31 Rory Tamez MD [address] [place], [place] [id number] 03/11/2024 Rory Tamez Foreign body sensation, bilateral eyes H57.8A3 Assessments Encounter Date Diagnosis (ICD Code) Assessment Notes Treatment Notes Treatment Clinical Notes Section Notes 07/16/2024 Blood tests for routine general physical examination (ICD-10 - Z00.00) 03/04/2024 Amaurosis fugax (ICD-10 - G45.3) aspirin 81 mg daily MRA order faxed to [facility] / Echo order faxed to [facility] dept, pending diagnostic testing 03/29/2024 Hepatic [...] abdomen limited 03/29/2024 Next Appt Details Provider Name:Rorylisa Arias ier, 07/21/2025 07:45:00 AM, [address] [place] [address], [address] [place] [address], [phone], Provider Name:Rorylisa Arias ier, 07/28/2025 08:00:00 AM, [address] [place] [address], Suite [facility], [place], [place], [phone], Insurance Providers Payer Name Payer Address Payer Phone Subscriber Number Group Number Insured Name Patient Relationship to Insured Coverage Start Date Coverage End Date [facility] [employer] [facility] [employer] [address] [place] [address] [id number] ALYSSA HILL Self - patient is the insured Medical (General) History Medical History History ICD Code colonoscopy done 08/07/15 w/Dr Kay Bennett - repeat either 5yrs due (2020); Colonoscopy 12/17/21 due 5yr( 2026) Surgical History Surgery Date(Month/Year) Repair Rt Inguinal Hernia w/Mesh 05/2017
== END 2025-01-19 12:13 | disposition home or self-care (01) ==
LOC: HO.HCS 11:13
PROVIDERS: PCP Internal Medicine; Visit Provider Internal Medicine Cardiovascular Disease
DX: I25.10 Atherosclerotic heart disease of native coronary artery without angina pectoris (principal); I48.0 Paroxysmal atrial fibrillation
CPT/HCPCS: 99214

== ENCOUNTER → 2025-01-19 11:13 | Outpatient (BNVA) | payer OTHER, SELFPAY | PROVIDERS: PCP Internal Medicine; Visit Provider Internal Medicine Cardiovascular Disease | DX: I25.10 Atherosclerotic heart disease of native coronary artery without angina pectoris (principal); I48.0 Paroxysmal atrial fibrillation | CPT/HCPCS: 99212 ==